=== PATIENT | male | born 1945 | race Caucasian/White ===

== ENCOUNTER 2017-07-29 05:44 | Emergency (ER) | payer MEDICARE ==
--- NOTE | 2017-07-29 08:20 | RAD ---
RIGHT FOOT 3 VIEWS: Date: 07/29/17 PROVIDED CLINICAL HISTORY: Foot pain status post fall. FINDINGS: There are obliquely oriented, mildly displaced fractures of the second and third metatarsals at the p roximal metatarsal shafts. Nondisplaced fracture involving the fourth metatarsal in the region of the proximal metatarsal shaft is also demonstrated. Alignment at the Lisfranc joint appears preserved. N o additional fracture is evident. Degenerative changes are seen at the first MTP joint. Vascular calc ifications are seen. Plantar calcaneal enthesophyte formation noted. IMPRESSION: Second through fourth metatarsal shaft fractures as above. POS: [facility]
== END 2017-07-29 07:48 | disposition home or self-care (01) ==
LOC: ERS 05:44
DX: S92.314A Nondisplaced fracture of first metatarsal bone, right foot, initial encounter for closed fracture (principal); S92.324A Nondisplaced fracture of second metatarsal bone, right foot, initial encounter for closed fracture; S92.344A Nondisplaced fracture of fourth metatarsal bone, right foot, initial encounter for closed fracture; S92.334A Nondisplaced fracture of third metatarsal bone, right foot, initial encounter for closed fracture; E11.22 Type 2 diabetes mellitus with diabetic chronic kidney disease; I12.0 Hypertensive chronic kidney disease with stage 5 chronic kidney disease or end stage renal disease; N18.6 End stage renal disease; Z79.899 Other long term (current) drug therapy; W19.XXXA Unspecified fall, initial encounter
CPT/HCPCS: 28470

== ENCOUNTER 2017-08-09 09:29 | Outpatient (CLI) | payer MEDICARE ==
--- NOTE | 2017-08-09 12:03 | HP ---
DATE OF SERVICE: 08/09/2017 HISTORY OF PRESENT ILLNESS: Mr. Rico Chandler is a very pleasant 72-year-old gentleman who pres ents to the Wound Center for evaluation of an ulceration of the left medial buttock. The patient sta zaina that the ulceration has been present for approximately 2 months. He states that 1 month ago; how ever, the ulceration became associated with discomfort and at this time, he was seen by Dr. Arora. The patient states that he was placed on a course of p.o. antibiotics by Dr. Arora. He states that in add ition, he was instructed to perform dressing changes of a steroid cream followed by a secondary dress ing twice a day. The patient was told that if the ulceration fails to heal, he should present to the Wound Center for further evaluation and treatment. PAST MEDICAL HISTORY: 1. Hypertension. 2. Diabetes mellitus. 3. Obstructive sleep apnea. 4. Charcot arthropathy of the left ankle. 5. End-stage renal disease. 6. Secondary hyperparathyroidism. 7. Chronic obstructive pulmonary disease. 8. Benign prostatic hypertrophy. 9. Diverticulosis. 10. Anemia of renal disease. 11. History of lower GI bleeding secondary to hemorrhoids. 12. History of subdural hematoma. 13. Peripheral vascular disease. PAST SURGICAL HISTORY: 1. Surgery for strabismus on the left eye. 2. Right eye surgery. 3. Tonsillectomy. 4. Hemodialysis access procedures. 5. 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 MEDICATIONS: The patient does not have a list of his medications with him today. ALLERGIES: LATEX. SOCIAL HISTORY: Negative for tobacco or EtOH use. FAMILY HISTORY: Significant for diabetes mellitus. The patient states that his mother was diagnosed with diabetes mellitus. Family history is negative for coronary artery disease. PHYSICAL EXAMINATION: VITAL SIGNS: Temperature 97.8, pulse 72, respirations 18 and blood pressure 133/61. Accu-Chek 114. GENERAL: A 72-year-old gentleman sitting on chair in examination room in no acute distress. HEENT: Normocephalic and atraumatic. NECK: No nuchal rigidity. CHEST: Clear to auscultation. CARDIAC: Regular rate and rhythm. ABDOMEN: Soft. EXTREMITIES: No clubbing, cyanosis or edema. NEUROLOGIC: Grossly nonfocal. BACK: A wound of the left medial buttock is present, which measures approximately 0.8 x 0.8 cm. Gra nulation tissue is present within the wound margins. Necrotic and nonviable tissue present within th e wound margins was debrided with an excisional full-thickness debridement with the use of a curette. Desiccated tissue at the periphery of the wound was excised with the use of scissors. No purulent drainage is associated with the wound. No erythema of the skin surrounding the wound is present. No maceration of the skin of the periwound is noted. ASSESSMENT AND PLAN: 1. Left medial buttock ulceration as described above. Dressing changes of Arglaes powder and border ed gauze will be initiated today. These dressing changes are to be performed on a daily basis after cleansing and irrigation with the assistance of Home Health. No antibiotics will be prescribed today based upon the appearance of the wound. I will see Mr. Chandler again in 1 week. 2. Hypertension. 3. Diabetes mellitus. The patient's Accu-Chek in clinic today is 114. The patient has been told th at for optimal wound healing, his blood glucoses should remain below 150. 4. Obstructive sleep apnea. 5. Charcot arthropathy of left ankle. 6. End-stage renal disease. 7. Secondary hyperparathyroidism. 8. Chronic obstructive pulmonary disease. 9. Benign prostatic hypertrophy. 10. Diverticulosis. 11. Anemia of renal disease. 12. History of lower gastrointestinal bleeding secondary to hemorrhoids. 13. History of subdural hematoma. 14. Peripheral vascular disease.
[2017-08-11] MEDS ORDERED: Sodium Chloride 0.9% 15 ML NEB ONE (12:29)
[2017-08-11] MEDS ORDERED: Lidocaine 2% Jelly 5 ML TUBE ONE (12:29)
== END 2017-08-09 09:30 | disposition home or self-care (01) ==
LOC: WCC 09:29
PROVIDERS: ATTEND Family Medicine
DX: E11.622 Type 2 diabetes mellitus with other skin ulcer (principal); L98.419 Non-pressure chronic ulcer of buttock with unspecified severity; I12.0 Hypertensive chronic kidney disease with stage 5 chronic kidney disease or end stage renal disease; E11.22 Type 2 diabetes mellitus with diabetic chronic kidney disease; N18.6 End stage renal disease; D63.1 Anemia in chronic kidney disease; N25.81 Secondary hyperparathyroidism of renal origin; J44.9 Chronic obstructive pulmonary disease, unspecified; N40.0 Benign prostatic hyperplasia without lower urinary tract symptoms; K57.90 Diverticulosis of intestine, part unspecified, without perforation or abscess without bleeding; M14.672 Charcot's joint, left ankle and foot; G47.33 Obstructive sleep apnea (adult) (pediatric); I73.9 Peripheral vascular disease, unspecified; Z87.19 Personal history of other diseases of the digestive system; Z86.79 Personal history of other diseases of the circulatory system
CPT/HCPCS: 11042; 97139; G0463; 99203

== ENCOUNTER 2017-08-16 10:13 | Outpatient (CLI) | payer MEDICARE ==
--- NOTE | 2017-08-16 11:00 | PRG ---
DATE OF SERVICE: 08/16/2017 HISTORY: Mr. Rico Chandler is a very pleasant 72-year-old gentleman who presents to the Wound Cent er for evaluation of an ulceration of the right medial buttock. The patient stated that the ulcerati on had been present for approximately 2 months when he initially presented to the Wound Center. He s tated that 1 month prior to being seen in the Wound Center, the ulceration became associated with dis comfort and at this time, he was seen by Dr. Arroa. The patient stated that he was placed on a course of p.o. antibiotics by Dr. Arora. He stated that in addition, he was instructed to perform dressing ch anges of a steroid cream followed by a secondary dressing twice a day. The patient was told that if the ulceration fail to heal, he should present to the Wound Center for further evaluation and treatme nt. After being seen in the Wound Center, the patient was placed on dressing changes of Arglaes powd er and bordered gauze on a daily basis after cleansing and irrigation with the assistance of [facility]. The patient has been receiving these dressing changes as prescribed. PHYSICAL EXAMINATION: VITAL SIGNS: Temperature 97.4, pulse 60, respirations 16, blood pressure 121/60. Accu-Chek 166. EXTREMITIES: A wound of the right medial buttock is present, which measures approximately 0.9 x 0.6 cm. The dimensions of the wound at the time of the patient's visit on 08/09/2017 were approximately 0.8 x 0.8 cm. Granulation tissue is present within the wound margins. Nonviable tissue present with in the wound margins was debrided with an excisional full-thickness debridement with the use of a cur ette. No purulent drainage is associated with the wound. No erythema of the skin surrounding the wo und is present. No maceration of the skin of the periwound is noted. ASSESSMENT AND PLAN: 1. Right medial buttock ulceration as described above. Dressing changes of Arglaes powder and borde red gauze will be continued on a daily basis after cleansing and irrigation with the assistance of [facility]. I will see Mr. Chandler again in two weeks. 2. Hypertension. 3. Diabetes mellitus. The patient's Accu-Chek in clinic today is 166. The patient has been reminde d that for optimal wound healing, his blood glucoses should remain below 150. 4. Obstructive sleep apnea. 5. Charcot's arthropathy of left ankle. 6. End-stage renal disease. 7. Secondary hyperparathyroidism. 8. Chronic obstructive pulmonary disease. 9. Benign prostatic hypertrophy. 10. Diverticulosis. 11. Anemia of renal disease. 12. History of lower gastrointestinal bleeding secondary to hemorrhoids. 13. History of subdural hematoma. 14. Peripheral vascular disease.
[2017-08-16] MEDS ORDERED: Sodium Chloride 0.9% 15 ML NEB ONE (17:55)
[2017-08-16] MEDS ORDERED: Lidocaine 2% Jelly 5 ML TUBE ONE (17:55)
== END 2017-08-16 10:14 | disposition home or self-care (01) ==
LOC: WCC 10:13
PROVIDERS: ATTEND Family Medicine
DX: E11.622 Type 2 diabetes mellitus with other skin ulcer (principal); L98.419 Non-pressure chronic ulcer of buttock with unspecified severity; E11.22 Type 2 diabetes mellitus with diabetic chronic kidney disease; I12.0 Hypertensive chronic kidney disease with stage 5 chronic kidney disease or end stage renal disease; N18.6 End stage renal disease; G47.33 Obstructive sleep apnea (adult) (pediatric); J44.9 Chronic obstructive pulmonary disease, unspecified; M14.672 Charcot's joint, left ankle and foot; N25.81 Secondary hyperparathyroidism of renal origin; N40.0 Benign prostatic hyperplasia without lower urinary tract symptoms; K57.90 Diverticulosis of intestine, part unspecified, without perforation or abscess without bleeding; D63.1 Anemia in chronic kidney disease; I73.9 Peripheral vascular disease, unspecified; Z87.19 Personal history of other diseases of the digestive system; Z86.69 Personal history of other diseases of the nervous system and sense organs
CPT/HCPCS: A4218

== ENCOUNTER 2017-08-30 10:01 | Outpatient (CLI) | payer MEDICARE ==
[~2017-08-30 10:01] MED LIST: Lidocaine 2% Jelly 5 ML TUBE ONE; Sodium Chloride 0.9% 15 ML NEB ONE
--- NOTE | 2017-08-30 12:16 | PRG ---
DATE OF SERVICE: 08/30/2017 HISTORY: Mr. Rico Chandler is a very pleasant 72-year-old gentleman, who presents to the [facility] for evaluation of an ulceration of the right medial buttock. The patient stated that the ul ceration had been present for approximately 2 months when he initially presented to the Wound Center. He stated that 1 month prior to being seen in the Wound Center, the ulceration became associated wi th discomfort and at this time he was seen by Dr. Arora. The patient stated that he was placed on a co urse of p.o. antibiotics by Dr. Arora. He stated that in addition, he was instructed to perform dressi ng changes of the steroid cream followed by a secondary dressing twice a day. The patient was told t hat if the ulceration failed to heal, he should present to the Wound Center for further evaluation an d treatment. After being seen in the Wound Center, the patient was placed on dressing changes of Arg laes powder and bordered gauze on a daily basis after cleansing and irrigation with the assistance of Home Health. The patient has been receiving these dressing changes as prescribed. PHYSICAL EXAMINATION: VITAL SIGNS: Temperature 97.5, pulse 73, respirations 19, blood pressure 142/65. Accu-Chek is 127. EXTREMITIES: A wound of the right medial buttock is present, which measures approximately 0.8 x 0.6 cm. The dimensions of the wound at the time of the patient's visit on 08/16/2017 were approximately 0.9 x 0.6 cm. Granulation tissue is present within the wound margins. Nonviable tissue present with in the wound margins was debrided with an excisional full-thickness debridement with the use of a cur ette. No purulent drainage is associated with the wound. No erythema of the skin surrounding the wo und is present. No maceration of the skin of the periwound is noted. ASSESSMENT AND PLAN: 1. Right medial buttock ulceration as described above. Dressing changes of Arglaes powder will be d iscontinued. Dressing changes of Medihoney gauze and Tegaderm foam will be initiated today. These d ressing changes are to be performed every other day after cleansing and irrigation with the assistanc e of Home Health. I will see Mr. Chandler again in two weeks. 2. Hypertension. 3. Diabetes mellitus. The patient's Accu-Chek in clinic today is 127. The patient has been reminde d that for optimal wound healing, his blood glucoses should remain below 150. 4. Obstructive sleep apnea. 5. Charcot's arthropathy of left ankle. 6. End-stage renal disease. 7. Secondary hyperparathyroidism. 8. Chronic obstructive pulmonary disease. 9. Benign prostatic hypertrophy. 10. Diverticulosis. 11. Anemia of renal disease. 12. History of lower gastrointestinal bleeding secondary to hemorrhoids. 13. History of subdural hematoma. 14. History of peripheral vascular disease.
== END 2017-08-30 10:02 | disposition home or self-care (01) ==
LOC: WCC 10:01
PROVIDERS: ATTEND Family Medicine
DX: E11.622 Type 2 diabetes mellitus with other skin ulcer (principal); L98.419 Non-pressure chronic ulcer of buttock with unspecified severity; E11.610 Type 2 diabetes mellitus with diabetic neuropathic arthropathy; I12.0 Hypertensive chronic kidney disease with stage 5 chronic kidney disease or end stage renal disease; E11.22 Type 2 diabetes mellitus with diabetic chronic kidney disease; N18.6 End stage renal disease; D63.1 Anemia in chronic kidney disease; N25.81 Secondary hyperparathyroidism of renal origin; G47.33 Obstructive sleep apnea (adult) (pediatric); J44.9 Chronic obstructive pulmonary disease, unspecified; N40.0 Benign prostatic hyperplasia without lower urinary tract symptoms; K57.90 Diverticulosis of intestine, part unspecified, without perforation or abscess without bleeding; Z86.79 Personal history of other diseases of the circulatory system; Z87.898 Personal history of other specified conditions; Z87.19 Personal history of other diseases of the digestive system
CPT/HCPCS: 11042; A4218

== ENCOUNTER 2017-09-13 09:53 | Outpatient (CLI) | payer MEDICARE ==
[2017-09-13] MEDS ORDERED: Lidocaine 2% Jelly 5 ML TUBE ONE (10:00)
[2017-09-13] MEDS ORDERED: Sodium Chloride 0.9% 15 ML NEB ONE (10:00)
--- NOTE | 2017-09-13 11:26 | PRG ---
DATE OF SERVICE: 09/13/2017 HISTORY: Mr. Rico Chandler is a very pleasant 72-year-old gentleman who presents to the Wound Center for evaluation of an ulceration of the right medial buttock. The patient previously stated t hat the ulceration had been present for approximately 2 months when he initially presented to the [facility]. He stated that 1 month prior to being seen in the Wound Center, the ulceration became ass ociated with discomfort and at this time he was seen by Dr. Arora. The patient stated that he was plac ed on a course of p.o. antibiotics by Dr. Arora. He stated that in addition, he was instructed to perf orm dressing changes of a steroid cream followed by secondary dressing twice a day. The patient was told that if the ulceration fail to heal, he should present to the Wound Center for further evaluatio n and treatment. After being seen in the Wound Center, the patient was placed on dressing changes of Arglaes powder and bordered gauze on a daily basis after cleansing and irrigation with the assistanc e of [facility]. The patient received these dressing changes as prescribed. At the time of the pat ient's last visit, dressing changes of Medihoney were initiated. The patient has been receiving thes e dressing changes every other day after cleansing and irrigation also as prescribed. PHYSICAL EXAMINATION: VITAL SIGNS: Temperature 97.5, pulse 63, respirations 18, blood pressure 154/69. Accu-Chek 154. EXTREMITIES: A wound of the right medial buttock is present which measures approximately 0.3 x 0.5 c m. The dimensions of the wound at the time of the patient's visit on 08/30/2017 were approximately 0 .8 x 0.6 cm. Granulation tissue is present within the wound margins. Nonviable tissue present withi n the wound margins was debrided with an excisional full-thickness debridement with the use of a cure tte and scissors. No purulent drainage is associated with the wound. No erythema of the skin surrou nding the wound is present. No maceration of the skin of the periwound is noted. ASSESSMENT AND PLAN: 1. Right medial buttock ulceration as described above. Dressing changes of Medihoney gauze and Opti foam will be continued every other day after cleansing and irrigation with the assistance of [facility]. I will see Mr. Chandler again in two weeks if ulceration is still present at this time. 2. Hypertension. 3. Diabetes mellitus. The patient's Accu-Chek in clinic today is 154. The patient has been reminde d that for optimal wound healing, his blood glucoses should remain below 150. 4. Obstructive sleep apnea. 5. Charcot's arthropathy of left ankle. 6. End-stage renal disease. 7. Secondary hyperparathyroidism. 8. Chronic obstructive pulmonary disease. 9. Benign prostatic hypertrophy. 10. Diverticulosis. 11. Anemia of renal disease. 12. History of lower gastrointestinal bleeding secondary to hemorrhoids. 13. History of subdural hematoma. 14. History of peripheral vascular disease.
== END 2017-09-13 09:54 | disposition home or self-care (01) ==
LOC: WCC 09:53
PROVIDERS: ATTEND Family Medicine
DX: L89.319 Pressure ulcer of right buttock, unspecified stage (principal); G47.33 Obstructive sleep apnea (adult) (pediatric); E11.610 Type 2 diabetes mellitus with diabetic neuropathic arthropathy; E11.22 Type 2 diabetes mellitus with diabetic chronic kidney disease; I12.0 Hypertensive chronic kidney disease with stage 5 chronic kidney disease or end stage renal disease; N18.6 End stage renal disease; D63.1 Anemia in chronic kidney disease; J44.9 Chronic obstructive pulmonary disease, unspecified; N40.0 Benign prostatic hyperplasia without lower urinary tract symptoms; K57.90 Diverticulosis of intestine, part unspecified, without perforation or abscess without bleeding; N25.81 Secondary hyperparathyroidism of renal origin; Z87.19 Personal history of other diseases of the digestive system; Z86.79 Personal history of other diseases of the circulatory system

== ENCOUNTER 2017-09-27 09:59 | Outpatient (CLI) | payer MEDICARE ==
--- NOTE | 2017-09-27 12:09 | PRG ---
DATE OF SERVICE: 09/27/2017 HISTORY: Mr. Rico Chandler is a very pleasant 72-year-old gentleman who presents to the Wound Center for evaluation of an ulceration of the right medial buttock. The patient previously stated t hat the ulceration had been present for approximately 2 months when he initially presented to the [facility]. The patient stated that one month prior to being seen in the Wound Center, the ulceration became associated with discomfort and at this time he was seen by Dr. Arora. The patient stated that he was placed on a course of p.o. antibiotics by Dr. Arora. He stated that in addition, he was instruc chastity to perform dressing changes of a steroid cream followed by a secondary dressing twice a day. The patient was told that if the ulceration failed to heal, he should present to the Wound Center for fu rther evaluation and treatment. After being seen in the Wound Center, the patient was placed on dres sing changes of Arglaes powder and bordered gauze on a daily basis after cleansing and irrigation wit h the assistance of Home Health. The patient received these dressing changes as prescribed. Subsequ ently, dressing changes of Medihoney were initiated. The patient has been receiving these dressing c hanges every other day after cleansing and irrigation also with the assistance of Home Health. PHYSICAL EXAMINATION: VITAL SIGNS: Temperature 97.5, pulse 59, respirations 18, blood pressure 141/66. Accu-Chek 166. EXTREMITIES: A wound of the right medial buttock is present which measures approximately 0.5 x 0.7 c m. Granulation tissue is present within the wound margins. Necrotic and nonviable tissue present wi thin the wound margins was debrided with an excisional full-thickness debridement with the use of a c urette and scissors. No purulent drainage is associated with the wound. No erythema of the skin ger rounding the wound is present. No maceration of the skin of the periwound is noted. ASSESSMENT AND PLAN: 1. Right medial buttock ulceration as described above. Dressing changes of Medihoney gauze and Opti foam will be continued every other day after cleansing and irrigation with the assistance of Home [facility] for 1 more week or until the ulceration has healed completely. The wound has almost completely h ealed and Mr. Chandler will be discharged from clinic today with followup on a p.r.n. basis. 2. Hypertension. 3. Diabetes mellitus. The patient's Accu-Chek in clinic today is 166. The patient has been reminde d that for optimal wound healing, his blood glucoses should remain below 150. 4. Obstructive sleep apnea. 5. Charcot's arthropathy of left ankle. 6. End-stage renal disease. 7. Secondary hyperparathyroidism. 8. Chronic obstructive pulmonary disease. 9. Benign prostatic hypertrophy. 10. Diverticulosis. 11. Anemia of renal disease. 12. History of lower gastrointestinal bleeding secondary to hemorrhoids. 13. History of subdural hematoma. 14. History of peripheral vascular disease.
== END 2017-09-27 10:00 | disposition home or self-care (01) ==
LOC: WCC 09:59
PROVIDERS: ATTEND Family Medicine
DX: L98.419 Non-pressure chronic ulcer of buttock with unspecified severity (principal); G47.33 Obstructive sleep apnea (adult) (pediatric); E11.22 Type 2 diabetes mellitus with diabetic chronic kidney disease; I12.0 Hypertensive chronic kidney disease with stage 5 chronic kidney disease or end stage renal disease; N18.6 End stage renal disease; D63.1 Anemia in chronic kidney disease; E11.610 Type 2 diabetes mellitus with diabetic neuropathic arthropathy; N25.81 Secondary hyperparathyroidism of renal origin; J44.9 Chronic obstructive pulmonary disease, unspecified; N40.0 Benign prostatic hyperplasia without lower urinary tract symptoms; K57.90 Diverticulosis of intestine, part unspecified, without perforation or abscess without bleeding; Z86.79 Personal history of other diseases of the circulatory system; Z87.19 Personal history of other diseases of the digestive system
CPT/HCPCS: 11042

== ENCOUNTER 2018-02-14 14:30 | Outpatient (CLI) | payer MEDICARE ==
--- NOTE | 2018-02-14 15:49 | PRG ---
DATE OF SERVICE: 02/14/2018 HISTORY: Mr. Rico Chandler is a very pleasant 72-year-old gentleman, who presents to the [facility] for evaluation of an ulceration of the right medial buttock. The patient was previously seen in the Wound Center for an ulceration of the right medial buttock on 09/27/2017. The patient states viola t after healing completely, the ulceration recurred. The patient states that he was recently seen by Dr. Arora and at this time referred to the Wound Center for further evaluation and treatment. The pat ient states that he spends long periods of time in a chair, particularly in dialysis. The patient st ates that he tries to offload the right buttock wound with the use of a cushion. The patient has no other complaints today. He denies any fever or chills. PHYSICAL EXAMINATION: VITAL SIGNS: Temperature 97.6, pulse 71, respirations 18, blood pressure 155/71. Accu-Chek 172. EXTREMITIES: A wound of the right medial buttock is present, which measures approximately 0.6 x 0.9 cm. Granulation tissue is present within the wound margins. Necrotic and nonviable tissue present w ithin the wound margins was debrided with an excisional full-thickness debridement with the use of a curette. No purulent drainage is associated with the wound. No erythema of the skin surrounding the wound is present. No maceration of the skin of the periwound is noted. ASSESSMENT AND PLAN: 1. Right medial buttock ulceration as described above. Dressing changes of Medihoney and Mepilex sondra rder are to be performed on a daily basis after cleansing and irrigation with the assistance of Home Health. I will see Mr. Chandler again in two weeks. 2. Hypertension. 3. Diabetes mellitus. The patient's Accu-Chek in clinic today is 172. The patient has been reminde d that for optimal wound healing, his blood glucoses should remain below 150. 4. Obstructive sleep apnea. 5. Charcot's arthropathy of left ankle. 6. End-stage renal disease. 7. Secondary hyperparathyroidism. 8. Chronic obstructive pulmonary disease. 9. Benign prostatic hypertrophy. 10. Diverticulosis. 11. Anemia of renal disease. 12. History of lower gastrointestinal bleeding secondary to hemorrhoids. 13. History of subdural hematoma. 14. History of peripheral vascular disease.
== END 2018-02-14 14:31 | disposition home or self-care (01) ==
LOC: WCC 14:30
PROVIDERS: ATTEND Family Medicine
DX: E11.622 Type 2 diabetes mellitus with other skin ulcer (principal); L98.499 Non-pressure chronic ulcer of skin of other sites with unspecified severity; I12.0 Hypertensive chronic kidney disease with stage 5 chronic kidney disease or end stage renal disease; N18.6 End stage renal disease; D63.1 Anemia in chronic kidney disease; J44.9 Chronic obstructive pulmonary disease, unspecified; M14.672 Charcot's joint, left ankle and foot; G47.33 Obstructive sleep apnea (adult) (pediatric); N40.0 Benign prostatic hyperplasia without lower urinary tract symptoms; N25.81 Secondary hyperparathyroidism of renal origin; Z87.19 Personal history of other diseases of the digestive system; Z86.79 Personal history of other diseases of the circulatory system
CPT/HCPCS: A4218

== ENCOUNTER 2018-02-28 14:26 | Outpatient (CLI) | payer MEDICARE ==
[2018-02-28] MEDS ORDERED: Sodium Chloride 0.9% 15 ML NEB ONE (15:00)
--- NOTE | 2018-02-28 17:28 | PRG ---
DATE OF SERVICE: 02/28/2018 HISTORY: Mr. Rico Chandler is a very pleasant 72-year-old gentleman who presents to the Wound Cent er for evaluation of an ulceration of the right medial buttock. The patient was previously seen in [facility] for an ulceration of the right medial buttock on 09/27/2017. The patient stated that after healing completely, the ulceration recurred. The patient stated that he was recently seen by Dr. Arora and at this time referred to the Wound Center for further evaluation and treatment. The veronica ent stated that he spends long periods of time in a chair, particularly in dialysis. The patient sta chastity that he tries to offload the right buttock wound with the use of cushion. Mr. Chadnler has no oth er complaints today. He denies any fever or chills. PHYSICAL EXAMINATION: VITAL SIGNS: Temperature 97.6, pulse 60, respirations 17, blood pressure 152/72. Accu-Chek 140. EXTREMITIES: The wound of the right medial buttock has healed completely. ASSESSMENT AND PLAN: 1. Right medial buttock ulceration. As stated above, the wound has healed completely. Mr. Chandler will be discharged from clinic today with followup on a p.r.n. basis. 2. Hypertension. 3. Diabetes mellitus. The patient's Accu-Chek in clinic today is 140. The patient has been reminde d that for optimal wound healing, his blood glucoses should remain below 150. 4. Obstructive sleep apnea. 5. Charcot's arthropathy of left ankle. 6. End-stage renal disease. 7. Secondary hyperparathyroidism. 8. Chronic obstructive pulmonary disease. 9. Benign prostatic hypertrophy. 10. Diverticulosis. 11. Anemia of renal disease. 12. History of lower gastrointestinal bleeding secondary to hemorrhoids. 13. History of subdural hematoma. 14. History of peripheral vascular disease.
== END 2018-02-28 14:27 | disposition home or self-care (01) ==
LOC: WCC 14:26
PROVIDERS: ATTEND Family Medicine
DX: E11.622 Type 2 diabetes mellitus with other skin ulcer (principal); L98.419 Non-pressure chronic ulcer of buttock with unspecified severity; I12.9 Hypertensive chronic kidney disease with stage 1 through stage 4 chronic kidney disease, or unspecified chronic kidney disease; E11.22 Type 2 diabetes mellitus with diabetic chronic kidney disease; N18.6 End stage renal disease; D63.1 Anemia in chronic kidney disease; J44.9 Chronic obstructive pulmonary disease, unspecified; G47.33 Obstructive sleep apnea (adult) (pediatric); N40.0 Benign prostatic hyperplasia without lower urinary tract symptoms; K57.30 Diverticulosis of large intestine without perforation or abscess without bleeding; N25.81 Secondary hyperparathyroidism of renal origin; E11.610 Type 2 diabetes mellitus with diabetic neuropathic arthropathy; Z86.79 Personal history of other diseases of the circulatory system; Z87.820 Personal history of traumatic brain injury; Z87.19 Personal history of other diseases of the digestive system
CPT/HCPCS: 97602; A4218

== ENCOUNTER 2019-03-31 13:31 | Inpatient (IN) | payer MEDICARE ==
[2019-03-31] MEDS ORDERED: Albuterol Sulfate 2.5 mg/3 ml Neb ONE (13:45)
[2019-03-31] MEDS ORDERED: Furosemide 40 MG/4 ML VIAL ONE (13:46)
[2019-03-31 13:55] LABS: Actual Bicarbonate (HCO3a) 22.4 mEq/L (22-28); Analyzer IN Cardio ER; CO2 Tension 55.4 mmHg (35.0-45.0); Calcium, Ionized 1.11 mmol/L (1.12-1.30); O2 Tension (PaO2) 64.3 mmHg (> 70.0); Potassium - ABG Lab 4.41 mmol/L (3.70-5.30)
--- NOTE | 2019-03-31 13:57 | RAD ---
RADIOGRAPH CHEST 1 VIEW: DATE: 03/31/2019 TIME: 1:47 PM HISTORY: 73-year-old male in respiratory distress. COMPARISON: 08/27/2015 FINDINGS: New finding of mild-moderate interstitial densities throughout the bilateral mid and left lower lung zone.. These are confluent into alveolar density at right lower lung zone. Previously demonstrated right-sided dialysis catheter is no longer present. Cardiac size at upper limits of normal or mildly enlarged. No pneumothorax. IMPRESSION: Evidence for pulmonary edema.
[2019-03-31 14:04] LABS: Puncture Site LRA; pH, Arterial 7.22 (7.35-7.45)
[2019-03-31 14:09] LABS: Hemoglobin 12.2 g/dL (14.0-18.0); Mean Corpuscular Hemoglobin 33.7 pg (27.0-31.0); Mean Platelet Volume 9.6 fL (7.4-10.4); Platelet Count 221 thou/uL (130-400); RBC Distribution Width 13.1 % (11.5-14.5); Red Blood Cell (RBC) Count 3.63 mill/uL (4.70-6.10); White Blood Cell (WBC) Count 12.7 thou/uL (4.8-10.8)
[2019-03-31] MEDS ORDERED: Rocuronium Bromide 10 MG/ML (10ML VIAL) ONE (14:09)
[2019-03-31] MEDS ORDERED: Ketamine 50 MG/ML (10ML VIAL) ONE (14:09)
[2019-03-31 14:25] LABS: ALT (SGPT) 39 U/L (8-55); AST (SGOT) 34 U/L (5-34); Albumin 4.1 g/dL (3.4-4.8); Alkaline Phosphatase 119 U/L (40-110); Anion Gap 23 mmol/L (10-20); BUN (Urea Nitrogen) 35 mg/dL (8.4-25.7); Bilirubin, Total 0.6 mg/dL (0.2-1.2); CK (CPK) 169 U/L (30-200); Calc. Creatinine Clearance 0 mL/min (70-130); Calcium 8.7 mg/dL (7.8-10.44); Carbon Dioxide 22 mmol/L (23-31); Chloride 100 mmol/L (98-107); Estimated GFR-MDRD 10; Globulin 3.4 g/dL (2.4-3.5); Glucose 381 mg/dL (83-110); Potassium 4.2 mmol/L (3.5-5.1); Protein, Total 7.5 g/dL (5.8-8.1); Sodium 141 mmol/L (136-145)
[2019-03-31] MEDS ORDERED: fentaNYL Citrate/PF 2,000 MCG in Sodium Chloride 0.9% 60 ML IV SCH ×2 (14:30→21:15)
[2019-03-31 14:42] LABS: Band 6 % (5-11); Eosinophils 1 % (0-10); Lymphocytes 15 % (21-51); MDiff Complete? YES; Macrocytosis SLIGHT = 6-15 cells (100X) (0-5/hpf); Monocytes 5 % (0-10); Neutrophil 45 % (42-75); Platelet Morphology Comment Appears Adequate; Polychromasia SLIGHT = 2-3 cells (100X) (0-2/hpf); Reactive Lymphocytes 28 % (0-10)
[2019-03-31 14:56] LABS: CKMB 3.4 ng/mL (0-6.6)
[2019-03-31] MEDS ORDERED: Sodium Bicarb 50 MEQ/50 ML Abboject 8.4% SYRINGE ONE (15:00)
[2019-03-31] MEDS ORDERED: Calcium Chloride 1 GM/10 ML Abboject SYRINGE ONE (15:00)
[2019-03-31] MEDS ORDERED: Dextrose 50% Abboject 50 ML SYRINGE ONE (15:00)
[2019-03-31 15:02] LABS: Actual Bicarbonate (HCO3a) 23.4 mEq/L (22-28); Analyzer IN Cardio ER; Base Excess (BEa) -0.9 mEq/L (-2.0 to +3.0); CO2 Tension 37.2 mmHg (35.0-45.0); Calcium, Ionized 1.07 mmol/L (1.12-1.30); Carboxyhemoglobin (COHb) 0.5 gm% (0.0-3.0); Hemoglobin (Hb) 11.9 g/dL (14.0-18.0); O2 Tension (PaO2) 79.7 mmHg (> 70.0); Potassium - ABG Lab 4.27 mmol/L (3.70-5.30); pH, Arterial 7.42 (7.35-7.45)
[2019-03-31 15:06] LABS: Puncture Site LRA
--- NOTE | 2019-03-31 15:30 | RAD ---
RADIOGRAPH CHEST 1 VIEW: DATE: 03/31/2019 TIME: 2:29 PM HISTORY: 73-year-old male status post intubation for respiratory distress COMPARISON: 03/31/2019 1:47 PM FINDINGS: New endotracheal tube with distal tip at mid thoracic trachea. New esophagogastric tube with distal p ortion in left upper quadrant. No interval change in diffuse bilateral interstitial densities, but the alveolar density at right lower lung zone has improved. Mild blunting of lateral costophrenic ang les bilaterally. No pneumothorax. No cardiomegaly. IMPRESSION: 1) status post intubation with endotracheal tube and esophagogastric tube. 2) noncardiogenic pulmonary interstitial edema. 3) small bilateral pleural effusions.
[2019-03-31 16:34] LABS: HBSAg Index 0.17 S/CO (0-0.99); Hep B Surf Ag Non-Reactive S/CO (NonReactive)
--- NOTE | 2019-03-31 18:16 | PDOC.HHP ---
Hospitalist HPI - History of Present Illness shortness of breath History of Present Illness: This is a 73 year old male with past medical history of ESRD, hyperlipidemia, hypertension who presented to ER with shortness of breath. History obtained from chart and nursing since patient was intubated upon examination. Patient had some shortness of breath that started last . It seemed to progressively get worst to the point where he couldn't breath and called EMS. They noted his oxygen saturation was in the 70's to 80's. The patient says he is compliant with his dialysis and received it yesterday. He received 2 duoneb, magnesium, epinephrine and solumedrol in the EMS. The patient was placed on BIPAP prior to arrival to the ER. The patient denies feeling any fevers, chills or chest pain prior to arrival. Vitals on arrival BP was noted to be 110 /69. ED Course: The patient was noted to be saturating 80% on BIPAP. Chest X ray showed pulmonary edema. EKG showed prolonged QT interval, mild ST elevation with subendocardial injury. Patient was given 80 mg IV lasix without urine output. ABG showed pH 7.22, PCO2 of 55. The patient was intubated. Bedside ECHO in the ER showed EF of approximately 30 to 40%, no Vazquez's sign evident. Troponin was 1.171. Cardiology was consulted in the ER. Nephrology was consulted in the ER and plan was to perform urgent dialysis tonight. Repeat ABG showed pH 7.4, CO2 37. When I saw him in the ER, the patient was awake and following commands with breathing tube, saturating 98%. The patient denies current pain, nausea, vomiting, diarrhea. Hospitalist ROS - Review of Systems ROS unobtainable: due to endotracheal tube Gastrointestinal: denies: diarrhea Hospitalist History - Past Medical History Cardiac: reports: HTN Pulmonary: reports: Other (VANITA) Renal/: reports: Chronic renal insuff, Benign prostatic enlarg. 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 Following commands, able to nod yes/no to ques Eye: PERRL, anicteric sclera ENT: normocephalic atraumatic, no oropharyngeal lesions Neck: supple, symmetric, no thyromegaly Heart: RRR, no murmur, no gallops, no rubs Respiratory: CTAB, no wheezes, no rales, no ronchi, normal percussion Gastrointestinal: soft, non-tender, non-distended, normal bowel sounds Extremities: no cyanosis, no clubbing, no edema Skin: normal turgor, no lesions, no rashes Neurological: cranial nerve grossly intact, normal sensation to touch, no focal deficits, no new deficit Neurological - other findings: squeezes fingers to commands Musculoskeletal: normal tone, normal strength, no muscle wasting Hospitalist Results - Labs Result Diagrams: 03/31/19 13:52 03/31/19 13:52 Lab results: WBC 12.7 thou/uL (4.8-10.8) H 03/31/19 13:52 Hgb 12.2 g/dL (14.0-18.0) L 03/31/19 13:52 Hct 37.1 % (42.0-52.0) L 03/31/19 13:52 MCV 102.0 fL (78.0-98.0) H 03/31/19 13:52 Plt Count 221 thou/uL (130-400) 03/31/19 13:52 Band Neuts % (Manual) 6 % (5-11) 03/31/19 13:52 ABG pH 7.42 (7.35-7.45) 03/31/19 14:38 ABG pCO2 37.2 mmHg (35.0-45.0) 03/31/19 14:38 ABG pO2 79.7 mmHg (> 70.0) H 03/31/19 14:38 Sodium 141 mmol/L (136-145) 03/31/19 13:52 Potassium 4.2 mmol/L (3.5-5.1) 03/31/19 13:52 Chloride 100 mmol/L (98-107) 03/31/19 13:52 Carbon Dioxide 22 mmol/L (23-31) L 03/31/19 13:52 BUN 35 mg/dL (8.4-25.7) H 03/31/19 13:52 Creatinine 5.79 mg/dL (0.7-1.3) H 03/31/19 13:52 Glucose 381 mg/dL (83-110) H 03/31/19 13:52 Calcium 8.7 mg/dL (7.8-10.44) 03/31/19 13:52 Total Bilirubin 0.6 mg/dL (0.2-1.2) 03/31/19 13:52 AST 34 U/L (5-34) 03/31/19 13:52 ALT 39 U/L (8-55) 03/31/19 13:52 Alkaline Phosphatase 119 U/L (40-110) H 03/31/19 13:52 Creatine Kinase 169 U/L (30-200) 03/31/19 13:52 CK-MB (CK-2) 3.4 ng/mL (0-6.6) 03/31/19 13:52 Troponin I 1.171 ng/mL (< 0.028) H* 03/31/19 13:52 B-Natriuretic Peptide 1634.6 pg/mL (0-100) H 03/31/19 13:52 Serum Total Protein 7.5 g/dL (5.8-8.1) 03/31/19 13:52 Albumin 4.1 g/dL (3.4-4.8) 03/31/19 13:52 - EKG Interpretation EKG: Mild ST elevation versus J point elevation in anterior leads. ECHO bedside: reportedly 30-40% Chest X ray: pulmonary edema Hospitalist H&P A/P - Plan Plan: This is a 73 year old male with history of ESRD who presented with shortness of breath who is s/p intubation for flash pulmonary edema, admitted to CCU Acute hypoxic respiratory failure secondary to pulmonary edema - unclear as to cause of flash pulmonary edema. Troponins elevated, will continue to trend. Appreciate cardiology consult. Will order ECHO - patient did not have elevated BP on arrival and did not miss dialysis - nephrology consulted, will perform dialysis tonight - continue with current vent settings. Attempt extubation after dialysis potentially, will defer to Dr. iFnk. Currently on fentanyl drip - will start antibiotics empirically with IV ceftriaxone, switch to po if extubated Urine retention BPH - watt catheter attempted to be placed ,but unable to per nursing staff - urology consult - continue flomax ESRD - nephro consulted for dialysis Hyperlipidemia - hold statin for now since intubated Hypertension - hold nifedipine and losartan for now since intubated, resume if extubated - hydralazine prn for SBP > 180 Type II diabetes - insulin sliding scale, glargine 10 units daily - fingersticks q6h Code status: full code
[2019-03-31] MEDS ORDERED: hydrALAZINE 20 MG/ML VIAL SLOW IVP PRN (18:29)
[2019-03-31] MEDS ORDERED: predniSONE 20 MG TAB PO SCH (18:30)
[2019-03-31] MEDS ORDERED: Heparin 10,000 UNITS/ 10 ML VIAL SLOW IVP SCH (18:30)
[2019-03-31] MEDS ORDERED: Dextrose 50% Abboject 50 ML SYRINGE SLOW IVP PRN (18:30)
[2019-03-31] MEDS ORDERED: Dextrose 5% in Water 1,000 ML IV PRN (18:30)
[2019-03-31] MEDS ORDERED: cefTRIAXone\\ROCEPHIN 1 GM in Sodium Chloride 0.9% 100 ML IVPB SCH (18:30)
[2019-03-31] MEDS ORDERED: cefTRIAXone Sodium 1,000 MG in Syringe 0 ML IVPB SCH (18:30)
[2019-03-31] MEDS ORDERED: HumaLOG 300 UNITS/3 ML VIAL SC PRN (18:30)
[2019-03-31] MEDS ORDERED: SYSTANE 3.5 GM TUBE EA EYE PRN (18:31)
[2019-03-31] MEDS ORDERED: Insulin Glargine 10 UNITS in Pre-Filled Syringe SC SCH (18:45)
[2019-03-31 18:54] LABS: Hemoglobin 12.4 g/dL (14.0-18.0); Platelet Count 198 thou/uL (130-400)
--- NOTE | 2019-03-31 18:58 | CON ---
DATE OF CONSULTATION: 03/31/2019 SERVICE: Pulmonary Medicine. REASON FOR CONSULTATION: ICU patient. HISTORY OF PRESENT ILLNESS: The patient is a 73-year-old white male with end- stage renal disease, who presented to the hospital with abrupt onset of increasing shortness of breath. He presented to the Emergency Department. Originally, he was on BiPAP with 70% FiO2. He seems to be decompensated, so he is electively intubated. He was downstairs and emergent dialysis has been initiated. He was tucked into the ICU. Prior to this event, there was no reports of fevers, chills, cough, sputum production, nausea, vomiting, or fevers. In the ICU, his oxygen requirements have abruptly improved. He was having frothy pink pulmonary edema originally, but this has subsequently cleared. His blood pressures were low originally, but they firmed up very nicely. I cannot get any additional elements of the history from the patient, he is currently intubated and sedated. PAST MEDICAL HISTORY: 1. Type 2 diabetes mellitus. 2. Hypertension. 3. Dyslipidemia. 4. Obstructive sleep apnea. 5. End-stage renal disease. 6. Hyperparathyroidism, secondary. 7. COPD. 8. BPH. 9. Diverticulosis. 10. Anemia of chronic kidney disease. 11. History of lower GI bleed secondary to hemorrhoids. 12. History of subdural hematoma. 13. Peripheral vascular disease. PAST SURGICAL HISTORY: 1. Left eye surgery for strabismus. 2. Right eye surgery. 3. Tonsillectomy. 4. Hemodialysis. 5. Amputation of three toes on the left foot. ALLERGIES: LATEX. MEDICATIONS: List of his inpatient medications was reviewed. Multiple updates were made. SOCIAL HISTORY: Negative for alcohol, tobacco, or illicit drug use. ASSESSMENT: Noncontributory. REVIEW OF SYSTEMS: This cannot be obtained as the patient is currently intubated and sedated. PHYSICAL EXAMINATION: VITAL SIGNS: Afebrile. Pulse 62, blood pressure 136/77, respirations 22, and saturation 96%, currently on 31% FiO2 and PEEP of 5. GENERAL: The patient is awake and alert, in no apparent distress. LUNGS: Good air entry. Crackles are present. There is a prolonged expiratory phase, but no wheezing. HEART: Normal rate. Regular. ABDOMEN: Soft, nontender, and nondistended. Bowel sounds are positive. MUSCULOSKELETAL: No cyanosis or clubbing. There is no pitting in the bilateral lower extremities. NEUROLOGIC: Grossly nonfocal. LABORATORY DATA: WBC 12.7, hemoglobin 12.2, and platelets 221,000. Lymphocytes are 15%. A pH of 7.42, pCO2 of 37, and pO2 of 80, this is while on FiO2 of 40%. Creatinine 5.79, BUN 35. Anion gap is 23. Bicarb 22. Troponin 1.171. BNP 1600, and historic high. Liver function studies are otherwise unremarkable. IMAGING: Chest x-ray demonstrates pulmonary edema scattered throughout bilateral lung frances. Status post intubation, there is significant clearing of that process. The endotracheal tube is 4 cm above the level of robyn. There is an enteric catheter coursing well below the level of the diaphragm and out of the field of view. Cephalization is noted. ASSESSMENT: 1. Acute hypoxic respiratory failure. 2. End-stage renal disease. 3. Non-ST elevation myocardial infarction. 4. Chronic obstructive pulmonary disease with acute exacerbation, likely secondary to volume overload. DISCUSSION AND PLAN: I will give the patient some steroids, nebulized medications, and antibiotics. We will continue to diurese him through time. He is currently on hemodialysis and tolerating this just fine. Cardiology consultation has been placed. Pulmonary/Critical Care will continue to follow along in this location. After hemodialysis, we will put him on a spontaneous breathing trial. If he meets criteria for at least 30 minutes, extubation will be considered. Otherwise, we will try again tomorrow morning. Critical care time: 30 minutes. Job ID: [id number] [facility]
[2019-03-31 19:08] LABS: CKMB 75.2 ng/mL (0-6.6)
[2019-03-31] MEDS ORDERED: Azithromycin 500 MG in Sodium Chloride 0.9% 250 ML 250 ML IVPB SCH (20:00)
[2019-03-31] MEDS ORDERED: Communication Order-Pharmacy FS SCH (20:15)
[2019-03-31] MEDS: Rosuvastatin 10 MG TAB PO SCH (20:18)
[2019-03-31] MEDS: Amoxicillin/Potassium Clav 875 MG TAB PO SCH (20:18)
[2019-03-31] MEDS: Heparin 25,000 units/D5W 500 ML IVPB SCH (20:27)
--- NOTE | 2019-03-31 20:43 | PDOC.EVN ---
Event Note - Event Note Event Note: Troponin elevated at four. Spoke with Dr. Valencia, plan for cath in morning, start heparin drip
--- NOTE | 2019-03-31 21:06 | CON ---
DATE OF CONSULTATION: 03/31/2019 REASON FOR CONSULTATION: Non-STEMI. HISTORY OF PRESENT ILLNESS: Mr. Chandler is a pleasant 73-year-old white gentleman who comes to the hospital for shortness of breath. He has end-stage renal disease and has not missed any single dialysis. He last had dialysis yesterday, he has on Monday, , Monday. He presented to the ER today as he had worsening shortness of breath. His oxygen saturation on EMS arrival was about 70s. He was brought in on BiPAP and eventually had to be intubated to protect his airway. He is undergoing emergent dialysis at the time of my evaluation, but he is intubated, wide awake, no sedation, following commands. He was admitted and worked up. Workup included troponin which was elevated initially at 1.7 and now it is as high as 4.4 with a CK-MB of 75, BNP of 1634, so Cardiology is being consulted for further evaluation and care. On my evaluation, Mr. Chandler is able to nod yes and no. He denies any chest pain, tightness, or pressure. PAST MEDICAL HISTORY: 1. Hypertension. 2. Sleep apnea. 3. End-stage renal disease, on hemodialysis. 4. BPH. 5. Type 2 diabetes. 6. Secondary hyperparathyroidism. 7. Diverticulosis. PAST SURGICAL HISTORY: 1. Left eye strabismus surgery. 2. Tonsillectomy. 3. Right eye surgery. 4. Three toes amputated in the left foot. FAMILY HISTORY: Noncontributory. SOCIAL HISTORY: No alcohol, tobacco, or drugs. REVIEW OF SYSTEMS: Unobtainable as the patient is intubated. OUTPATIENT MEDICATIONS: Include; 1. Hydralazine 50 mg 3 times a day. 2. Tamsulosin. 3. Crestor. 4. Nifedipine 30 mg a day. 5. Losartan 25 mg at bedtime. 6. Insulin 75/25. 7. Calcitriol. 8. Symbicort. 9. Augmentin. 10. Tylenol 3. 11. PhosLo. These are all unconfirmed. ALLERGIES: LATEX GIVES HIVES. PHYSICAL EXAMINATION: VITAL SIGNS: Temperature 97.6, pulse 87, respiratory rate 11, saturating 100% on 40% FiO2, blood pressure 126/69. GENERAL: Awake and alert, intubated. HEENT: Normocephalic, atraumatic. NECK: Supple. LUNGS: Reduced breath sounds and crackles. CARDIOVASCULAR: S1 and S2. No S3 or S4. No murmurs. ABDOMEN: Soft. Positive bowel sounds. EXTREMITIES: No edema. SKIN: Warm and dry. LABORATORY DATA: Reviewed. CBC with a white count of 12, hemoglobin of 12, hematocrit of 37, platelet count of 221. ABG was reviewed. Chemistries were reviewed, unremarkable except for a BUN and creatinine that are high with GFR of 10, glucose was 381, alkaline phosphatase was 119, CK-MB was normal at 3.4 up to 75 and troponin was 1.1 up to 4.4. BNP of 1634. Hep B surface antigen was nonreactive. ASSESSMENT: 1. Gmn-LN-anoqzyinu myocardial infarction. 2. Vxdib-xh-aaucoey diastolic versus systolic heart failure. 3. End-stage renal disease, on hemodialysis. 4. Volume overload. PLAN: 1. Certainly this could have been a cardiac event that tipped him over, and made him go into heart failure. We will plan on doing a heart catheterization tomorrow morning. We spoke about the risks and benefits of procedure and he agrees to proceed. He nodded "no" when I asked him if he had any questions. will sign consent. 2. Further recommendations per results of coronary angiogram in the morning. We will ask that he remain intubated until the procedure is done. Job ID: [id number]
[2019-04-01 03:14] LABS: Hemoglobin 11.8 g/dL (14.0-18.0); Mean Corpuscular HGB CONC 33.7 g/dL (32.0-36.0); Platelet Count 150 thou/uL (130-400); RBC Distribution Width 13.2 % (11.5-14.5); Red Blood Cell (RBC) Count 3.46 mill/uL (4.70-6.10)
[2019-04-01 03:45] LABS: Anion Gap 23 mmol/L (10-20); BUN (Urea Nitrogen) 30 mg/dL (8.4-25.7); Calc. Creatinine Clearance 15 mL/min (70-130); Calcium 8.7 mg/dL (7.8-10.44); Carbon Dioxide 25 mmol/L (23-31); Chloride 97 mmol/L (98-107); Estimated GFR-MDRD 12; Glucose 375 mg/dL (83-110); Sodium 140 mmol/L (136-145)
[2019-04-01 03:55] LABS: PTT Greater than 250.0 SEC (22.9-36.1)
[2019-04-01 07:43] LABS: PTT 133.8 SEC (22.9-36.1)
[2019-04-01] MEDS ORDERED: Lidocaine Viscous Sol 2% 15 ml UD Cup SSP SCH (07:45)
--- NOTE | 2019-04-01 07:57 | RAD ---
Portable frontal chest radiograph: 04/01/2019 COMPARISON: 03/31/2019 HISTORY: CCU patient, respiratory distress, intubated FINDINGS: Stable endotracheal tube and nasogastric tube. No pneumothorax. Stable pulmonary vascular c ongestion with increased linear interstitial density in the perihilar regions and both lung bases. Stable mild bibasilar airspace disease and small bilateral pleural effusions. IMPRESSION: Stable appearance of the chest.
[2019-04-01] MEDS: Aspirin 81 mg Enteric Coated Tablet PO SCH (08:52)
[2019-04-01] MEDS: Amoxicillin/Potassium Clav 875 MG TAB PO SCH (08:52)
[2019-04-01] MEDS: predniSONE 20 MG TAB PO SCH (08:53)
[2019-04-01] MEDS ORDERED: Insulin Glargine 20 UNITS in Pre-Filled Syringe SC SCH ×2 (09:00→12:45)
[2019-04-01] MEDS ORDERED: FLU VACC TS2019-20(65YR UP)/PF 180 MCG/0.5 ML SYRINGE IM ONE (09:00)
[2019-04-01] MEDS ORDERED: Vancomycin 1.5 GRAM/300 ML BAG 1.5 GM in Premix Bag 1 BAG IVPB SCH (10:30)
--- NOTE | 2019-04-01 10:32 | CON ---
DATE OF CONSULTATION: 04/01/2019 REASON FOR CONSULT: Difficult Robbins catheter placement, volume overload, history of end-stage renal disease. HISTORY OF PRESENT ILLNESS: Mr. Chandler is a 73-year-old male previously followed by Dr. Nava, he previously underwent gross hematuria workup by Dr. Nava with local cystoscopy, cytology negative. He was found to have meatal stenosis with glandular hypospadias which was dilated concomitantly. No evidence of obstruction from prostate nor urethral stricture was noted from Dr. Nava's review of records. He is on dialysis with AV fistula TTS, initial visit with me in March 2017 did demonstrate meatal stenosis. I was able to dilate his hypospadias, meatal stenosis which calibrated to about 12-Sammarinese, dilated to Eliz sounds and subsequently passed a 14-Sammarinese catheter without significant issues. He has had no significant postvoid residual. Digital rectal exam demonstrated no gross nodularity. He is currently admitted due to volume overload, currently intubated. Despite dialysis, he went into respiratory distress and he is currently intubated. The nurses on the floor attempted to scan his bladder was 140 mL in the bladder, however, unable to pass the catheter; therefore, urologic consultation was obtained. PAST MEDICAL HISTORY: Diabetes, hypercholesteremia, diverticulitis, Charcot foot, hearing loss, hypertension, asthma, bronchitis, skin cancer, left foot ulcer, sleep apnea, ESRD, subdural hematoma, history of gross hematuria workup negative by Dr. Nava with no significant BPH component, end-stage renal disease. PAST SURGICAL HISTORY: Hemorrhoidectomy, laser surgery of the eye, toe surgery , eye surgery, right arm fistula, toe amputation in July 2015, cystoscopy by Dr. Nava, meatal hypospadias dilated over filiform, no evidence of prostatic obstruction, bladder negative. In office, I did perform a meatal calibration, 12-Sammarinese dilated to 28-Sammarinese catheter was placed with ease. FAMILY HISTORY: Positive for breast cancer, hypertension, CAD. SOCIAL HISTORY: Nonsmoker. Retired, . Denies illicit drug use. ALLERGIES: ALLERGIC TO LATEX. PHYSICAL EXAMINATION: VITAL SIGNS: Stable, 98, 97, 118/76, 86. GENERAL: The patient is intubated. HEART: Regular rate. LUNGS: Clear. ABDOMEN: Soft. : Again demonstrates hypospadias of the glans, meatus stenosis. I did dilate his meatus at the bedside demonstrating meatal stenosis. This was calibrated to 12-Sammarinese with Eliz sounds, subsequently dilated to 28-Sammarinese with ease. A 16-Sammarinese Robbins catheter was able to be placed without significant issues to the level of the bladder with clear urine output. This was adequately secured. EXTREMITIES: No cyanosis, clubbing, or edema. LABORATORY DATA: Pertinent white count 9, hemoglobin 11, platelet 150. Creatinine 4.6. IMPRESSION AND PLAN: Mr. Chandler is a 73-year-old male with history of hypospadias, meatal stenosis, history of gross hematuria workup negative by Dr. Nava. He is currently admitted for fluid overload, PVR 140 which is not of significant clinical significance. I did dilate his meatus at bedside. 16F non latex Robbins catheter passed with ease with no significant postvoid residual. May continue for now for strict I's and O's, when he is medically stable we will discontinue Robbins. Job ID: [id number] [facility]
[2019-04-01] MEDS ORDERED: Iopamidol 370 76% 100 ML VIAL ONE (11:22)
[2019-04-01] MEDS ORDERED: Famotidine/PF 20 mg/2ml Vial SLOW IVP ONE (11:45)
[2019-04-01] MEDS ORDERED: Dextrose 50% Abboject 50 ML SYRINGE SLOW IVP PRN (12:34)
[2019-04-01] MEDS ORDERED: Dextrose 5% in Water 1,000 ML IV PRN (12:34)
--- NOTE | 2019-04-01 12:38 | CON ---
DATE OF CONSULTATION: HISTORY OF PRESENT ILLNESS: Mr. Chandler is a 73-year-old white male with ESRD and admitted for congestive heart failure. He was noted to be in volume overload and was subsequently intubated. He underwent emergent hemodialysis. In addition, he was noted to have an elevated cardiac enzymes. The CHF most likely related to ischemic congestive heart failure. He is a well dialyzed patient. He did report for his regular dialysis the day before admission. This morning, no acute complaints. He still intubated. REVIEW OF SYSTEMS: Not obtainable since the patient is intubated. Based on the history, he did have shortness of breath, but denies any overt chest pain. No syncopal episode. No diarrhea. No constipation. No fever or chills. MEDICATIONS: The patient is currently on: 1. Augmentin 875 mg q.12. 2. Aspirin 81 mg tablet once a day. 3. Heparin drip. 4. DuoNeb q.6. 5. Rosuvastatin 10 mg at bedtime. 6. Prednisone 40 mg q.a.m. PAST MEDICAL HISTORY: 1. ESRD currently on maintenance hemodialysis Monday, , and Monday. 2. Diabetic nephropathy, type 2 diabetes mellitus. 3. Peripheral vascular disease. 4. Hypertension. 5. Hyperlipidemia. 6. BPH. 7. COPD. 8. Diabetic retinopathy. 9. History of colonic polyps. 10. Charcot foot, left ankle. PAST SURGICAL HISTORY: Status post upper and lower GI endoscopy, status post tonsillectomy, status post hemorrhoidectomy, status post cuffed hemodialysis catheter placement, and status post AV fistula placement. 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 He is , one child. Sedentary lifestyle. No history of smoking. No alcohol. Education, associate's degree. Status post blood transfusion. No IV drug abuse. ALLERGIES: NONE. TRAUMA: None. IMMUNIZATIONS: Up-to-date. HOSPITALIZATIONS: Please see past medical history. FAMILY HISTORY: No family history of ESRD. PHYSICAL EXAMINATION: VITAL SIGNS: Blood pressure is noted at 128/73, heart rate 78, and O2 saturation 100%. GENERAL: The patient is awake, can follow commands, intubated on ventilator support. SKIN: Adequate turgor. HEENT: Pinkish conjunctivae. Anicteric sclerae. NECK: No neck mass. No carotid bruits. No JVD. CHEST: No deformities. LUNGS: Decreased breath sounds. Bibasilar crackles. HEART: Normal sinus rhythm. No murmur. No gallops. No rubs. ABDOMEN: Globular, soft, and nontender. No masses. EXTREMITIES: No edema. No deformities. LABORATORY DATA: Laboratories of April 01, 2019; white count 9, hemoglobin 11.8. Sodium 140, potassium 5, chloride 97, carbon dioxide 25, BUN 30, creatinine 4.66, glucose 375, calcium 8.7. On March 31, 2019, troponin I is 23.773. Chest x-ray of April 01, 2019 of the patient shows CHF. ASSESSMENT AND PLAN: 1. End-stage renal disease - stable. The patient underwent emergent hemodialysis due to congestive heart failure in volume overload. About 2 to 3 L of fluid was removed during that time. We will continue his current regular Monday, , and Monday hemodialysis. 2. Congestive heart failure secondary to ischemic congestive heart failure. The patient developed a non-ST elevated myocardial infarction. Cardiology is following. 3. Elevated troponin I - for cardiac catheterization today. Cardiology is following. 4. Overall agree with current management. There is no indication for any emergent hemodialysis this morning. Job ID: [id number]
[2019-04-01] MEDS ORDERED: Lidocaine 1% (PF) 30 ML VIAL ONE (13:00)
[2019-04-01] MEDS ORDERED: Heparin (Artline) 1,000 ML ONE (13:00)
[2019-04-01] MEDS: HumaLOG 300 UNITS/3 ML VIAL SC PRN ×3 (13:09→22:16)
[2019-04-01] MEDS ORDERED: Midazolam HCl 2 mg/2 ml Vial ONE (13:32)
--- NOTE | 2019-04-01 15:22 | PRG ---
DATE OF SERVICE: 04/01/2019 SERVICE: Pulmonary Service. INTERVAL HISTORY: The patient is doing fine from a respiratory standpoint. He is doing well on mechanical ventilation. That being said, he is going down for cardiac catheterization today, and I have been asked to leave him on the ventilator for the time being. Otherwise, there has been no change to his condition. He denies having any shortness of breath or chest discomfort at this point. He is on a little bit of sedation, but he is awake and cooperative. OBJECTIVE: VITAL SIGNS: Afebrile, pulse 79, blood pressure 113/64, respirations 21, and saturation 100% on 27% FiO2 and PEEP of 5. GENERAL: The patient is awake and alert, in no apparent distress. LUNGS: Very good air entry. There is no prolonged expiratory phase or wheezing present. HEART: Normal rate, regular. ABDOMEN: Soft, nontender, and nondistended. Bowel sounds are positive. MUSCULOSKELETAL: No cyanosis or clubbing. There is no pitting in the bilateral lower extremities. NEUROLOGIC: Grossly nonfocal. LABORATORY DATA: WBC 9.0, hemoglobin 11.8, and platelets 150,000. PTT 133. PH 7.42, pCO2 of 37, and pO2 of 80. Creatinine 4.66 and downtrending. Basic metabolic profile is otherwise unremarkable. Troponin has gone up to 23.7. TSH 2.7. Gram-positive cocci are growing in 1/2 blood cultures. IMAGING STUDIES: Chest x-ray demonstrates interval improvement in the pulmonary vascular congestion, and edema. ASSESSMENT: 1. Acute hypoxic respiratory failure. 2. Hbu-MO-reotigyva myocardial infarction. 3. End-stage renal disease. 4. Chronic obstructive pulmonary disease exacerbation secondary to some volume overload. DISCUSSION AND PLAN: The patient is doing really quite well from a respiratory standpoint this morning. That being said, we are going to leave him on mechanical ventilator until after his cardiac catheterization. After this can be performed, we will put him on a spontaneous breathing trial. If he meets criteria, extubation could be considered as early as this afternoon. Critical Care will continue to follow so long as the patient remains inhouse. CRITICAL CARE TIME: 30 minutes. Job ID: [id number]
[2019-04-01] MEDS: Rosuvastatin 10 MG TAB PO SCH (21:20)
--- NOTE | 2019-04-01 22:08 | PDOC.HOSPP ---
- Subjective Encounter Date: 04/01/19 Encounter Time: 15:00 Subjective: The patient is intubated and sedated. Difficult to arouse today upon sternal rub. He had cardiac cath today which showed 3 vessel CAD - Objective Vital Signs & Weight: Vital Signs (12 hours) Temp Pulse Resp BP Pulse Ox 04/01/19 20:00 99 04/01/19 19:54 99.2 F 04/01/19 19:38 10 L 04/01/19 18:55 95 20 100 04/01/19 18:00 9 L 04/01/19 16:00 99.3 F 9 L 04/01/19 14:54 79 113/64 04/01/19 13:00 98.9 F 77 111/64 04/01/19 12:00 10 L 04/01/19 11:09 79 122/67 Weight Admit Weight 167 lb 15.876 oz Weight 158 lb 8.198 oz Most Recent Monitor Data Heart Rate from ECG 83 NIBP 100/63 NIBP BP-Mean 75 Respiration from ECG 0 SpO2 100 I&O: 03/31/19 04/01/19 04/02/19 06:59 06:59 06:59 Intake Total 273 687.9 Output Total 0 42 Balance 273 645.9 Result Diagrams: 04/01/19 03:01 04/01/19 03:01 Additional Labs: Accuchecks 04/01/19 04/01/19 04/01/19 17:52 10:55 05:58 POC Glucose 224 H 313 H 354 H Hospitalist ROS - Medication Medications: Active Medications Generic Name Dose Route Start Last Admin Trade Name Víctor PRN Reason Stop Dose Admin Albuterol/Ipratropium 3 ml 03/31/19 19:00 04/01/19 18:55 Duoneb NEB 3 ml [id number] AFTAB Administration Aspirin 81 mg 04/01/19 09:00 04/01/19 08:52 Ecotrin PO 81 mg DAILY AFTAB Administration Heparin Sodium (Porcine) 0 units 03/31/19 18:30 03/31/19 20:27 Heparin 1,000 Units/Ml (10 Ml) SLOW IVP 4,000 unit ASDIR AFTAB Administration Protocol Heparin Sodium/Dextrose 500 mls @ 0 mls/hr 03/31/19 18:30 03/31/19 20:27 Heparin 25,000 Units/D5w 500 Ml IVPB 500 mls INF AFTAB Administration Protocol Per Protocol Fentanyl Citrate 2,000 mcg/ 100 mls @ 3.81 mls/hr 03/31/19 21:15 04/01/19 08: 51 Sodium Chloride IV 04/30/19 21:15 100 mls INF AFTAB Administration Protocol 1 MCG/KG/HR Insulin Human Lispro 0 units 04/01/19 12:34 04/01/19 18:11 Humalog SC 3 unit .MILD SLIDING SCALE PRN Administration Mild Correctional Scale Prednisone 40 mg 04/01/19 08:00 04/01/19 08:53 Prednisone PO 40 mg QAM-WM AFTAB Administration Rosuvastatin Calcium 10 mg 03/31/19 21:00 04/01/19 21:20 Crestor PO 10 mg HS AFTAB Administration Sodium Chloride 10 ml 04/01/19 21:00 04/01/19 21:20 Flush - Normal Saline IVF 10 ml Q12HR AFTAB Administration - Exam General - other findings: Intubated and sedated Eye: PERRL ENT: normocephalic atraumatic, no oropharyngeal lesions Neck: supple, symmetric, no JVD Heart: RRR, no murmur, no gallops, no rubs Respiratory: CTAB, no wheezes, no rales, no ronchi Gastrointestinal: soft, non-tender, non-distended, normal bowel sounds Extremities: no cyanosis, no clubbing, no edema Skin: normal turgor, no lesions, no rashes Neurological: cranial nerve grossly intact, normal sensation to touch, no weakness, no focal deficits Musculoskeletal: normal tone, normal strength, no muscle wasting Psychiatric: normal affect, normal behavior, A&O x 3, oriented to person, oriented to place, oriented to time Hosp A/P - Plan Chest X ray: mild bibasilar airspace disease and small bilateral pleural effusions THis is a 73 year old male who presented with flash pulmonary edema, requiring intubation. S/p cardiac cath which showed severe 3 vessel CAD Acute hypoxic respiratory failure secondary to NSTEMI with 3 vessel CAD Acute systolic heart failure secondary to NSTEMI - currently still intubated. Cardiac cath showed 80-90% stenosis LAD, 99% stenosis circumflex and 70% stenosis RCA. ECHO shows EF 20-25% - cardiothoracic surgery consulted for CABG - continue heparin drip - repeat chest Xray showing only small bilateral pleural effusions. S/p vancomycin in ER, currently on augmentin day 2 will continue - also on prednisone for 5 days per pulmonary ESRD - nephro on board, got dialyzed yesterday Urine retention BPH - watt catheter unable to be placed due to meatal abnormality. Urology consulted and watt was placed Hyperlipidemia - hold statin for now since intubated Hypertension - hold nifedipine and losartan for now since intubated, resume if extubated - hydralazine prn for SBP > 180 Type II diabetes - insulin sliding scale, glargine 10 units daily increased to 20 for tomorrow. Fingersticks in 300's - fingersticks q6h Code status: full code DVT prophylaxis: heparin drip
[2019-04-02 05:01] LABS: Anion Gap 24 mmol/L (10-20); BUN (Urea Nitrogen) 59 mg/dL (8.4-25.7); Calc. Creatinine Clearance 10 mL/min (70-130); Calcium 8.7 mg/dL (7.8-10.44); Carbon Dioxide 22 mmol/L (23-31); Chloride 98 mmol/L (98-107); Estimated GFR-MDRD 8; Glucose 196 mg/dL (83-110); Potassium 5.1 mmol/L (3.5-5.1); Sodium 139 mmol/L (136-145)
[2019-04-02 05:07] LABS: Hemoglobin 10.9 g/dL (14.0-18.0); Mean Corpuscular HGB CONC 33.1 g/dL (32.0-36.0); Mean Corpuscular Volume 99.7 fL (78.0-98.0); Mean Platelet Volume 9.8 fL (7.4-10.4); Platelet Count 148 thou/uL (130-400); RBC Distribution Width 13.5 % (11.5-14.5); White Blood Cell (WBC) Count 13.7 thou/uL (4.8-10.8)
--- NOTE | 2019-04-02 08:31 | PRG ---
DATE OF SERVICE: 04/02/2019 SUBJECTIVE: The patient intubated. OBJECTIVE: VITAL SIGNS: Stable. minimal Urine output, concentrated yellow, 42 over 24 hours. ABDOMEN: Soft, nontender, nondistended. LABORATORY DATA: White count 13, hemoglobin 12, platelet 148. Creatinine 6.8. PTT is 133. Recent echocardiogram with EF of 20% to 25%. IMPRESSION AND PLAN: 1. Mr. Chandler is a 73-year-old male admitted for respiratory failure, fluid overload. 2. History of end-stage renal disease. 3. anuric end-stage renal failure, on hemodialysis. 4. History of hypospadias with meatal stenosis. His meatus was dilated and catheter was placed yesterday without difficulty. As he has no significant urine output, will discontinue Robbins catheter. Continue present management. Job ID: [id number] MTDD
[2019-04-02] MEDS: Insulin Glargine 20 UNITS in Pre-Filled Syringe SC SCH (08:55)
[2019-04-02] MEDS: Famotidine/PF 20 mg/2ml Vial SLOW IVP SCH (08:57)
[2019-04-02] MEDS: predniSONE 20 MG TAB PO SCH (08:58)
[2019-04-02] MEDS: Amoxicillin/Potassium Clav 500 MG TAB PO SCH ×2 (08:58→13:05)
[2019-04-02] MEDS: Aspirin 81 mg Enteric Coated Tablet PO SCH (08:58)
--- NOTE | 2019-04-02 09:25 | PRG ---
DATE OF SERVICE: 04/02/2019 SERVICE: Renal Medicine. SUBJECTIVE: Mr. Chandler is a 73-year-old white male, who was admitted for congestive heart failure. He was noted to have developed an ST elevated MA. He underwent a cardiac cath, which showed three-vessel disease. Cardiothoracic Surgery has been consulted. This morning, he still remains intubated. He is currently undergoing hemodialysis. We are maxing out fluid removal in anticipation of his extubation. OBJECTIVE: VITAL SIGNS: Blood pressure is 120/71, heart rate 96, respiratory rate 27, pulse ox 96%. GENERAL: Awake, alert, intubated on ventilator support. SKIN: Adequate turgor. HEENT: He has a slightly pale conjunctivae. Anicteric sclerae. NECK: No neck mass. No carotid bruits. No JVD. CHEST: No deformities. LUNGS: Decreased breath sounds. HEART: Normal sinus rhythm. No murmur. No gallops. No rubs. ABDOMEN: Globular, soft, nontender. No masses. EXTREMITIES: No edema. No deformities. MEDICATIONS: Medications of April 02, 2019, was reviewed. LABORATORY DATA: Laboratories of April 02, 2019; white count 13.7, hemoglobin 10. Sodium 139, potassium 5.1, chloride 98, carbon dioxide 22, BUN 59, creatinine 6.83, glucose 196, calcium 8.7. ASSESSMENT AND PLAN: 1. End-stage renal disease, stable. We will continue current hemodialysis regimen of Monday, , Monday, maxing out fluid removal in anticipation of his extubation. 2. Congestive heart failure/ischemic in etiology-status post cardiac cath with three-vessel coronary artery disease. For a planned CABG with this patient. 3. Borderline anemia. Start Epogen 7500 units subcu every week. 4. Agree with current management. Continue supportive care. Job ID: [id number]
[2019-04-02] MEDS: EPOETIN ALFA-EPBX (ESRD) 4,000 UNIT/ML VIAL SC SCH (11:19)
--- NOTE | 2019-04-02 12:28 | CON ---
DATE OF CONSULTATION: 04/01/2019 REQUESTING PHYSICIAN: Dr. Valencia. OTHER CONSULTING PHYSICIANS: Dr. Fink, Dr. Bobby, and Dr. Chilel. CHIEF COMPLAINT: Shortness of breath. HISTORY OF PRESENT ILLNESS: The patient is a 73-year-old man, who is currently intubated for respiratory failure. Although he is awake and follows simple commands and appears to be lucid, the bulk of the history is taken from the chart. The patient is a diabetic dialysis patient who regularly dialyzes on a Monday, , Monday schedule and is compliant with his dialysis schedule. He started having shortness of breath about 3 days prior to presentation that got progressively worse. On Monday, the , it got bad enough that EMS was summoned and upon their arrival, his room air O2 saturations were in the 70s and 80s. Supplemental oxygen was administered and when he was in the emergency room, he was in significant respiratory distress requiring intubation. His chest x-ray was consistent with severe pulmonary edema. His initial troponin was 1.171 and his BNP was 1634.6, but his followup troponin about 4-1/2 hours later was 4.427 with a CK-MB of 75.2. His troponin about 3 hours after that had risen to 23.773. No further troponins were checked. He underwent cardiac catheterization and echocardiography. His echocardiogram suggested an LVEF of around 20% to 25% with a sclerotic aortic valve that opened well and only mild mitral regurgitation. Cardiac catheterization which was done after emergent dialysis showed severe three-vessel coronary disease with severely decreased LV function and LVEDP of 25. He has remained on the ventilator, but hemodynamically stable. PAST MEDICAL HISTORY: In addition to diabetes and end-stage renal disease is significant for hypertension and hyperlipidemia. 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 He has obstructive sleep apnea and history of subdural hematoma. HOME MEDICATIONS: 1. Humalog 75/25 30 to 35 units subcu b.i.d. 2. Symbicort q.12 hours p.r.n. 3. PhosLo 1334 mg t.i.d. with meals. 4. Hydralazine 50 mg at bedtime. 5. Procardia XL 30 mg a day. 6. Losartan 25 mg at bedtime. 7. Crestor 10 mg at bedtime. 8. Flomax 1 at bedtime. 9. Rocaltrol 0.25 mcg a day. 10. Oxiconazole cream topically b.i.d. 11. Augmentin. 12. P.r.n. Tylenol No. 3. ALLERGIES: LATEX THAT CAUSES HIVES. SOCIAL HISTORY: He does not smoke. FAMILY HISTORY: Not obtainable. REVIEW OF SYSTEMS: Not obtainable. PHYSICAL EXAMINATION: GENERAL: He is alert and cooperative. He is intubated. VITAL SIGNS: His heart rate is a sinus rhythm in the 80s. Blood pressure 115/64. He has 100% O2 saturation. T-max has been 99.3. HEENT: He has no xanthelasma. NECK: No JVD. No carotid bruits. RESPIRATORY: He has coarse breath sounds. His endotracheal tube is free of any froth. HEART: He has a regular rate and rhythm without any obvious murmurs or gallops. ABDOMEN: Soft and nontender. EXTREMITIES: He has a good thrill in what appears to represent a right upper arm brachiocephalic AV fistula. He has bounding femoral and posterior tibial pulses bilaterally. He has an easily palpable left dorsalis pedis pulse. His right dorsalis pedis pulse is palpable, though not quite as strong. He appears to have good quality saphenous vein. He has no obvious clubbing, cyanosis, or edema in his lower extremities. He is able to move all extremities to command. LABORATORY DATA: His white count was 12.7, hemoglobin 12.2, hematocrit 37.1, platelets 221,000. His initial chemistries were sodium 141, potassium 4.2, chloride 100, CO2 of 22, glucose 381, BUN 35, creatinine 5.79, calcium 8.7, protein 7.5, albumin 4.1, bilirubin 0.6, alkaline phosphatase 119, AST 34, ALT 19. His troponins were 1.171, 4.427 paired with a CK-MB of 75.2 and 23.773. His BNP was 1634.6. His blood sugars have mostly been running in the 200 to 375 range. His TSH 2.7567. His initial blood gas in the emergency room was a pH of 7.22, pCO2 of 55, PO2 of 64, and a base excess of -6 on CPAP. After intubation, tidal volume of 500 mL, rate of 16, 40% oxygen, PEEP of 5, pressure support of 10. His blood gases 7.42, pCO2 of 37, PO2 of 80, base excess is -0.9. His initial chest x-ray showed florid pulmonary edema with borderline cardiomegaly. He had somewhat improved diaphragmatic excursion after intubation. There was blunting of the costophrenic angles, more pronounced on the right than on the left. The most recent chest x-ray I found in our system prior to this was June 2015. At around that time, he had a carotid ultrasound with normal velocities and ratios and minimal plaque primarily with the worst of it being in the left common carotid. His cardiac catheterization shows severe 3-vessel coronary artery disease. In the right dominant system, he has diffuse irregularity in his right coronary system with about a 70% lesion of the distal right coronary and mild stenosis near the crux and both his posterior descending and posterior lateral branches are small. His left main has no hemodynamically significant disease in it, but in the very proximal LAD, he has about 95% lesion and in the very proximal circumflex is a complex 90% or 95% lesion. There are two tiny OMs prior to bifurcation with both branches compromised, one with about 70% or 80% lesion, the other with about a 60% or 70%. There is significant lesion in the mid LAD beyond two very small diagonals. The LAD wraps around to the apex, but for its entire length appears to be a small vessel on the order of 1 to 1.5 mm. LVEF by my estimation is in the 15% to 20% range, although Dr. Valencia called it 35%. LVEDP was measured at 25. LV pressure was 113/11 and aortic pressure on pullback was 114/55 with a mean of 79. IMPRESSION AND RECOMMENDATIONS: Currently, the patient borders on being a prohibitively high risk. He certainly has quite alarming coronary anatomy. The size and quality of the vessels are such that they are probably bypassable, but are still probably going to be poor quality targets. My bigger concern is his current failure and low EF. Distally on the inferior wall, there is an area of akinesis and anteroapical segment appears severely hypokinetic and much of the dye appears to swirl more than jet. He will almost surely improve as he is unloaded. He may require dialysis several days in a row. He may even benefit from a balloon pump placement. Job ID: [id number]
--- NOTE | 2019-04-02 12:31 | RAD ---
EXAM: CHEST ONE VIEW HISTORY: Pulmonary edema COMPARISON: 04/01/2019 FINDINGS: Endotracheal tube and nasogastric tube remain in place and unchanged in position. The cardiac silhoue tte is magnified by projection. There has been mild improvement in perihilar interstitial densities. There is minimal patchy density again seen in the right infrahilar region. No new area of consolidation is present. There is question of a tiny right pleural effusion. No other interval change. IMPRESSION: 1. Improvement in perihilar interstitial densities, but there is minimal persistent patchy density at the right lung base which may be related to focal area of pneumonitis or atelectasis. Continued follow-up is recommended. 2. Endotracheal tube and nasogastric tube are stable in position.
--- NOTE | 2019-04-02 15:42 | PDOC.HOSPP ---
- Subjective Encounter Date: 04/02/19 Encounter Time: 14:00 Subjective: The patient is s/p extubation. He feels much better in terms of breathing then before he came to the hospital. He states that he never missed a dialysis session, however has history of VANITA and wasn't using his CPAP and thinks that may have caused his pulmonary edema. He denies chest pain currently. He does have a cough from being intubated. - Objective Vital Signs & Weight: Vital Signs (12 hours) Temp Pulse Resp BP Pulse Ox 04/02/19 13:41 95 04/02/19 13:18 80 113/63 04/02/19 12:00 97.9 F 18 04/02/19 10:30 85 110/65 04/02/19 10:00 18 04/02/19 08:00 99 F 10 L 100 04/02/19 07:29 96 117/71 04/02/19 06:00 11 L 04/02/19 04:00 98.9 F 10 L Weight Admit Weight 167 lb 15.876 oz Weight 166 lb 0.129 oz Most Recent Monitor Data Heart Rate from ECG 105 NIBP 107/64 NIBP BP-Mean 78 Respiration from ECG 32 SpO2 97 I&O: 04/01/19 04/02/19 04/03/19 06:59 06:59 06:59 Intake Total 273 923.9 100 Output Total 0 42 75 Balance 273 881.9 25 Result Diagrams: 04/02/19 04:39 04/02/19 04:39 Additional Labs: Accuchecks 04/02/19 04/01/19 04/01/19 09:58 22:15 17:52 POC Glucose 130 H 202 H 224 H Hospitalist ROS - Review of Systems Constitutional: denies: fever, chills Respiratory: reports: cough, shortness of breath - Medication Medications: Active Medications Generic Name Dose Route Start Last Admin Trade Name Freq PRN Reason Stop Dose Admin Albuterol/Ipratropium 3 ml 03/31/19 19:00 04/02/19 13:17 Duoneb NEB 3 ml [id number] AFTAB Administration Amoxicillin/Clavulanate Potassium 500 mg 04/02/19 09:00 04/02/19 08:58 Augmentin PO 04/05/19 10:00 500 mg DAILY AFTAB Administration Amoxicillin/Clavulanate Potassium 500 mg 04/02/19 14:00 04/02/19 13:05 Augmentin PO 500 mg TuThSa@1400 AFTAB Administration Aspirin 81 mg 04/01/19 09:00 04/02/19 08:58 Ecotrin PO 81 mg DAILY AFTAB Administration Epoetin Nadeem-epbx 7,500 unit 04/02/19 09:15 04/02/19 11:19 Retacrit SC 7,500 unit Q7D AFTAB Administration Famotidine 20 mg 04/02/19 09:00 04/02/19 08:57 Pepcid SLOW IVP 20 mg DAILY AFTAB Administration Heparin Sodium (Porcine) 0 units 03/31/19 18:30 03/31/19 20:27 Heparin 1,000 Units/Ml (10 Ml) SLOW IVP 4,000 unit ASDIR AFTAB Administration Protocol Heparin Sodium/Dextrose 500 mls @ 0 mls/hr 03/31/19 18:30 03/31/19 20:27 Heparin 25,000 Units/D5w 500 Ml IVPB 500 mls INF AFTAB Administration Protocol Per Protocol Fentanyl Citrate 2,000 mcg/ 100 mls @ 3.81 mls/hr 03/31/19 21:15 04/01/19 08: 51 Sodium Chloride IV 04/30/19 21:15 100 mls INF FATAB Administration Protocol 1 MCG/KG/HR Insulin Glargine 20 units/ 0.2 mls @ 0 mls/hr 04/02/19 09:00 04/02/19 08:55 Miscellaneous Medication SC 0.2 mls QAM AFTAB Administration Insulin Human Lispro 0 units 04/01/19 12:34 04/01/19 22:16 Humalog SC 3 unit .MILD SLIDING SCALE PRN Administration Mild Correctional Scale Prednisone 40 mg 04/01/19 08:00 04/02/19 08:58 Prednisone PO 40 mg QAM-WM AFTAB Administration Rosuvastatin Calcium 10 mg 03/31/19 21:00 04/01/19 21:20 Crestor PO 10 mg HS AFTAB Administration Sodium Chloride 10 ml 04/01/19 21:00 04/02/19 14:39 Flush - Normal Saline IVF Not Given Q12HR AFTAB Sodium Chloride 10 ml 04/01/19 18:57 04/02/19 08:57 Flush - Normal Saline IVF 10 ml PRN PRN Administration Saline Flush - Exam General Appearance: NAD, awake alert Eye: PERRL, anicteric sclera ENT: normocephalic atraumatic, no oropharyngeal lesions Neck: supple, symmetric, no JVD, no thyromegaly Heart: RRR, no murmur, no gallops, no rubs Respiratory: CTAB, no wheezes, no rales, no tachypnea Gastrointestinal: soft, non-tender, non-distended, normal bowel sounds Extremities: no cyanosis, no clubbing, no edema Skin: normal turgor, no lesions, no rashes Neurological: cranial nerve grossly intact, normal sensation to touch, no focal deficits, no new deficit Musculoskeletal: normal tone, normal strength, no muscle wasting Psychiatric: normal affect, normal behavior Hosp A/P - Plan Chest X ray: mild bibasilar airspace disease and small bilateral pleural effusions Chest Xray 04/02: patchy density at the right lung base - possible pneumonitis or atelectasis THis is a 73 year old male who presented with flash pulmonary edema, requiring intubation. S/p cardiac cath which showed severe 3 vessel CAD Acute hypoxic respiratory failure secondary to NSTEMI with 3 vessel CAD Acute systolic heart failure secondary to NSTEMI - currently still intubated. Cardiac cath showed 80-90% stenosis LAD, 99% stenosis circumflex and 70% stenosis RCA. ECHO shows EF 20-25% - cardiothoracic surgery consulted for CABG, currently stating he is high risk and may need dialysis for several days. Possible consideration of balloon pump - continue heparin drip - chest Xray today showing persistent RL base density. Continue augmentin day 3 , prednisone for 5 days ESRD - nephro on board, got dialyzed yesterday Urine retention BPH - watt catheter removed today Hyperlipidemia - resume statin Hypertension - BP soft, hold nifedipine and losartan for now Type II diabetes - insulin sliding scale, glargine 20 units qam, fingerstick 130 this morning, will monitor Code status: full code DVT prophylaxis: heparin drip
[2019-04-02] MEDS: HumaLOG 300 UNITS/3 ML VIAL SC PRN (16:19)
[2019-04-02 18:50] LABS: Hemoglobin 12.3 g/dL (14.0-18.0); Platelet Count 135 thou/uL (130-400)
--- NOTE | 2019-04-02 20:05 | PDOC.CPN ---
- Subjective Date: 04/02/19 Time: 20:03 Interval history: He was extubated earlier today. No chest pian. Breathing improving. Had 2.4 L of fluid taken out from HD today. - Review of Systems General: denies: fever/chills, weight/appetite/sleep changes, night sweats, fatigue Respiratory: denies: cough, congestion, shortness of breath, exercise intolerance Cardiovascular: denies: chest pain, palpitation, edema, paroxysmal nocturnal dyspnea, orthopnea Gastrointestinal: denies: nausea, vomiting, diarrhea, constipation, abd pain, GI bleeding Musculoskeletal: denies: pain, tenderness, stiffness, swelling, arthritis/ arthralgias Neurological: denies: numbness, syncope, seizure, weakness - Objective Allergies/Adverse Reactions: Allergies Allergy/AdvReac Type Severity Reaction Status Date / Time latex Allergy Hives Verified 03/31/19 22:06 Visit Medications: Current Medications Albuterol/Ipratropium (Duoneb) 3 ml NEB [id number] [facility] Last Admin: 04/02/19 19:07 Dose: 3 ml Amoxicillin/Clavulanate Potassium (Augmentin) 500 mg PO DAILY [facility] Stop: 04/05/19 10:00 Last Admin: 04/02/19 08:58 Dose: 500 mg Amoxicillin/Clavulanate Potassium (Augmentin) 500 mg PO TuThSa@1400 [facility] Last Admin: 04/02/19 13:05 Dose: 500 mg Aspirin (Ecotrin) 81 mg PO DAILY [facility] Last Admin: 04/02/19 08:58 Dose: 81 mg Dextrose/Water (Dextrose 50%) 25 gm SLOW IVP PRN PRN PRN Reason: Hypoglycemia Epoetin Nadeem-epbx (Retacrit) 7,500 unit SC Q7D [facility] Last Admin: 04/02/19 11:19 Dose: 7,500 unit Famotidine (Pepcid) 20 mg SLOW IVP DAILY [facility] Last Admin: 04/02/19 08:57 Dose: 20 mg Glucagon (Glucagon) 1 mg IM PRN PRN PRN Reason: Hypoglycemia Heparin Sodium (Porcine) (Heparin 1,000 Units/Ml (10 Ml)) 0 units SLOW IVP ASDIR [facility]; Protocol Last Admin: 03/31/19 20:27 Dose: 4,000 unit Hydralazine HCl (Apresoline) 10 mg SLOW IVP Q4H PRN PRN Reason: Persistent BP Elevations Heparin Sodium/Dextrose (Heparin 25,000 Units/D5w 500 Ml) 500 mls @ 0 mls/hr IVPB INF [facility]; Protocol Last Admin: 03/31/19 20:27 Dose: 500 mls Dextrose/Water (D5w) 1,000 mls @ 0 mls/hr IV .Q0M PRN PRN Reason: Hypoglycemia Insulin Glargine 20 units/ (Miscellaneous Medication) 0.2 mls @ 0 mls/hr SC QAM [facility] Last Admin: 04/02/19 08:55 Dose: 0.2 mls Insulin Human Lispro (Humalog) 0 units SC .MILD SLIDING SCALE PRN PRN Reason: Mild Correctional Scale Last Admin: 04/02/19 16:19 Dose: 2 unit Mineral Oil/White Petrolatum (Systane Nighttime Eye Ointment) 0 gm EA EYE PRN PRN PRN Reason: Dry Eyes Prednisone (Prednisone) 40 mg PO QAM-[facility] Last Admin: 04/02/19 08:58 Dose: 40 mg Rosuvastatin Calcium (Crestor) 10 mg PO HS [facility] Last Admin: 04/01/19 21:20 Dose: 10 mg Sodium Chloride (Flush - Normal Saline) 10 ml IVF Q12HR [facility] Last Admin: 04/02/19 14:39 Dose: Not Given Sodium Chloride (Flush - Normal Saline) 10 ml IVF PRN PRN PRN Reason: Saline Flush Last Admin: 04/02/19 08:57 Dose: 10 ml Vital Signs & Weight: Vital Signs Temp Pulse Resp BP Pulse Ox 04/02/19 19:07 104 H 20 95 04/02/19 16:00 98.6 F 99 04/02/19 13:41 95 04/02/19 13:18 80 113/63 04/02/19 12:00 97.9 F 18 04/02/19 10:30 85 110/65 04/02/19 10:00 18 Admit Weight 167 lb 15.876 oz Weight 166 lb 0.129 oz - Physical Exam General: alert & oriented x3 HEENT: mucus membranes moist Neck: supple neck Cardiac: regular rate and rhythm Lungs: normal breath sounds Neuro: grossly intact Abdomen: active bowel sounds Extremities: no edema Skin: clear Musculoskeletal: no pain - Labs Result Diagrams: 04/02/19 18:44 04/02/19 04:39 Troponin/CKMB CK-MB (CK-2) 75.2 ng/mL (0-6.6) H* 03/31/19 18:07 Troponin I 23.773 ng/mL (< 0.028) H* 03/31/19 20:57 - Telemetry Sinus rhythms and dysrhythmias: sinus rhythm - Assessment/Plan Assessment/Plan: 1. NSTEMI 2. ESRD on HD 3. Acute on chronic systolic heart failure 4. Multivessel CAD 5. Ischemic CM PLAN: - Continue ASA/Statin. - Continue Heparin gtt. - CABG once more stable.
[2019-04-02] MEDS: Atorvastatin Calcium 40 MG TAB PO SCH (22:01)
[2019-04-02] MEDS: Rosuvastatin 10 MG TAB PO SCH (22:01)
[2019-04-03 06:28] LABS: Hemoglobin 10.9 g/dL (14.0-18.0); Mean Corpuscular HGB CONC 32.8 g/dL (32.0-36.0); Mean Corpuscular Hemoglobin 32.9 pg (27.0-31.0); Platelet Count 142 thou/uL (130-400); RBC Distribution Width 13.3 % (11.5-14.5); Red Blood Cell (RBC) Count 3.32 mill/uL (4.70-6.10); White Blood Cell (WBC) Count 8.9 thou/uL (4.8-10.8)
[2019-04-03 06:49] LABS: Anion Gap 20 mmol/L (10-20); BUN (Urea Nitrogen) 53 mg/dL (8.4-25.7); Calc. Creatinine Clearance 11 mL/min (70-130); Calcium 8.6 mg/dL (7.8-10.44); Carbon Dioxide 25 mmol/L (23-31); Chloride 98 mmol/L (98-107); Estimated GFR-MDRD 9; Glucose 145 mg/dL (83-110); Potassium 4.6 mmol/L (3.5-5.1); Sodium 138 mmol/L (136-145)
--- NOTE | 2019-04-03 08:56 | PRG ---
DATE OF SERVICE: 04/03/2019 SUBJECTIVE: The patient is alert. OBJECTIVE: VITAL SIGNS: Stable. ABDOMEN: Soft. No rigidity. No rebound. : As previous, coronal hypospadias, status post meatal dilatation. Meatal caliber is about 14 to 16-Serbian. No blood at the meatus site. LABORATORY DATA: White count 8, hemoglobin 10, platelet 142, and creatinine 0.8. Chart reviewed, recent echocardiogram demonstrates severely depressed EF of 20% to 25%. IMPRESSION AND PLAN: 1. Mr. Chandler is a 73-year-old male admitted for respiratory failure, fluid overload. 2. End-stage renal disease. 3. Gcj-RF-hamjaeblo myocardial infarction. 4. Severe congestive heart failure. 5. Anuric, end-stage renal failure, on hemodialysis. 6. History of hypospadias with meatal stenosis. I did dilate his meatus yesterday as there was concern regarding PVR, no significant PVR noted; pt anuric His catheter removed . will sign off, he has an elective followup with me in the next few months. Call if any questions or concerns. Pt being optimize for possible bypass Job ID: [id number] [facility]
[2019-04-03] MEDS: Amoxicillin/Potassium Clav 500 MG TAB PO SCH (09:06)
[2019-04-03] MEDS: Aspirin 81 mg Enteric Coated Tablet PO SCH (09:06)
[2019-04-03] MEDS: Famotidine/PF 20 mg/2ml Vial SLOW IVP SCH (09:06)
[2019-04-03] MEDS: predniSONE 20 MG TAB PO SCH (09:06)
[2019-04-03] MEDS: Insulin Glargine 20 UNITS in Pre-Filled Syringe SC SCH (09:06)
--- NOTE | 2019-04-03 09:26 | PRG ---
DATE OF SERVICE: 04/02/2019 SERVICE: Pulmonary Medicine. INTERVAL HISTORY: The patient is doing quite well from respiratory standpoint. He did well with cardiac catheterization yesterday. That being said, he did not get out until pretty late. As such, he was left on the mechanical ventilator for an additional day. Currently, he is breathing comfortably. There were no events overnight. PHYSICAL EXAMINATION: VITAL SIGNS: Afebrile, pulse 95, blood pressure 105/70, respirations 16, and saturation 100% on 21% FiO2 and PEEP of 5. GENERAL: The patient is awake and alert, in no apparent distress. LUNGS: Decent air entry. There is no prolonged expiratory phase. Dependent crackles are noted. No rhonchi. HEART: Normal rate. Regular. ABDOMEN: Soft, nontender, and nondistended. Bowel sounds are positive. MUSCULOSKELETAL: No cyanosis or clubbing. No pitting in the bilateral lower extremities. NEUROLOGIC: Grossly nonfocal. LABORATORY DATA: Hemoglobin 12.3 and platelets 135,000. Creatinine 6.83 and BUN 59. Basic metabolic profile is otherwise unremarkable. Blood cultures are negative. One blood culture is growing alpha hemolytic Streptococcus. IMAGIN. Echocardiogram demonstrates 20% to 25% ejection fraction and 2/3 diastolic dysfunction. Elevated right ventricular systolic pressures are noted. 2. Chest x-ray demonstrates perihilar densities have improved. Right lung base has a focal area of atelectasis or pneumonitis. ASSESSMENT: 1. Acute hypoxic respiratory failure, resolving. 2. Non-ST elevation myocardial infarction. 3. End-stage renal disease. 4. Chronic obstructive pulmonary disease with acute exacerbation secondary to volume overload. 5. Acute on chronic systolic and diastolic heart failure. DISCUSSION AND PLAN: The patient is doing okay on mechanical ventilator. At the end of his spontaneous breathing trial, if he meets criteria, extubation will be considered. Pulmonary/Critical Care will continue to follow along while the patient remains inhouse. Critical care time: 30 minutes. Job ID: [id number] MTDD
--- NOTE | 2019-04-03 09:27 | PRG ---
DATE OF SERVICE: 04/03/2019 SUBJECTIVE: Mr. Chandler is a 73-year-old white male, who was admitted for congestive heart failure, status post MS and history of ESRD. He is undergoing maintenance hemodialysis. He underwent dialysis yesterday without any problem. He underwent also cardiac cath with findings of 3-vessel disease. Cardiothoracic surgery is currently evaluating the patient for a planned CABG. This morning, he is noted to be extubated and feeling better. Shortness of breath is improved. OBJECTIVE: VITAL SIGNS: Blood pressure 105/70, heart rate 91, respiratory rate 10, and pulse oximetry 99%. GENERAL: The patient is awake, alert, supine, comfortable, not in distress. SKIN: Adequate turgor. HEENT: Pinkish conjunctivae. Anicteric sclerae. NECK: No neck mass. No carotid bruits. No JVD. CHEST: No deformities. LUNGS: Clear breath sounds. HEART: Normal sinus rhythm. No murmurs, gallops, or rubs. ABDOMEN: Globular, soft, nontender. No masses. EXTREMITIES: No edema. MEDICATIONS: Of April 03, 2019, reviewed. LABORATORY DATA: Of April 03, 2019; white count 8.9, hemoglobin 10.9, sodium 138, potassium 4.6, chloride 98, carbon dioxide 25, BUN 53, creatinine 5.99, glucose 145, and calcium 8.6. ASSESSMENT AND PLAN: 1. End stage renal disease, stable. Continue current Monday, , and Monday hemodialysis. Attempting to max out fluid removal as tolerated by the patient. There is no indication for any acute dialytic intervention today. 2. Anemia. We have started him on his maintenance Epogen. Continue supportive care. P.r.n. blood transfusion. 3. Status post myocardial infarction - status post cardiac cath with findings of 3-vessel disease. Plan is for the patient to undergo coronary artery bypass graft. Cardiothoracic surgery is following. 4. Congestive heart failure secondary to cardiac ischemia, much improved. He is now extubated. Maxing out fluid removal. 5. Agree with current management. Job ID: [id number]
--- NOTE | 2019-04-03 12:48 | PRG ---
DATE OF SERVICE: 04/03/2019 SERVICE: Pulmonary Medicine. INTERVAL HISTORY: The patient is doing great from respiratory standpoint. He denies having any chest discomfort, nausea, or vomiting. He has not been out of bed yet. He has not been allowed to eat any food because whenever he drinks some water, he coughs and sputters to the point where he is clearly having some degree of penetration and/or aspiration. Speech Pathology consultation is currently pending. PHYSICAL EXAMINATION: VITAL SIGNS: Afebrile, pulse 94, blood pressure 108/66, respirations 18, and saturation 100% on 2 L nasal cannula. GENERAL: The patient is awake and alert, in no apparent distress. LUNGS: Decent air entry. Rhonchi and crackles are both present. There is a slightly prolonged expiratory phase, but I do not appreciate any wheezing. HEART: Normal rate, regular. ABDOMEN: Soft, nontender, nondistended. Bowel sounds are positive. MUSCULOSKELETAL: No cyanosis or clubbing. No pitting in the bilateral lower extremities. NEUROLOGIC: Grossly nonfocal. LABORATORY DATA: WBC 8.9, hemoglobin 10.9, and platelets 142,000. Creatinine 0.599. Basic metabolic profile is otherwise unremarkable. Blood cultures x3 are negative. Strep is in 1 out of 4 blood cultures. ASSESSMENT: 1. Acute hypoxic respiratory failure, resolving. 2. Mjq-BZ-kzdmrugbj myocardial infarction. 3. End-stage renal disease. 4. Chronic obstructive pulmonary disease with acute exacerbation secondary to volume issues. 5. Acute on chronic systolic and diastolic heart failure. DISCUSSION AND PLAN: We will continue to diurese the patient down to euvolemia. Pulmonary/Critical Care will continue to follow along while the patient remains in the ICU. From my perspective, he is likely stable for transition to the floor. We will need to focus on mobilization efforts throughout the day. If I am not mistaken, he may be considered for revascularization procedure as early as Monday. Job ID: [id number]
--- NOTE | 2019-04-03 15:21 | PDOC.HOSPP ---
- Subjective Encounter Date: 04/03/19 Encounter Time: 15:20 Subjective: The patient feels better - Objective Vital Signs & Weight: Vital Signs (12 hours) Temp Pulse Pulse Pulse Resp BP BP 04/03/19 13:10 97 22 H 04/03/19 12:00 98.4 F 98 99 120/61 107/78 04/03/19 08:00 04/03/19 07:08 95 16 04/03/19 07:00 98.2 F 04/03/19 04:00 98.8 F Pulse Ox Pulse Ox Pulse Ox 04/03/19 13:10 96 04/03/19 12:00 100 99 04/03/19 08:00 100 04/03/19 07:08 100 04/03/19 07:00 04/03/19 04:00 Weight Admit Weight 167 lb 15.876 oz Weight 157 lb 6.561 oz Most Recent Monitor Data Heart Rate from ECG 99 NIBP 115/72 NIBP BP-Mean 86 Respiration from ECG 23 SpO2 100 I&O: 04/02/19 04/03/19 04/04/19 06:59 06:59 06:59 Intake Total 923.9 655 264 Output Total 42 75 0 Balance 881.9 580 264 Result Diagrams: 04/03/19 06:18 04/03/19 06:18 Additional Labs: Accuchecks 04/03/19 04/03/19 04/02/19 10:51 04:36 21:56 POC Glucose 149 H 150 H 123 H 04/02/19 16:15 POC Glucose 186 H Hospitalist ROS - Review of Systems Constitutional: denies: fever, chills - Medication Medications: Active Medications Generic Name Dose Route Start Last Admin Trade Name Freq PRN Reason Stop Dose Admin Albuterol/Ipratropium 3 ml 03/31/19 19:00 04/03/19 13:10 Duoneb NEB 3 ml [id number] AFTAB Administration Amoxicillin/Clavulanate Potassium 500 mg 04/02/19 09:00 04/03/19 09:06 Augmentin PO 04/05/19 10:00 Not Given DAILY AFTAB Amoxicillin/Clavulanate Potassium 500 mg 04/02/19 14:00 04/02/19 13:05 Augmentin PO 500 mg TuThSa@1400 AFTAB Administration Aspirin 81 mg 04/01/19 09:00 04/03/19 09:06 Ecotrin PO Not Given DAILY AFATB Atorvastatin Calcium 40 mg 04/02/19 21:00 04/02/19 22:01 Lipitor PO Not Given HS AFTAB Epoetin Nadeem-epbx 7,500 unit 04/02/19 09:15 04/02/19 11:19 Retacrit SC 7,500 unit Q7D AFTAB Administration Famotidine 20 mg 04/02/19 09:00 04/03/19 09:06 Pepcid SLOW IVP 20 mg DAILY AFTAB Administration Heparin Sodium (Porcine) 0 units 03/31/19 18:30 03/31/19 20:27 Heparin 1,000 Units/Ml (10 Ml) SLOW IVP 4,000 unit ASDIR AFTAB Administration Protocol Heparin Sodium/Dextrose 500 mls @ 0 mls/hr 03/31/19 18:30 03/31/19 20:27 Heparin 25,000 Units/D5w 500 Ml IVPB 500 mls INF AFTAB Administration Protocol Per Protocol Insulin Glargine 20 units/ 0.2 mls @ 0 mls/hr 04/02/19 09:00 04/03/19 09:06 Miscellaneous Medication SC 0.2 mls QAM AFTAB Administration Insulin Human Lispro 0 units 04/01/19 12:34 04/02/19 16:19 Humalog SC 2 unit .MILD SLIDING SCALE PRN Administration Mild Correctional Scale Prednisone 40 mg 04/01/19 08:00 04/03/19 09:06 Prednisone PO 04/05/19 08:01 Not Given QAM-WM AFTAB Rosuvastatin Calcium 10 mg 03/31/19 21:00 04/02/19 22:01 Crestor PO Not Given HS AFTAB Sodium Chloride 10 ml 04/01/19 21:00 04/03/19 13:21 Flush - Normal Saline IVF 10 ml Q12HR AFTAB Administration Sodium Chloride 10 ml 04/01/19 18:57 04/02/19 08:57 Flush - Normal Saline IVF 10 ml PRN PRN Administration Saline Flush - Exam General Appearance: NAD, awake alert General - other findings: on nasal cannula Eye: PERRL, anicteric sclera ENT: normocephalic atraumatic, no oropharyngeal lesions Neck: supple, symmetric, no JVD, no thyromegaly Heart: RRR, no murmur, no gallops, no rubs Respiratory: CTAB, no wheezes, no rales, no ronchi Gastrointestinal: soft, non-tender, non-distended, normal bowel sounds Extremities: no cyanosis, no edema Skin: normal turgor, no lesions, no rashes Neurological: cranial nerve grossly intact, normal sensation to touch, no focal deficits, no new deficit Musculoskeletal: normal tone, normal strength, no muscle wasting Hosp A/P - Plan Chest X ray: mild bibasilar airspace disease and small bilateral pleural effusions Chest Xray 04/02: patchy density at the right lung base - possible pneumonitis or atelectasis THis is a 73 year old male who presented with flash pulmonary edema, requiring intubation. S/p cardiac cath which showed severe 3 vessel CAD Acute hypoxic respiratory failure secondary to NSTEMI with 3 vessel CAD Acute systolic heart failure secondary to NSTEMI - extubated currently. Cardiac cath showed 80-90% stenosis LAD, 99% stenosis circumflex and 70% stenosis RCA. ECHO shows EF 20-25% - cardiothoracic surgery consulted for CABG, currently stating he is high risk and may need dialysis for several days. They may not do this next week - continue heparin drip - chest Xray today showing persistent RL base density. Continue augmentin day 4 , prednisone for 5 days ESRD - nephro on board, needs dialysis Monday, and Monday Urine retention BPH - watt catheter removed -urology signed off Hyperlipidemia - continue statin Hypertension - BP soft, hold nifedipine and losartan for now Type II diabetes - insulin sliding scale, glargine 20 units qam, fingerstick 130 this morning, will monitor Code status: full code DVT prophylaxis: heparin drip
[2019-04-03] MEDS: Amiodarone 450 MG, Admixture Fee 1 EACH in Dextrose 5% in Water 250 ML IVPB SCH ×2 (17:17→23:46)
--- NOTE | 2019-04-03 18:36 | PDOC.CPN ---
- Subjective Date: 04/03/19 Time: 18:33 Interval history: He developed afib earlier this afternoon. HR's in the 120's to 150's. No chest pain, he does not feel his afib. - Review of Systems General: denies: fever/chills, weight/appetite/sleep changes, night sweats, fatigue Respiratory: denies: cough, congestion, shortness of breath, exercise intolerance Cardiovascular: denies: chest pain, palpitation, edema, paroxysmal nocturnal dyspnea, orthopnea Gastrointestinal: denies: nausea, vomiting, diarrhea, constipation, abd pain, GI bleeding Musculoskeletal: denies: pain, tenderness, stiffness, swelling, arthritis/ arthralgias Neurological: denies: numbness, syncope, seizure, weakness - Objective Allergies/Adverse Reactions: Allergies Allergy/AdvReac Type Severity Reaction Status Date / Time latex Allergy Hives Verified 03/31/19 22:06 Visit Medications: Current Medications Albuterol/Ipratropium (Duoneb) 3 ml NEB [id number] [facility] Last Admin: 04/03/19 13:10 Dose: 3 ml Amoxicillin/Clavulanate Potassium (Augmentin) 500 mg PO DAILY [facility] Stop: 04/05/19 10:00 Last Admin: 04/03/19 09:06 Dose: Not Given Amoxicillin/Clavulanate Potassium (Augmentin) 500 mg PO TuThSa@1400 [facility] Last Admin: 04/02/19 13:05 Dose: 500 mg Aspirin (Ecotrin) 81 mg PO DAILY [facility] Last Admin: 04/03/19 09:06 Dose: Not Given Atorvastatin Calcium (Lipitor) 40 mg PO HS [facility] Last Admin: 04/02/19 22:01 Dose: Not Given Dextrose/Water (Dextrose 50%) 25 gm SLOW IVP PRN PRN PRN Reason: Hypoglycemia Epoetin Nadeem-epbx (Retacrit) 7,500 unit SC Q7D [facility] Last Admin: 04/02/19 11:19 Dose: 7,500 unit Famotidine (Pepcid) 20 mg SLOW IVP DAILY [facility] Last Admin: 04/03/19 09:06 Dose: 20 mg Glucagon (Glucagon) 1 mg IM PRN PRN PRN Reason: Hypoglycemia Hydralazine HCl (Apresoline) 10 mg SLOW IVP Q4H PRN PRN Reason: Persistent BP Elevations Heparin Sodium/Dextrose (Heparin 25,000 Units/D5w 500 Ml) 500 mls @ 0 mls/hr IVPB INF AFTAB; Protocol Last Admin: 03/31/19 20:27 Dose: 500 mls Dextrose/Water (D5w) 1,000 mls @ 0 mls/hr IV .Q0M PRN PRN Reason: Hypoglycemia Insulin Glargine 20 units/ (Miscellaneous Medication) 0.2 mls @ 0 mls/hr SC QAM [facility] Last Admin: 04/03/19 09:06 Dose: 0.2 mls Amiodarone HCl 450 mg/Miscellaneous Medication 1 each/ Dextrose/Water 259 mls @ 0 mls/hr IVPB INF AFTAB; Protocol Last Admin: 04/03/19 17:17 Dose: 259 mls Insulin Human Lispro (Humalog) 0 units SC .MILD SLIDING SCALE PRN PRN Reason: Mild Correctional Scale Last Admin: 04/02/19 16:19 Dose: 2 unit Mineral Oil/White Petrolatum (Systane Nighttime Eye Ointment) 0 gm EA EYE PRN PRN PRN Reason: Dry Eyes Prednisone (Prednisone) 40 mg PO QAM-[facility] Stop: 04/05/19 08:01 Last Admin: 04/03/19 09:06 Dose: Not Given Rosuvastatin Calcium (Crestor) 10 mg PO HS [facility] Last Admin: 04/02/19 22:01 Dose: Not Given Sodium Chloride (Flush - Normal Saline) 10 ml IVF Q12HR AFTAB Last Admin: 04/03/19 13:21 Dose: 10 ml Sodium Chloride (Flush - Normal Saline) 10 ml IVF PRN PRN PRN Reason: Saline Flush Last Admin: 04/02/19 08:57 Dose: 10 ml Vital Signs & Weight: Vital Signs Temp Pulse Pulse Pulse Resp BP BP 04/03/19 13:10 97 22 H 04/03/19 12:00 98.4 F 98 99 120/61 107/78 04/03/19 08:00 04/03/19 07:08 95 16 04/03/19 07:00 98.2 F Pulse Ox Pulse Ox Pulse Ox 04/03/19 13:10 96 04/03/19 12:00 100 99 04/03/19 08:00 100 04/03/19 07:08 100 04/03/19 07:00 Admit Weight 167 lb 15.876 oz Weight 157 lb 6.561 oz - Physical Exam General: alert & oriented x3, no apparent distress HEENT: mucus membranes moist Neck: supple neck Cardiac: no murmur, irregularly regular Lungs: normal breath sounds Neuro: grossly intact Abdomen: active bowel sounds Extremities: no edema Skin: clear Musculoskeletal: no pain - Labs Result Diagrams: 04/03/19 06:18 04/03/19 06:18 Troponin/CKMB CK-MB (CK-2) 75.2 ng/mL (0-6.6) H* 03/31/19 18:07 Troponin I 23.773 ng/mL (< 0.028) H* 03/31/19 20:57 - Telemetry Sinus rhythms and dysrhythmias: sinus rhythm - Assessment/Plan Assessment/Plan: 1. NSTEMI 2. ESRD on HD 3. Acute on chronic systolic heart failure 4. Multivessel CAD 5. Ischemic CM 6. Afib RVR. PLAN: - Continue ASA/Statin. - Continue Heparin gtt. - Amiodarone drip. - Will ask Dr. Lema to do SRINIVAS ligation during surgery. - CABG and SRINIVAS ligation once more stable. - Had a long conversation with and daughter about his situation. He has been slowing down quite a bit, he was able to walk to his mailbox but he would get very SOB. - Critical Care Time Critical care time (mins): 30
--- NOTE | 2019-04-03 18:43 | EKG ---
Test Reason : Blood Pressure : / mmHG Vent. Rate : 073 BPM Atrial Rate : 073 BPM P-R Int : 180 ms QRS Dur : 110 ms QT Int : 450 ms P-R-T Axes : 064 023 071 degrees QTc Int : 495 ms Sinus rhythm with frequent Premature ventricular complexes ST depression, consider subendocardial injury Prolonged QT Abnormal ECG When compared with ECG of 19-DEC-2015 20:50, Premature ventricular complexes are now Present ST no longer elevated in Inferior leads ST now depressed in Anterolateral leads Nonspecific T wave abnormality now evident in Anterior leads Confirmed by DR. Javier JUAREZ ([id number]) on 04/03/2019 6:43:07 PM Referred By: LETHA Confirmed By:DR. Javier JUAREZ
[2019-04-03 19:58] LABS: Hemoglobin 11.1 g/dL (14.0-18.0); Platelet Count 143 thou/uL (130-400)
[2019-04-03] MEDS: Atorvastatin Calcium 40 MG TAB PO SCH (20:33)
[2019-04-03] MEDS: Rosuvastatin 10 MG TAB PO SCH (20:33)
[2019-04-03] MEDS: Heparin 10,000 UNITS/ 10 ML VIAL SLOW IVP SCH (20:42)
[2019-04-03] MEDS: Heparin 25,000 units/D5W 500 ML IVPB SCH (20:45)
[2019-04-04 02:46] LABS: Hemoglobin 11.2 g/dL (14.0-18.0); Mean Corpuscular HGB CONC 33.6 g/dL (32.0-36.0); Mean Corpuscular Hemoglobin 33.6 pg (27.0-31.0); Mean Platelet Volume 9.4 fL (7.4-10.4); Platelet Count 148 thou/uL (130-400); RBC Distribution Width 13.4 % (11.5-14.5); Red Blood Cell (RBC) Count 3.33 mill/uL (4.70-6.10)
[2019-04-04 03:05] LABS: PTT 229.3 SEC (22.9-36.1)
[2019-04-04 03:37] LABS: Anion Gap 23 mmol/L (10-20); BUN (Urea Nitrogen) 75 mg/dL (8.4-25.7); Calc. Creatinine Clearance 8 mL/min (70-130); Calcium 8.7 mg/dL (7.8-10.44); Carbon Dioxide 22 mmol/L (23-31); Chloride 98 mmol/L (98-107); Estimated GFR-MDRD 7; Glucose 140 mg/dL (83-110); Potassium 4.3 mmol/L (3.5-5.1); Sodium 139 mmol/L (136-145)
[2019-04-04] MEDS: predniSONE 20 MG TAB PO SCH (08:53)
[2019-04-04] MEDS: Aspirin 81 mg Enteric Coated Tablet PO SCH (08:53)
[2019-04-04] MEDS: Amoxicillin/Potassium Clav 500 MG TAB PO SCH ×2 (08:53→14:10)
[2019-04-04] MEDS: Famotidine/PF 20 mg/2ml Vial SLOW IVP SCH (08:54)
[2019-04-04] MEDS: Insulin Glargine 20 UNITS in Pre-Filled Syringe SC SCH (08:54)
--- NOTE | 2019-04-04 09:46 | PRG ---
DATE OF SERVICE: 04/04/2019 SUBJECTIVE: Mr. Chandler is a 73-year-old white male, followed up by the [facility] for his maintenance hemodialysis. I have scheduled him for his hemodialysis. Of interest, the patient developed rapid atrial fibrillation. He has been started on IV amiodarone drip by his insurance office manager. He also was initially admitted for an NSTEMI. A planned CABG is being considered next week. No other complaints today. No chest pain or shortness of breath. OBJECTIVE: VITAL SIGNS: Blood pressure 98/61, heart rate was noted at 126, respiratory rate 29, and pulse ox 100%. GENERAL: The patient is awake, alert, and comfortable, not in distress. SKIN: Adequate turgor. HEENT: Pinkish conjunctivae. Anicteric sclerae. NECK: No neck mass. No carotid bruits. No JVD. CHEST: No deformities. LUNGS: Clear breath sounds. No wheezing. No crackles. HEART: Normal sinus rhythm. No murmur. No gallops. No rubs. ABDOMEN: Globular, soft, and nontender. No masses. EXTREMITIES: No edema. No deformities. MEDICATIONS: Medications of April 04, 2019 reviewed. LABORATORY DATA: Laboratories of 04/04/2019; sodium 139, potassium 4.3, chloride 98, carbon dioxide 22, BUN 75, creatinine 7.91, calcium 8.7, glucose 138, and hemoglobin 11.2. ASSESSMENT AND PLAN: 1. End-stage renal disease. We will continue current Monday, , and Monday hemodialysis. We will try to max out fluid removal as tolerated by the patient. 2. Status post [id number]-[id number] myocardial infarction-the patient evaluated by Cardiology and Cardiothoracic Surgery. He has a three-vessel disease. The plan is for him to undergo coronary artery bypass graft next week. 3. Recent atrial fibrillation, currently on IV amiodarone drip. 4. Congestive heart failure-secondary to cardiac ischemia, much improved. 5. Overall prognosis remains guarded. Job ID: [id number]
[2019-04-04] MEDS: HumaLOG 300 UNITS/3 ML VIAL SC PRN ×2 (11:25→16:16)
[2019-04-04] MEDS: Heparin 10,000 UNITS/ 10 ML VIAL SLOW IVP SCH (14:12)
[2019-04-04] MEDS: Amiodarone 450 MG, Admixture Fee 1 EACH in Dextrose 5% in Water 250 ML IVPB SCH (16:07)
[2019-04-04] MEDS ORDERED: Digoxin 0.5 MG/2 ML AMP SLOW IVP SCH (16:15)
--- NOTE | 2019-04-04 16:41 | PRG ---
DATE OF SERVICE: 04/04/2019 SERVICE: Pulmonary Medicine. INTERVAL HISTORY: The patient remains a little bit tachycardic. He denies any current fevers, chills, nausea, vomiting, or diarrhea. Otherwise, there has been no interval change to his condition. He is up and his strength has improved. He is working with physical therapy a little bit. He has yet to be ambulatory. PHYSICAL EXAMINATION: VITAL SIGNS: Afebrile, pulse 118, blood pressure 86/73, respirations 28, saturation 98%, currently on 2 L nasal cannula. GENERAL: The patient is awake and alert, in no apparent distress. LUNGS: Wonderful air entry with mild prolongation of the expiratory phase. I do not hear any crackles or wheezing today. HEART: Normal rate, regular. ABDOMEN: Soft, nontender, nondistended. Bowel sounds are positive. MUSCULOSKELETAL: No cyanosis or clubbing. There is no pitting in the bilateral lower extremities. NEUROLOGIC: Grossly nonfocal. LABORATORY DATA: WBC 9.0, hemoglobin 11.2, and platelets 148,000. PTT 51.1. Creatinine 7.91, BUN 75, anion gap 23. Basic metabolic profile is otherwise unremarkable. Alpha strep is positive one blood culture, though three other blood cultures are unremarkable, likely suggesting that is a contaminant. ASSESSMENT: 1. Acute hypoxic respiratory failure, resolving. 2. Nzj-BT-vlohvrxgi myocardial infarction. 3. End-stage renal disease. 4. Atrial fibrillation with rapid ventricular response, currently slightly tachycardic. 5. Chronic obstructive pulmonary disease with acute exacerbation, resolving. 6. Acute on chronic systolic and diastolic heart failure. DISCUSSION AND PLAN: The patient is doing great from respiratory standpoint. I am going to go ahead and give him one dose of digoxin. Laboratory holiday will be provided tomorrow morning. Pulmonary/Critical Care will continue to follow along while the patient remains in this location. Since he is going to the OR on Monday, I do not see a strong sense of requirement to get him out of the unit. That being said, space is an issue, he can certainly be downgraded for couple of days. We will involve a walking program with him to make certain he maintains his strength going into this procedure. Job ID: [id number]
[2019-04-04] MEDS ORDERED: Albumin 25% 25 GM/100 ML BOT IVPB SCH (16:45)
--- NOTE | 2019-04-04 17:33 | PDOC.HOSPP ---
- Subjective Encounter Date: 04/04/19 Encounter Time: 17:00 Subjective: The patient is going in and out of afib, heart rate 100-140, BP 80-100. He is on amiodarone drip and heparin drip. No chest pain or palpitations. Patient is getting dialyzed now. He denies abdominal pain He is having 3 loose stools daily. Reports history of diverticulitis and has chronic diarrhea. Highest temp was 99. He is on augmentin and is almost done Patient ate breakfast this am but skipped lunch because he didnt feel hungry - Objective Vital Signs & Weight: Vital Signs (12 hours) Temp Pulse Pulse Pulse Resp BP BP 04/04/19 16:23 115 H 04/04/19 16:00 99.4 F 04/04/19 13:15 04/04/19 13:13 112 H 17 04/04/19 12:00 98.6 F 04/04/19 10:14 136 H 108 H 82/66 L 103/56 L 04/04/19 08:00 97.8 F 04/04/19 07:05 04/04/19 07:03 119 H 21 H Pulse Ox Pulse Ox Pulse Ox 04/04/19 16:23 04/04/19 16:00 04/04/19 13:15 99 04/04/19 13:13 99 04/04/19 12:00 04/04/19 10:14 98 100 04/04/19 08:00 100 04/04/19 07:05 100 04/04/19 07:03 100 Weight Admit Weight 167 lb 15.876 oz Weight 141 lb 1.533 oz Most Recent Monitor Data Heart Rate from ECG 115 NIBP 84/63 NIBP BP-Mean 70 Respiration from ECG 18 SpO2 100 I&O: 04/03/19 04/04/19 04/05/19 06:59 06:59 06:59 Intake Total 655 805.9 894 Output Total 75 0 0 Balance 580 805.9 894 Result Diagrams: 04/04/19 02:38 04/04/19 02:38 Additional Labs: Accuchecks 04/04/19 04/04/19 04/04/19 16:14 11:26 04:06 POC Glucose 207 H 322 H 138 H 04/03/19 20:33 POC Glucose 143 H Hospitalist ROS - Review of Systems Constitutional: denies: fever, chills - Medication Medications: Active Medications Generic Name Dose Route Start Last Admin Trade Name Víctor PRN Reason Stop Dose Admin Albumin Human 25 gm 04/04/19 16:45 04/04/19 17:05 Albumin 25% IVPB 04/04/19 19:00 25 gm NOW [facility] Administration Albuterol/Ipratropium 3 ml 03/31/19 19:00 04/04/19 13:13 Duoneb NEB 3 ml [id number] [facility] Administration Amoxicillin/Clavulanate Potassium 500 mg 04/02/19 09:00 04/04/19 08:53 Augmentin PO 04/05/19 10:00 500 mg DAILY [facility] Administration Amoxicillin/Clavulanate Potassium 500 mg 04/02/19 14:00 04/04/19 14:10 Augmentin PO 500 mg TuThSa@1400 [facility] Administration Aspirin 81 mg 04/01/19 09:00 04/04/19 08:53 Ecotrin PO 81 mg DAILY [facility] Administration Atorvastatin Calcium 40 mg 04/02/19 21:00 04/03/19 20:33 Lipitor PO 40 mg HS [facility] Administration Digoxin 0.25 mg 04/04/19 16:15 04/04/19 16:23 Lanoxin SLOW IVP 04/04/19 18:15 0.25 mg NOW [facility] Administration Epoetin Nadeem-epbx 7,500 unit 04/02/19 09:15 04/02/19 11:19 Retacrit SC 7,500 unit Q7D [facility] Administration Famotidine 20 mg 04/02/19 09:00 04/04/19 08:54 Pepcid SLOW IVP 20 mg DAILY [facility] Administration Heparin Sodium (Porcine) 0 units 04/03/19 20:15 04/04/19 14:12 Heparin 1,000 Units/Ml (10 Ml) SLOW IVP 1,920 unit WILLCALL [facility] Administration Heparin Sodium/Dextrose 500 mls @ 0 mls/hr 03/31/19 18:30 04/03/19 20:45 Heparin 25,000 Units/D5w 500 Ml IVPB 500 mls INF [facility] Administration Protocol Per Protocol Insulin Glargine 20 units/ 0.2 mls @ 0 mls/hr 04/02/19 09:00 04/04/19 08:54 Miscellaneous Medication SC 0.2 mls QAM [facility] Administration Amiodarone HCl 450 mg/ 259 mls @ 0 mls/hr 04/03/19 17:00 04/04/19 16:07 Miscellaneous Medication 1 IVPB 259 mls each/ Dextrose/Water INF [facility] Administration Protocol As Directed Insulin Human Lispro 0 units 04/01/19 12:34 04/04/19 16:16 Humalog SC 3 unit .MILD SLIDING SCALE PRN Administration Mild Correctional Scale Prednisone 40 mg 04/01/19 08:00 04/04/19 08:53 Prednisone PO 04/05/19 08:01 40 mg QAM-WM [facility] Administration Sodium Chloride 10 ml 04/01/19 21:00 04/04/19 08:55 Flush - Normal Saline IVF 10 ml Q12HR [facility] Administration Sodium Chloride 10 ml 04/01/19 18:57 04/02/19 08:57 Flush - Normal Saline IVF 10 ml PRN PRN Administration Saline Flush - Exam General Appearance: NAD, awake alert Eye: PERRL, anicteric sclera ENT: normocephalic atraumatic, no oropharyngeal lesions Neck: supple, symmetric, no JVD, no thyromegaly Heart: RRR, no murmur, no gallops, no rubs Respiratory: CTAB, no wheezes, no rales, no ronchi Gastrointestinal: soft, non-tender, non-distended, normal bowel sounds Extremities: no cyanosis, no clubbing, no edema Skin: normal turgor, no lesions, no rashes Neurological: cranial nerve grossly intact, normal sensation to touch, no focal deficits, no new deficit Musculoskeletal: normal tone, normal strength, no muscle wasting Psychiatric: normal affect, normal behavior, A&O x 3, oriented to person Hosp A/P - Plan Chest X ray: mild bibasilar airspace disease and small bilateral pleural effusions Chest Xray 04/02: patchy density at the right lung base - possible pneumonitis or atelectasis THis is a 73 year old male who presented with flash pulmonary edema, requiring intubation. S/p cardiac cath which showed severe 3 vessel CAD Acute hypoxic respiratory failure secondary to NSTEMI with 3 vessel CAD Acute systolic heart failure secondary to NSTEMI Atrial fibrillation - extubated currently. Cardiac cath showed 80-90% stenosis LAD, 99% stenosis circumflex and 70% stenosis RCA. ECHO shows EF 20-25% - cardiothoracic surgery consulted for CABG, currently stating he is high risk and may need dialysis for several days. They may do this monday - continue heparin drip and amiodarone drip - chest Xray today showing persistent RL base density. On augmentin day 5, prednisone for 5 days. D/c augmentin tomorrow ESRD - nephro on board, needs dialysis Monday, and Monday Urine retention BPH - watt catheter removed -urology signed off Hyperlipidemia - continue statin Hypertension - BP soft, hold nifedipine and losartan for now Type II diabetes - insulin sliding scale, glargine 20 units qam, fingerstick 130 to 320 this morning, will monitor Code status: full code DVT prophylaxis: heparin drip
--- NOTE | 2019-04-04 18:18 | PDOC.CPN ---
- Subjective Date: 04/04/19 Time: 18:25 Interval history: Remains in afib. HR in the 100's to 120's. No chest pain. Tolerating HD. Currently under his dry weight. - Review of Systems General: denies: fever/chills, weight/appetite/sleep changes, night sweats, fatigue Respiratory: denies: cough, congestion, shortness of breath, exercise intolerance Cardiovascular: denies: chest pain, palpitation, edema, paroxysmal nocturnal dyspnea, orthopnea Gastrointestinal: denies: nausea, vomiting, diarrhea, constipation, abd pain, GI bleeding Musculoskeletal: denies: pain, tenderness, stiffness, swelling, arthritis/ arthralgias Neurological: denies: numbness, syncope, seizure, weakness - Objective Allergies/Adverse Reactions: Allergies Allergy/AdvReac Type Severity Reaction Status Date / Time latex Allergy Hives Verified 03/31/19 22:06 Visit Medications: Current Medications Albumin Human (Albumin 25%) 25 gm IVPB NOW [facility] Stop: 04/04/19 19:00 Last Admin: 04/04/19 17:05 Dose: 25 gm Albuterol/Ipratropium (Duoneb) 3 ml NEB [id number] [facility] Last Admin: 04/04/19 13:13 Dose: 3 ml Amoxicillin/Clavulanate Potassium (Augmentin) 500 mg PO DAILY [facility] Stop: 04/05/19 10:00 Last Admin: 04/04/19 08:53 Dose: 500 mg Amoxicillin/Clavulanate Potassium (Augmentin) 500 mg PO TuThSa@1400 [facility] Last Admin: 04/04/19 14:10 Dose: 500 mg Aspirin (Ecotrin) 81 mg PO DAILY [facility] Last Admin: 04/04/19 08:53 Dose: 81 mg Atorvastatin Calcium (Lipitor) 40 mg PO HS [facility] Last Admin: 04/03/19 20:33 Dose: 40 mg Dextrose/Water (Dextrose 50%) 25 gm SLOW IVP PRN PRN PRN Reason: Hypoglycemia Epoetin Nadeem-epbx (Retacrit) 7,500 unit SC Q7D [facility] Last Admin: 04/02/19 11:19 Dose: 7,500 unit Famotidine (Pepcid) 20 mg SLOW IVP DAILY [facility] Last Admin: 04/04/19 08:54 Dose: 20 mg Glucagon (Glucagon) 1 mg IM PRN PRN PRN Reason: Hypoglycemia Heparin Sodium (Porcine) (Heparin 1,000 Units/Ml (10 Ml)) 0 units SLOW IVP WILLCALL [facility] Last Admin: 04/04/19 14:12 Dose: 1,920 unit Hydralazine HCl (Apresoline) 10 mg SLOW IVP Q4H PRN PRN Reason: Persistent BP Elevations Heparin Sodium/Dextrose (Heparin 25,000 Units/D5w 500 Ml) 500 mls @ 0 mls/hr IVPB INF [facility]; Protocol Last Admin: 04/03/19 20:45 Dose: 500 mls Dextrose/Water (D5w) 1,000 mls @ 0 mls/hr IV .Q0M PRN PRN Reason: Hypoglycemia Insulin Glargine 20 units/ (Miscellaneous Medication) 0.2 mls @ 0 mls/[facility] Admin: 04/04/19 08:54 Dose: 0.2 mls Amiodarone HCl 450 mg/Miscellaneous Medication 1 each/ Dextrose/Water 259 mls @ 0 mls/hr IVPB INF [facility]; Protocol Last Admin: 04/04/19 16:07 Dose: 259 mls Insulin Human Lispro (Humalog) 0 units SC .MILD SLIDING SCALE PRN PRN Reason: Mild Correctional Scale Last Admin: 04/04/19 16:16 Dose: 3 unit Mineral Oil/White Petrolatum (Systane Nighttime Eye Ointment) 0 gm EA EYE PRN PRN PRN Reason: Dry Eyes Prednisone (Prednisone) [facility] Stop: 04/05/19 08:01 Last Admin: 04/04/19 08:53 Dose: 40 mg Sodium Chloride (Flush - Normal Saline) 10 ml IVF Q12HR [facility] Last Admin: 04/04/19 08:55 Dose: 10 ml Sodium Chloride (Flush - Normal Saline) 10 ml IVF PRN PRN PRN Reason: Saline Flush Last Admin: 04/02/19 08:57 Dose: 10 ml Vital Signs & Weight: Vital Signs Temp Pulse Pulse Pulse Resp BP BP 04/04/19 16:23 115 H 04/04/19 16:00 99.4 F 04/04/19 13:15 04/04/19 13:13 112 H 17 04/04/19 12:00 98.6 F 04/04/19 10:14 136 H 108 H 82/66 L 103/56 L 04/04/19 08:00 97.8 F 04/04/19 07:05 04/04/19 07:03 119 H 21 H Pulse Ox Pulse Ox Pulse Ox 04/04/19 16:23 04/04/19 16:00 04/04/19 13:15 99 04/04/19 13:13 99 04/04/19 12:00 04/04/19 10:14 98 100 04/04/19 08:00 100 04/04/19 07:05 100 04/04/19 07:03 100 Admit Weight 167 lb 15.876 oz Weight 141 lb 1.533 oz - Physical Exam General: alert & oriented x3, no apparent distress HEENT: normocephaly Neck: supple neck Cardiac: irregularly regular Lungs: clear to auscultation Neuro: grossly intact Abdomen: active bowel sounds, soft, non-tender Extremities: no edema Skin: clear Musculoskeletal: no pain - Labs Result Diagrams: 04/04/19 02:38 04/04/19 02:38 Troponin/CKMB CK-MB (CK-2) 75.2 ng/mL (0-6.6) H* 03/31/19 18:07 Troponin I 23.773 ng/mL (< 0.028) H* 03/31/19 20:57 - Telemetry Supraventricular conduction: atrial fibrillation - Assessment/Plan Assessment/Plan: 1. NSTEMI 2. ESRD on HD 3. Acute on chronic systolic heart failure 4. Multivessel CAD 5. Ischemic CM 6. Afib RVR. PLAN: - Continue ASA/Statin. - Continue Heparin gtt. - Amiodarone drip. Will add digoxin for better rate control. Not many other options due to borderline low Blood pressure short of cardioversion. If he becomes unstable would do emergent cardioversion. - CABG and SRINIVAS ligation next week. - Repeat echo shows EF reduced at 20-25%. - High risk patient for any procedure. Very little options as coronary disease is highly complex and not amenable to catheter based interventions. Plan on CABG Monday. - Family and patient aware of high risk and for need for aggressive rehab after surgery. They understand and verbalize understanding of this. - Critical Care Time Critical care time (mins): 30
[2019-04-04] MEDS ORDERED: Digoxin 0.125 MG TAB PO SCH ×2 (18:30→19:30)
[2019-04-04 20:10] LABS: PTT 122.4 SEC (22.9-36.1)
[2019-04-04] MEDS: Atorvastatin Calcium 40 MG TAB PO SCH (21:06)
[2019-04-05 04:46] LABS: Hemoglobin 10.3 g/dL (14.0-18.0); Mean Corpuscular Hemoglobin 33.7 pg (27.0-31.0); Mean Corpuscular Volume 99.2 fL (78.0-98.0); Mean Platelet Volume 9.9 fL (7.4-10.4); Platelet Count 154 thou/uL (130-400); RBC Distribution Width 13.4 % (11.5-14.5); Red Blood Cell (RBC) Count 3.05 mill/uL (4.70-6.10); White Blood Cell (WBC) Count 8.1 thou/uL (4.8-10.8)
[2019-04-05 04:49] LABS: Hemoglobin 10.1 g/dL (14.0-18.0); Platelet Count 158 thou/uL (130-400)
[2019-04-05 05:11] LABS: ALT (SGPT) 244 U/L (8-55); AST (SGOT) 237 U/L (5-34); Albumin 3.8 g/dL (3.4-4.8); Alkaline Phosphatase 91 U/L (40-110); Anion Gap 18 mmol/L (10-20); BUN (Urea Nitrogen) 42 mg/dL (8.4-25.7); Bilirubin, Total 0.8 mg/dL (0.2-1.2); Calc. Creatinine Clearance 11 mL/min (70-130); Carbon Dioxide 29 mmol/L (23-31); Chloride 97 mmol/L (98-107); Estimated GFR-MDRD 11; Globulin 3.1 g/dL (2.4-3.5); Glucose 141 mg/dL (83-110); Potassium 4.5 mmol/L (3.5-5.1); Protein, Total 6.9 g/dL (5.8-8.1); Sodium 139 mmol/L (136-145)
[2019-04-05] MEDS: Heparin 10,000 UNITS/ 10 ML VIAL SLOW IVP SCH (05:55)
[2019-04-05] MEDS: HumaLOG 300 UNITS/3 ML VIAL SC PRN ×4 (06:05→21:37)
[2019-04-05] MEDS: Amiodarone 450 MG, Admixture Fee 1 EACH in Dextrose 5% in Water 250 ML IVPB SCH ×2 (07:30→22:13)
[2019-04-05] MEDS: Famotidine/PF 20 mg/2ml Vial SLOW IVP SCH (08:57)
[2019-04-05] MEDS: predniSONE 20 MG TAB PO SCH (08:58)
[2019-04-05] MEDS: Digoxin 0.125 MG TAB PO SCH (08:58)
[2019-04-05] MEDS: Aspirin 81 mg Enteric Coated Tablet PO SCH (08:58)
[2019-04-05] MEDS: Amoxicillin/Potassium Clav 500 MG TAB PO SCH (08:58)
[2019-04-05] MEDS: Insulin Glargine 20 UNITS in Pre-Filled Syringe SC SCH (08:59)
--- NOTE | 2019-04-05 09:54 | PRG ---
DATE OF SERVICE: 04/05/2019 SUBJECTIVE: Mr. Chandler is a 73-year-old white male with known history of ESRD and was admitted for ischemic CHF. He ruled in for an NM. He developed a [id number] NM. He underwent cardiac cath and 3-vessel coronary artery disease was found. He is scheduled for CABG next week. We are following him up for his maintenance hemodialysis. He did undergo hemodialysis yesterday and we were able to remove 1 L of fluid. He also has developed AFib, currently was placed on IV amiodarone. No new complaints today. He is ambulating. He denies any chest pain or any worsening shortness of breath. OBJECTIVE: VITAL SIGNS: Blood pressure is 102/63, heart rate 81, respiratory rate 20, and pulse ox 97%. GENERAL: Awake, supine, comfortable, not in overt distress. SKIN: Adequate turgor. HEENT: He has a pinkish conjunctivae. Anicteric sclerae. NECK: No neck mass. No carotid bruits. No JVD. CHEST: No deformities. LUNGS: Decreased breath sounds. HEART: Normal sinus rhythm. No murmur. No gallops. No rubs. ABDOMEN: Globular, soft, and nontender. No masses. EXTREMITIES: No edema. No deformities. MEDICATIONS: Medications of 04/05/2019 were reviewed. LABORATORIES: On 04/05/2019: White count 8.1 and hemoglobin 10.3. Sodium 139, potassium 4.5, chloride 97, carbon dioxide 29, BUN 42, and creatinine 5.25. AST 237, ALT 244, and albumin 3.8. ASSESSMENT AND PLAN: 1. Congestive heart failure, clinically much improved with fluid removal with dialysis. 2. Status post myocardial infarction. Cardiology is following. The patient is scheduled for coronary artery bypass graft next week. 3. Elevated liver function test, most likely from passive congestive liver from his congestive heart failure. 4. Overall prognosis remains guarded. There is no indication for any emergent hemodialysis with this patient. Job ID: [id number]
[2019-04-05] MEDS: Heparin 25,000 units/D5W 500 ML IVPB SCH (12:06)
--- NOTE | 2019-04-05 14:41 | PRG ---
DATE OF SERVICE: 04/05/2019 INTERVAL HISTORY: The patient is doing fine from respiratory standpoint. Breathing comfortably. He has been weaned down to room air. He has no complaints of chest discomfort, nausea, or vomiting. Otherwise, he is in his usual state of health. He is going down for operation like on Monday. He will be on dialysis prior to this. PHYSICAL EXAMINATION: VITAL SIGNS: Afebrile, pulse 86, blood pressure 95/57, respirations 19, saturation 100% on room air. GENERAL: The patient is awake and alert, in no apparent distress. LUNGS: Decent air entry without any crackles, rhonchi, or wheezing. HEART: Normal rate and regular. ABDOMEN: Soft, nontender, nondistended. Bowel sounds are positive. MUSCULOSKELETAL: No cyanosis or clubbing. No pitting in the bilateral lower extremities. NEUROLOGIC: Grossly nonfocal. LABORATORY DATA: CBC is stable and/or unremarkable. Basic metabolic profile is only significant for creatinine 5.25. AST and ALT are gently trending upward to 37 and 244 respectively. Serologies are unremarkable. 1/4 blood cultures is growing alpha strep, likely contaminant. IMAGING DATA: Echocardiogram demonstrates 20% to 25% ejection fraction, underlying atrial fibrillation. RVSP is elevated. ASSESSMENT: 1. Acute hypoxic respiratory failure. 2. [id number] myocardial infarction. 3. End-stage renal disease. 4. Atrial fibrillation with rapid ventricular response, returned to sinus rhythm. 5. Chronic obstructive pulmonary disease with acute exacerbation, resolved. 6. [id number] systolic and diastolic heart failure. DISCUSSION AND PLAN: From purely respiratory perspective, the patient is optimized to proceed with any type of surgical intervention. It is my understanding he is getting dialysis on Monday and will go for coronary artery bypass graft on Monday morning. He is stable for transition out of the ICU, but since he will be right back on Monday, it is not unreasonable to keep him. Pulmonary will follow in this location. Job ID: [id number]
--- NOTE | 2019-04-05 15:58 | PDOC.CPN ---
- Subjective Date: 04/05/19 Time: 15:57 Interval history: He is doing well. No chest pain. Breathing at baseline. - Review of Systems General: denies: fever/chills, weight/appetite/sleep changes, night sweats, fatigue Respiratory: denies: cough, congestion, shortness of breath, exercise intolerance Cardiovascular: denies: chest pain, palpitation, edema, paroxysmal nocturnal dyspnea, orthopnea Gastrointestinal: denies: nausea, vomiting, diarrhea, constipation, abd pain, GI bleeding Musculoskeletal: denies: pain, tenderness, stiffness, swelling, arthritis/ arthralgias Neurological: denies: numbness, syncope, seizure, weakness - Objective Allergies/Adverse Reactions: Allergies Allergy/AdvReac Type Severity Reaction Status Date / Time latex Allergy Hives Verified 03/31/19 22:06 Visit Medications: Current Medications Albuterol/Ipratropium (Duoneb) 3 ml NEB [id number] [facility] Last Admin: 04/05/19 13:25 Dose: 3 ml Amoxicillin/Clavulanate Potassium (Augmentin) 500 mg PO TuThSa@1400 [facility] Last Admin: 04/04/19 14:10 Dose: 500 mg Aspirin (Ecotrin) 81 mg PO DAILY [facility] Last Admin: 04/05/19 08:58 Dose: 81 mg Atorvastatin Calcium (Lipitor) 40 mg PO HS [facility] Last Admin: 04/04/19 21:06 Dose: 40 mg Dextrose/Water (Dextrose 50%) 25 gm SLOW IVP PRN PRN PRN Reason: Hypoglycemia Digoxin (Lanoxin) 0.125 mg PO Q2D@0900 [facility] Last Admin: 04/05/19 08:58 Dose: 0.125 mg Epoetin Nadeem-epbx (Retacrit) 7,500 unit SC Q7D [facility] Last Admin: 04/02/19 11:19 Dose: 7,500 unit Famotidine (Pepcid) 20 mg PO DAILY [facility] Glucagon (Glucagon) 1 mg IM PRN PRN PRN Reason: Hypoglycemia Heparin Sodium (Porcine) (Heparin 1,000 Units/Ml (10 Ml)) 0 units SLOW IVP WILLCALL [facility] Last Admin: 04/05/19 05:55 Dose: 1,920 unit Hydralazine HCl (Apresoline) 10 mg SLOW IVP Q4H PRN PRN Reason: Persistent BP Elevations Heparin Sodium/Dextrose (Heparin 25,000 Units/D5w 500 Ml) 500 mls @ 0 mls/hr IVPB INF [facility]; Protocol Last Admin: 04/05/19 12:06 Dose: 500 mls Dextrose/Water (D5w) 1,000 mls @ 0 mls/hr IV .Q0M PRN PRN Reason: Hypoglycemia Insulin Glargine 20 units/ (Miscellaneous Medication) 0.2 mls @ 0 mls/hr SC QAM [facility] Last Admin: 04/05/19 08:59 Dose: 0.2 mls Amiodarone HCl 450 mg/Miscellaneous Medication 1 each/ Dextrose/Water 259 mls @ 0 mls/hr IVPB INF [facility]; Protocol Last Admin: 04/05/19 07:30 Dose: 259 mls Insulin Human Lispro (Humalog) 0 units SC .MILD SLIDING SCALE PRN PRN Reason: Mild Correctional Scale Last Admin: 04/05/19 12:06 Dose: 3 unit Mineral Oil/White Petrolatum (Systane Nighttime Eye Ointment) 0 gm EA EYE PRN PRN PRN Reason: Dry Eyes Sodium Chloride (Flush - Normal Saline) 10 ml IVF Q12HR [facility] Last Admin: 04/05/19 08:59 Dose: 10 ml Sodium Chloride (Flush - Normal Saline) 10 ml IVF PRN PRN PRN Reason: Saline Flush Last Admin: 04/02/19 08:57 Dose: 10 ml Vital Signs & Weight: Vital Signs Temp Pulse Pulse Resp BP Pulse Ox 04/05/19 13:50 100 04/05/19 13:25 86 19 100 04/05/19 11:00 98.6 F 04/05/19 09:10 67 96/53 L 04/05/19 08:58 90 04/05/19 08:00 98.9 F 100 04/05/19 06:58 81 20 97 04/05/19 04:00 99 F 95 Admit Weight 167 lb 15.876 oz Weight 153 lb 7.068 oz - Physical Exam General: alert & oriented x3 HEENT: mucus membranes moist Neck: supple neck Cardiac: regular rate and rhythm Lungs: clear to auscultation Neuro: grossly intact Abdomen: active bowel sounds, soft, non-tender Extremities: no edema Skin: clear Musculoskeletal: no pain - Labs Result Diagrams: 04/05/19 04:34 04/05/19 04:34 Troponin/CKMB CK-MB (CK-2) 75.2 ng/mL (0-6.6) H* 03/31/19 18:07 Troponin I 23.773 ng/mL (< 0.028) H* 03/31/19 20:57 - Telemetry Sinus rhythms and dysrhythmias: sinus rhythm - Assessment/Plan Assessment/Plan: 1. NSTEMI 2. ESRD on HD 3. Acute on chronic systolic heart failure 4. Multivessel CAD 5. Ischemic CM 6. Paroxysmal afib. Back in sinus. PLAN: - Continue ASA/Statin. - Continue Heparin gtt. - Amiodarone drip. - CABG and SRINIVAS ligation next week. - Repeat echo shows EF reduced at 20-25%. - High risk patient for any procedure. Very little options as coronary disease is highly complex and not amenable to catheter based interventions. Plan on CABG Monday.
--- NOTE | 2019-04-05 18:50 | PDOC.HOSPP ---
- Subjective Encounter Date: 04/05/19 Encounter Time: 18:47 Subjective: The patient denies chest pain or shortness of breath. Afib is better controlled after getting digoxin loading - Objective Vital Signs & Weight: Vital Signs (12 hours) Temp Pulse Pulse Resp BP Pulse Ox 04/05/19 16:00 98.5 F 04/05/19 13:50 100 04/05/19 13:25 86 19 100 04/05/19 11:00 98.6 F 04/05/19 09:10 67 96/53 L 04/05/19 08:58 90 04/05/19 08:00 98.9 F 100 04/05/19 06:58 81 20 97 Weight Admit Weight 167 lb 15.876 oz Weight 153 lb 7.068 oz Most Recent Monitor Data Heart Rate from ECG 83 NIBP 107/75 NIBP BP-Mean 85 Respiration from ECG 31 SpO2 100 I&O: 04/04/19 04/05/19 04/06/19 06:59 06:59 06:59 Intake Total 805.9 894 235 Output Total 0 0 0 Balance 805.9 894 235 Result Diagrams: 04/05/19 04:34 04/05/19 04:34 Additional Labs: Accuchecks 04/05/19 04/05/19 04/05/19 16:18 11:39 06:05 POC Glucose 216 H 242 H 168 H 04/04/19 21:01 POC Glucose 114 H Hospitalist ROS - Review of Systems Constitutional: denies: fever, chills Neurological: denies: weakness, numbness - Medication Medications: Active Medications Generic Name Dose Route Start Last Admin Trade Name Víctor PRN Reason Stop Dose Admin Albuterol/Ipratropium 3 ml 03/31/19 19:00 04/05/19 13:25 Duoneb NEB 3 ml [id number] AFTAB Administration Amoxicillin/Clavulanate Potassium 500 mg 04/02/19 14:00 04/04/19 14:10 Augmentin PO 500 mg TuThSa@1400 AFTAB Administration Aspirin 81 mg 04/01/19 09:00 04/05/19 08:58 Ecotrin PO 81 mg DAILY AFTAB Administration Atorvastatin Calcium 40 mg 04/02/19 21:00 04/04/19 21:06 Lipitor PO 40 mg HS AFTAB Administration Digoxin 0.125 mg 04/05/19 09:00 04/05/19 08:58 Lanoxin PO 0.125 mg Q2D@0900 AFTAB Administration Epoetin Nadeem-epbx 7,500 unit 04/02/19 09:15 04/02/19 11:19 Retacrit SC 7,500 unit Q7D AFTAB Administration Heparin Sodium (Porcine) 0 units 04/03/19 20:15 04/05/19 05:55 Heparin 1,000 Units/Ml (10 Ml) SLOW IVP 1,920 unit WILLCALL AFTAB Administration Heparin Sodium/Dextrose 500 mls @ 0 mls/hr 03/31/19 18:30 04/05/19 12:06 Heparin 25,000 Units/D5w 500 Ml IVPB 500 mls INF AFTAB Administration Protocol Per Protocol Insulin Glargine 20 units/ 0.2 mls @ 0 mls/hr 04/02/19 09:00 04/05/19 08:59 Miscellaneous Medication SC 0.2 mls QAM AFTAB Administration Amiodarone HCl 450 mg/ 259 mls @ 0 mls/hr 04/03/19 17:00 04/05/19 07:30 Miscellaneous Medication 1 IVPB 259 mls each/ Dextrose/Water INF AFTAB Administration Protocol As Directed Insulin Human Lispro 0 units 04/01/19 12:34 04/05/19 16:21 Humalog SC 3 unit .MILD SLIDING SCALE PRN Administration Mild Correctional Scale Sodium Chloride 10 ml 04/01/19 21:00 04/05/19 08:59 Flush - Normal Saline IVF 10 ml Q12HR AFTAB Administration Sodium Chloride 10 ml 04/01/19 18:57 04/02/19 08:57 Flush - Normal Saline IVF 10 ml PRN PRN Administration Saline Flush - Exam General Appearance: NAD, awake alert Eye: PERRL, anicteric sclera ENT: normocephalic atraumatic, no oropharyngeal lesions Neck: supple, symmetric, no JVD, no thyromegaly Heart: RRR, no murmur, no gallops, no rubs Respiratory: CTAB, no wheezes, no rales, no ronchi Gastrointestinal: soft, non-tender, non-distended, normal bowel sounds Extremities: no cyanosis, no clubbing, no edema Skin: normal turgor, no lesions, no rashes Neurological: cranial nerve grossly intact, normal sensation to touch, no focal deficits, no new deficit Musculoskeletal: normal tone, normal strength, no muscle wasting Psychiatric: normal affect, normal behavior, A&O x 3, oriented to person, oriented to place, oriented to time Hosp A/P - Plan Chest X ray: mild bibasilar airspace disease and small bilateral pleural effusions Chest Xray 04/02: patchy density at the right lung base - possible pneumonitis or atelectasis THis is a 73 year old male who presented with flash pulmonary edema, requiring intubation. S/p cardiac cath which showed severe 3 vessel CAD Acute hypoxic respiratory failure secondary to NSTEMI with 3 vessel CAD Acute systolic heart failure secondary to NSTEMI Atrial fibrillation - extubated currently. Cardiac cath showed 80-90% stenosis LAD, 99% stenosis circumflex and 70% stenosis RCA. ECHO shows EF 20-25% - cardiothoracic surgery consulted for CABG, patient will get this on Monday. He is high risk for surgery - continue heparin drip and amiodarone drip - chest Xray today showing persistent RL base density. Discontinued augmentin and prednisone, finished 5 day course ESRD - nephro on board, needs dialysis Monday, and Monday Urine retention BPH - watt catheter removed -urology signed off Hyperlipidemia - continue statin Hypertension - BP soft, continue holding antihypertensives Type II diabetes - insulin sliding scale, glargine 20 units qam, fingerstick 114 to 216 Code status: full code DVT prophylaxis: heparin drip
[2019-04-05] MEDS: Atorvastatin Calcium 40 MG TAB PO SCH (21:34)
[2019-04-06 04:27] LABS: Hemoglobin 10.4 g/dL (14.0-18.0); Mean Corpuscular HGB CONC 34.3 g/dL (32.0-36.0); Mean Corpuscular Hemoglobin 34.3 pg (27.0-31.0); Platelet Count 174 thou/uL (130-400); RBC Distribution Width 13.6 % (11.5-14.5); Red Blood Cell (RBC) Count 3.03 mill/uL (4.70-6.10); White Blood Cell (WBC) Count 11.5 thou/uL (4.8-10.8)
[2019-04-06 04:49] LABS: ALT (SGPT) 272 U/L (8-55); AST (SGOT) 173 U/L (5-34); Albumin 3.8 g/dL (3.4-4.8); Alkaline Phosphatase 95 U/L (40-110); Anion Gap 23 mmol/L (10-20); BUN (Urea Nitrogen) 69 mg/dL (8.4-25.7); Bilirubin, Total 0.6 mg/dL (0.2-1.2); Calc. Creatinine Clearance 9 mL/min (70-130); Calcium 8.7 mg/dL (7.8-10.44); Carbon Dioxide 24 mmol/L (23-31); Chloride 93 mmol/L (98-107); Estimated GFR-MDRD 7; Glucose 247 mg/dL (83-110); Potassium 4.8 mmol/L (3.5-5.1); Protein, Total 6.8 g/dL (5.8-8.1); Sodium 135 mmol/L (136-145)
[2019-04-06] MEDS: Heparin 10,000 UNITS/ 10 ML VIAL SLOW IVP SCH (05:50)
[2019-04-06] MEDS: HumaLOG 300 UNITS/3 ML VIAL SC PRN ×2 (05:50→20:25)
[2019-04-06] MEDS ORDERED: Digoxin 0.125 MG TAB PO SCH ×2 (09:00→18:30)
--- NOTE | 2019-04-06 09:05 | PRG ---
DATE OF SERVICE: 04/06/2019 SUBJECTIVE: This morning, he is being dialyzed. He denies any pain, discomfort, or shortness of breath. OBJECTIVE: VITAL SIGNS: His saturations are 100% on room air, blood pressure is 140/64, . CHEST: No wheezing or crackles. CARDIAC: Normal S1 and S2. No gallops. ABDOMEN: No mass. LABORATORY DATA: White count 9,000, H and H unremarkable. BUN and creatinine normal. ASSESSMENT: Coronary artery disease, end-stage renal failure, atrial fibrillation. PLAN: Continue dialysis. He is scheduled for a bypass surgery early next week. Job ID: [id number]
[2019-04-06] MEDS: Famotidine 20 MG TAB PO SCH ×2 (09:41→16:09)
[2019-04-06] MEDS: Aspirin 81 mg Enteric Coated Tablet PO SCH ×2 (09:42→16:09)
[2019-04-06] MEDS: Insulin Glargine 20 UNITS in Pre-Filled Syringe SC SCH (09:44)
[2019-04-06] MEDS ORDERED: Communication Order-Pharmacy FS ONE (10:43)
--- NOTE | 2019-04-06 11:09 | CON ---
DATE OF CONSULTATION: 04/06/2019 SUBJECTIVE: Mr. Chandler is resting comfortably. He is undergoing hemodialysis. No chest pain or pressure. OBJECTIVE: VITAL SIGNS: Blood pressure is 111/66, pulse 86 and it is regular. LUNGS: Clear. CARDIAC: Normal S1, normal S2. ABDOMEN: Soft, nontender. EXTREMITIES: There is no edema. ASSESSMENT: 1. Severe coronary artery disease. 2. Maintaining normal sinus rhythm, on amiodarone. 3. Renal failure, on getting dialyzed. PLAN: Tentatively plan for bypass on Monday. Job ID: [id number]
--- NOTE | 2019-04-06 11:42 | PRG ---
DATE OF SERVICE: 04/06/2019 SUBJECTIVE: Mr. Chandler is a 73-year-old white male, who was admitted for congestive heart failure, [id number] [place], and currently undergoing hemodialysis. He is tolerating said treatment. We are attempting to remove 2 L. I plan to do another dialysis tomorrow short treatment to max out fluid removal prior to the said CABG. No other complaints today. No chest pain or shortness of breath. OBJECTIVE: VITAL SIGNS: Blood pressure 104/71, heart rate 95, and respiratory rate 26. GENERAL: Awake, alert, and comfortable, not in distress. SKIN: Adequate turgor. HEENT: Pinkish conjunctivae. Anicteric sclerae. NECK: No neck mass. No carotid bruits. No JVD. CHEST: No deformities. LUNGS: Clear breath sounds. HEART: Normal sinus rhythm. No murmur. No gallops. No rubs. ABDOMEN: Globular, soft, and nontender. No masses. EXTREMITIES: No edema. No deformities. MEDICATIONS: Medications of April 06, 2019, reviewed. LABORATORY DATA: Laboratories of April 06, 2019; white count 11.5, hemoglobin 10.4. Sodium 135, potassium 4.8, chloride 93, carbon dioxide 24, BUN 69, creatinine 7.51. AST 173, ALT 272, and albumin 3.8. ASSESSMENT AND PLAN: 1. End-stage renal disease, stable, continuing Monday, , and Monday hemodialysis. Fluid removal 2.5 L as tolerated. Our plan is to do extra dialysis tomorrow 2-hour treatment to max out fluid removal. Consider doing pure ultrafiltration. This is anticipation of the planned open-heart surgery this coming Monday. 2. Anemia. Continue weekly Epogen. 3. Congestive heart failure, resolved with fluid removal with dialysis. Overall, agree with current management. Job ID: [id number]
--- NOTE | 2019-04-06 14:41 | PDOC.HOSPP ---
- Subjective Subjective: Says he is doing ok. Has no CP. No complaints. Denies questions. - Objective Vital Signs & Weight: Vital Signs (12 hours) Temp Pulse Resp Pulse Ox 04/06/19 13:29 88 21 H 04/06/19 12:00 98.0 F 04/06/19 08:00 97.7 F 99 04/06/19 07:29 81 20 04/06/19 04:00 98.1 F Weight Admit Weight 167 lb 15.876 oz Weight 154 lb 5.177 oz Most Recent Monitor Data Heart Rate from ECG 86 NIBP 112/65 NIBP BP-Mean 80 Respiration from ECG 30 SpO2 100 I&O: 04/05/19 04/06/19 04/07/19 06:59 06:59 06:59 Intake Total 894 1269 180 Output Total 0 0 Balance 894 1269 180 Result Diagrams: 04/06/19 04:05 04/06/19 04:05 Additional Labs: Accuchecks 04/06/19 04/05/19 04/05/19 12:03 21:39 16:18 POC Glucose 85 297 H 216 H Hospitalist ROS - Medication Medications: Active Medications Generic Name Dose Route Start Last Admin Trade Name Freq PRN Reason Stop Dose Admin Albuterol/Ipratropium 3 ml 03/31/19 19:00 04/06/19 13:29 Duoneb NEB 3 ml [id number] AFTAB Administration Amoxicillin/Clavulanate Potassium 500 mg 04/02/19 14:00 04/04/19 14:10 Augmentin PO 500 mg TuThSa@1400 AFTAB Administration Aspirin 81 mg 04/01/19 09:00 04/06/19 09:42 Ecotrin PO Not Given DAILY [facility] Atorvastatin Calcium 40 mg 04/02/19 21:00 04/05/19 21:34 Lipitor PO 40 mg HS AFTAB Administration Digoxin 0.125 mg 04/05/19 09:00 04/05/19 08:58 Lanoxin PO 0.125 mg Q2D@0900 [facility] Administration Epoetin Nadeem-epbx 7,500 unit 04/02/19 09:15 04/02/19 11:19 Retacrit SC 7,500 unit Q7D [facility] Administration Famotidine 20 mg 04/06/19 09:00 04/06/19 09:41 Pepcid PO Not Given DAILY AFTAB Heparin Sodium (Porcine) 0 units 04/03/19 20:15 04/06/19 05:50 Heparin 1,000 Units/Ml (10 Ml) SLOW IVP 1,920 unit WILLCALL AFTAB Administration Heparin Sodium/Dextrose 500 mls @ 0 mls/hr 03/31/19 18:30 04/05/19 12:06 Heparin 25,000 Units/D5w 500 Ml IVPB 500 mls INF AFTAB Administration Protocol Per Protocol Insulin Glargine 20 units/ 0.2 mls @ 0 mls/hr 04/02/19 09:00 04/06/19 09:44 Miscellaneous Medication SC 0.2 mls QAM AFTAB Administration Amiodarone HCl 450 mg/ 259 mls @ 0 mls/hr 04/03/19 17:00 04/05/19 22:13 Miscellaneous Medication 1 IVPB 259 mls each/ Dextrose/Water INF AFTAB Administration Protocol As Directed Insulin Human Lispro 0 units 04/01/19 12:34 04/06/19 05:50 Humalog SC 3 unit .MILD SLIDING SCALE PRN Administration Mild Correctional Scale Sodium Chloride 10 ml 04/01/19 21:00 04/06/19 09:41 Flush - Normal Saline IVF Not Given Q12HR AFTAB Sodium Chloride 10 ml 04/01/19 18:57 04/02/19 08:57 Flush - Normal Saline IVF 10 ml PRN PRN Administration Saline Flush - Exam General Appearance: NAD, awake alert Heart: RRR, no murmur, no gallops, no rubs, normal peripheral pulses Respiratory: CTAB, no wheezes, no rales, no ronchi, normal chest expansion, no tachypnea, normal percussion Gastrointestinal: soft, non-tender, non-distended, normal bowel sounds, no palpable masses, no hepatomegaly, no splenomegaly, no bruit Extremities: no cyanosis, no clubbing, no edema Neurological: no focal deficits Musculoskeletal: generalized weakness Psychiatric: normal affect, normal behavior, A&O x 3 Hosp A/P (1) NSTEMI (non-ST elevated myocardial infarction) Code(s): I21.4 - NON-ST ELEVATION (NSTEMI) MYOCARDIAL INFARCTION Status: Acute (2) CAD (coronary artery disease) Code(s): I25.10 - ATHSCL HEART DISEASE OF [place] CORONARY ARTERY W/O ANG PCTRS Status: Acute (3) Anemia of renal disease Code(s): D63.1 - ANEMIA IN CHRONIC KIDNEY DISEASE Status: Chronic (4) COPD (chronic obstructive pulmonary disease) Status: Chronic (5) Diabetes mellitus Code(s): E11.9 - TYPE 2 DIABETES MELLITUS WITHOUT COMPLICATIONS Status: Chronic Qualifiers: Diabetes mellitus type: type 2 Diabetes mellitus complication status: with circulatory complication (6) ESRD (end stage renal disease) on dialysis Code(s): N18.6 - END STAGE RENAL DISEASE; Z99.2 - DEPENDENCE ON RENAL DIALYSIS Status: Chronic (7) Hyperlipidemia Code(s): E78.5 - HYPERLIPIDEMIA, UNSPECIFIED Status: Chronic (8) Hypertension Code(s): I10 - ESSENTIAL (PRIMARY) HYPERTENSION Status: Chronic (9) Ischemic cardiomyopathy Code(s): I25.5 - ISCHEMIC CARDIOMYOPATHY Status: Acute (10) BPH with obstruction/lower urinary tract symptoms Code(s): N40.1 - BENIGN PROSTATIC HYPERPLASIA WITH LOWER URINARY TRACT SYMP; N13.8 - OTHER OBSTRUCTIVE AND REFLUX UROPATHY Status: Acute (11) Atrial fibrillation Code(s): I48.91 - UNSPECIFIED ATRIAL FIBRILLATION Status: Acute - Plan Plan for CABG on Monday. Maintaining NSR on amio gtt. Patient understands the risks of the procedure. Anticipating more HD tomorrow to get him as dry as possible prior to surgery. Continue amio gtt, heparin gtt.
[2019-04-06] MEDS: Amiodarone 450 MG, Admixture Fee 1 EACH in Dextrose 5% in Water 250 ML IVPB SCH (15:01)
[2019-04-06] MEDS: Amoxicillin/Potassium Clav 500 MG TAB PO SCH (15:04)
[2019-04-06] MEDS ORDERED: Morphine 2 MG/ML SYRINGE SLOW IVP PRN (20:15)
[2019-04-06] MEDS: Atorvastatin Calcium 40 MG TAB PO SCH (20:16)
[2019-04-06] MEDS: Docusate 100 MG CAP PO SCH (20:16)
[2019-04-07] MEDS: Heparin 25,000 units/D5W 500 ML IVPB SCH (01:45)
[2019-04-07 03:34] LABS: #Eosinphils 0.1 thou/uL (0.0-0.7); #Lymphocytes 1.4 thou/uL (1.20-3.40); #Monocytes 0.7 thou/uL (0.11-0.59); #Neutrophils 9.5 thou/uL (1.40-6.50); %Basophils 0.3 % (0.0-1.0); %Eosinophils 0.7 % (0.0-10.0); %Lymphocytes 11.7 % (21.0-51.0); %Monocytes 5.6 % (0.0-10.0); %Neutrophils 81.7 % (42.0-75.0); Hemoglobin 10.7 g/dL (14.0-18.0); Mean Corpuscular HGB CONC 34.1 g/dL (32.0-36.0); Mean Corpuscular Hemoglobin 33.8 pg (27.0-31.0); Mean Platelet Volume 9.3 fL (7.4-10.4); Platelet Count 204 thou/uL (130-400); RBC Distribution Width 13.6 % (11.5-14.5); Red Blood Cell (RBC) Count 3.16 mill/uL (4.70-6.10); White Blood Cell (WBC) Count 11.6 thou/uL (4.8-10.8)
[2019-04-07 03:40] LABS: INR-International Normal Ratio 1.2; Prothrombin Time 15.5 SEC (12.0-14.7)
[2019-04-07 03:41] LABS: PTT 64.8 SEC (22.9-36.1)
[2019-04-07 03:54] LABS: Hemoglobin A1c 7.2 % (4.0-6.0)
[2019-04-07 03:55] LABS: Anion Gap 17 mmol/L (10-20); BUN (Urea Nitrogen) 35 mg/dL (8.4-25.7); Calc. Creatinine Clearance 12 mL/min (70-130); Calcium 8.6 mg/dL (7.8-10.44); Carbon Dioxide 29 mmol/L (23-31); Chloride 96 mmol/L (98-107); Estimated GFR-MDRD 11; Glucose 134 mg/dL (83-110); Sodium 138 mmol/L (136-145)
[2019-04-07] MEDS: HumaLOG 300 UNITS/3 ML VIAL SC PRN ×2 (06:29→22:13)
[2019-04-07] MEDS: Amiodarone 450 MG, Admixture Fee 1 EACH in Dextrose 5% in Water 250 ML IVPB SCH ×2 (06:30→22:05)
[2019-04-07] MEDS: Digoxin 0.125 MG TAB PO SCH (09:08)
[2019-04-07] MEDS: Insulin Glargine 20 UNITS in Pre-Filled Syringe SC SCH (09:09)
[2019-04-07] MEDS: Aspirin 81 mg Enteric Coated Tablet PO SCH (09:09)
[2019-04-07] MEDS: Docusate 100 MG CAP PO SCH ×2 (09:09→20:24)
[2019-04-07] MEDS: Famotidine 20 MG TAB PO SCH (09:09)
--- NOTE | 2019-04-07 09:24 | PRG ---
DATE OF SERVICE: 04/07/2019 SUBJECTIVE: Mr. Chandler is doing well. He is sitting up in the chair. OBJECTIVE: VITAL SIGNS: Blood pressure 101/53, pulse is sinus with occasional PAC. LUNGS: Clear. CARDIAC: Normal S1, normal S2. ABDOMEN: Soft, nontender. ASSESSMENT: 1. Paroxysmal atrial fibrillation, maintaining sinus rhythm. 2. Depressed left ventricular function. 3. Multivessel coronary artery disease. PLAN: Continue current medical regimen. Tentatively scheduled for surgery tomorrow. Dr. Valencia will resume care tomorrow. Job ID: [id number]
--- NOTE | 2019-04-07 10:26 | PRG ---
DATE OF SERVICE: 04/07/2019 SUBJECTIVE: Rico Chandler this morning is awake, alert, and responsive. He is scheduled for bypass tomorrow. OBJECTIVE: VITAL SIGNS: Blood pressure 101/53, respiratory rate 18, pulse 80. CHEST: No wheezing, crackles. CARDIAC: Normal S1 and S2. No gallops. ABDOMEN: No masses. LABORATORY DATA: Creatinine 5.2. White count 11,000 . ASSESSMENT: Coronary artery disease, renal failure, atrial fibrillation. PLAN: Surgery tomorrow hopefully can wean off the vent soon. Job ID: [id number]
--- NOTE | 2019-04-07 10:34 | RAD ---
Exam: Chest one view HISTORY:Preoperative exam. Patient scheduled for open heart surgery. Comparison: 04/02/2019 FINDINGS: Cardiac silhouette:Enlarged cardiac silhouette. Aorta: Unremarkable Pulmonary vessels: Normal Costophrenic angles: Clear Lines and tubes: Interval removal endotracheal and nasogastric tube. LUNGS: No masses or consolidation. Pneumothorax: None Osseous abnormalities: None IMPRESSION: No acute cardiopulmonary process.
--- NOTE | 2019-04-07 10:50 | PRG ---
DATE OF SERVICE: 04/07/2019 SERVICE: Renal Medicine. SUBJECTIVE: Mr. Chandler is a 73-year-old white male with ESRD, who was admitted for MT/CHF. He underwent a cardiac workup, was found to have 3-vessel disease. We are following up this patient for his maintenance hemodialysis. Due to the planned and anticipated surgery in a.m., the patient will undergo a short 2-hour dialysis to max out fluid removal. No new complaints today. On x-ray, he still has significant amount of fluid. As per request by Cardiothoracic Surgery, we will do a 2-hour hemodialysis today with fluid removal as tolerated. OBJECTIVE: VITAL SIGNS: Blood pressure 108/64, heart rate 81, respiratory rate 26, and pulse ox 95%. GENERAL: Noted to be awake, alert, comfortable, not in distress. SKIN: Adequate turgor. HEENT: Pinkish conjunctivae. Anicteric sclerae. NECK: No neck mass. No carotid bruits. No JVD. CHEST: No deformities. LUNGS: Clear breath sounds. HEART: Normal sinus rhythm. No murmur. No gallops. No rubs. ABDOMEN: Globular. Soft. Nontender. No masses. EXTREMITIES: No edema. No deformities. MEDICATIONS: Of April 07, 2019, reviewed. LABORATORIES: Of April 07, 2019; white count 11.6 and hemoglobin 10.7. Sodium 138, potassium 4, chloride 96, carbon dioxide 29, BUN 35, creatinine 5.25, glucose 134, and calcium 8.6. ASSESSMENT AND PLAN: 1. Anemia - continue weekly Epogen. 2. Status post myocardial infarction/3-vessel coronary artery disease - for planned coronary artery bypass grafting tomorrow. 3. Congestive heart failure, clinically much improved with fluid removal with dialysis. 4. End-stage renal disease, continuing 3 times a week hemodialysis regimen. Extra dialysis today for fluid removal - we will plan to a 2-hour short dialysis run. Job ID: [id number]
--- NOTE | 2019-04-07 14:15 | PDOC.HOSPP ---
- Subjective Encounter Date: 04/07/19 Encounter Time: 14:13 Subjective: Doing well. Awaiting dialysis. No complaints or needs voiced. - Objective Vital Signs & Weight: Vital Signs (12 hours) Temp Pulse Resp Pulse Ox 04/07/19 12:22 87 19 04/07/19 11:14 98.3 F 04/07/19 09:08 84 04/07/19 08:00 98.3 F 99 04/07/19 07:18 84 16 04/07/19 07:00 98.3 F 04/07/19 04:00 98.6 F Weight Admit Weight 167 lb 15.876 oz Weight 151 lb 3.794 oz Most Recent Monitor Data Heart Rate from ECG 84 NIBP 122/64 NIBP BP-Mean 83 Respiration from ECG 14 SpO2 98 I&O: 04/06/19 04/07/19 04/08/19 06:59 06:59 06:59 Intake Total 1269 1154 300 Output Total 0 Balance 1269 1154 300 Result Diagrams: 04/07/19 03:18 04/07/19 03:18 Additional Labs: Accuchecks 04/07/19 04/07/19 04/06/19 11:09 06:30 20:23 POC Glucose 148 H 158 H 247 H 04/06/19 16:07 POC Glucose 76 Hospitalist ROS - Medication Medications: Active Medications Generic Name Dose Route Start Last Admin Trade Name Freq PRN Reason Stop Dose Admin Albuterol/Ipratropium 3 ml 03/31/19 19:00 04/07/19 12:22 Duoneb NEB 3 ml [id number] AFTAB Administration Amoxicillin/Clavulanate Potassium 500 mg 04/02/19 14:00 04/06/19 15:04 Augmentin PO 500 mg TuThSa@1400 AFTAB Administration Aspirin 81 mg 04/01/19 09:00 04/07/19 09:09 Ecotrin PO 81 mg DAILY AFTAB Administration Atorvastatin Calcium 40 mg 04/02/19 21:00 04/06/19 20:16 Lipitor PO 40 mg HS AFTAB Administration Digoxin 0.125 mg 04/05/19 09:00 04/07/19 09:08 Lanoxin PO 0.125 mg Q2D@0900 AFTAB Administration Docusate Sodium 100 mg 04/06/19 21:00 04/07/19 09:09 Colace PO 100 mg BID AFTAB Administration Epoetin Nadeem-epbx 7,500 unit 04/02/19 09:15 04/02/19 11:19 Retacrit SC 7,500 unit Q7D AFTAB Administration Famotidine 20 mg 04/06/19 09:00 04/07/19 09:09 Pepcid PO 20 mg DAILY AFTAB Administration Heparin Sodium (Porcine) 0 units 04/03/19 20:15 04/06/19 05:50 Heparin 1,000 Units/Ml (10 Ml) SLOW IVP 1,920 unit WILLCALL AFTAB Administration Heparin Sodium/Dextrose 500 mls @ 0 mls/hr 03/31/19 18:30 04/07/19 01:45 Heparin 25,000 Units/D5w 500 Ml IVPB 500 mls INF AFTAB Administration Protocol Per Protocol Insulin Glargine 20 units/ 0.2 mls @ 0 mls/hr 04/02/19 09:00 04/07/19 09:09 Miscellaneous Medication SC 0.2 mls QAM AFTAB Administration Amiodarone HCl 450 mg/ 259 mls @ 0 mls/hr 04/03/19 17:00 04/07/19 06:30 Miscellaneous Medication 1 IVPB 259 mls each/ Dextrose/Water INF AFTAB Administration Protocol As Directed Insulin Human Lispro 0 units 04/01/19 12:34 04/07/19 06:29 Humalog SC 2 unit .MILD SLIDING SCALE PRN Administration Mild Correctional Scale Morphine Sulfate 0.5 mg 04/06/19 20:15 04/06/19 20:21 Morphine SLOW IVP 04/07/19 19:49 0.5 mg ONE PRN Administration Mild-Moderate Pain (1-5) Sodium Chloride 10 ml 04/01/19 21:00 04/07/19 09:10 Flush - Normal Saline IVF 10 ml Q12HR AFTAB Administration Sodium Chloride 10 ml 04/01/19 18:57 04/02/19 08:57 Flush - Normal Saline IVF 10 ml PRN PRN Administration Saline Flush - Exam General Appearance: NAD, awake alert Heart: RRR, no murmur, no gallops, no rubs, normal peripheral pulses Respiratory: CTAB, no wheezes, no rales, no ronchi, normal chest expansion, no tachypnea, normal percussion Gastrointestinal: soft, non-tender, non-distended, normal bowel sounds, no palpable masses, no hepatomegaly, no splenomegaly, no bruit Extremities: no cyanosis, no clubbing, no edema Skin: normal turgor Musculoskeletal: normal tone, normal strength, no muscle wasting Psychiatric: normal affect, normal behavior, A&O x 3 Hosp A/P (1) NSTEMI (non-ST elevated myocardial infarction) Code(s): I21.4 - NON-ST ELEVATION (NSTEMI) MYOCARDIAL INFARCTION Status: Acute (2) CAD (coronary artery disease) Code(s): I25.10 - ATHSCL HEART DISEASE OF [place] CORONARY ARTERY W/O ANG PCTRS Status: Acute (3) Anemia of renal disease Code(s): D63.1 - ANEMIA IN CHRONIC KIDNEY DISEASE Status: Chronic (4) COPD (chronic obstructive pulmonary disease) Status: Chronic (5) Diabetes mellitus Code(s): E11.9 - TYPE 2 DIABETES MELLITUS WITHOUT COMPLICATIONS Status: Chronic Qualifiers: Diabetes mellitus type: type 2 Diabetes mellitus complication status: with circulatory complication (6) ESRD (end stage renal disease) on dialysis Code(s): N18.6 - END STAGE RENAL DISEASE; Z99.2 - DEPENDENCE ON RENAL DIALYSIS Status: Chronic (7) Hyperlipidemia Code(s): E78.5 - HYPERLIPIDEMIA, UNSPECIFIED Status: Chronic (8) Hypertension Code(s): I10 - ESSENTIAL (PRIMARY) HYPERTENSION Status: Chronic (9) Ischemic cardiomyopathy Code(s): I25.5 - ISCHEMIC CARDIOMYOPATHY Status: Acute (10) BPH with obstruction/lower urinary tract symptoms Code(s): N40.1 - BENIGN PROSTATIC HYPERPLASIA WITH LOWER URINARY TRACT SYMP; N13.8 - OTHER OBSTRUCTIVE AND REFLUX UROPATHY Status: Acute (11) Atrial fibrillation Code(s): I48.91 - UNSPECIFIED ATRIAL FIBRILLATION Status: Acute - Plan Plan for CABG on Monday. Maintaining NSR on amio gtt. Patient understands the risks of the procedure. Anticipating more HD today to get him as dry as possible prior to surgery. Continue amio gtt, heparin gtt. Followed by Cards, [facility], Pulm/CC, Nephrology
--- NOTE | 2019-04-07 16:13 | EKG ---
Test Reason : Blood Pressure : / mmHG Vent. Rate : 129 BPM Atrial Rate : 340 BPM P-R Int : 000 ms QRS Dur : 108 ms QT Int : 318 ms P-R-T Axes : 000 -23 161 degrees QTc Int : 465 ms Atrial fibrillation with rapid ventricular response with premature ventricular or aberrantly conducte d complexes Anterolateral infarct , age undetermined Marked ST abnormality, possible inferior subendocardial injury Abnormal ECG When compared with ECG of 31-MAR-2019 19:52, Significant changes have occurred Confirmed by DR. Javier JUAREZ ([id number]) on 04/07/2019 4:12:58 PM Referred By: Confirmed By:DR. Javier JUAREZ
[2019-04-07] MEDS ORDERED: Bisacodyl 10 MG SUPP PR PRN (18:49)
[2019-04-07] MEDS: Atorvastatin Calcium 40 MG TAB PO SCH (20:24)
[2019-04-08] MEDS ORDERED: Albumin 5% 500 ML ONE (06:30)
[2019-04-08] MEDS ORDERED: Dexmedetomidine 200 MCG/2 ML VIAL ONE (06:35)
[2019-04-08] MEDS ORDERED: Midazolam HCl 5 mg/5 ml Vial ONE (06:35)
[2019-04-08] MEDS ORDERED: Vecuronium 10 MG VIAL ONE ×2 (06:35→09:39)
[2019-04-08] MEDS ORDERED: Fentanyl 100 MCG/2 ML VIAL ONE (06:35)
[2019-04-08] MEDS ORDERED: Midazolam HCl 2 mg/2 ml Vial ONE (06:35)
[2019-04-08] MEDS ORDERED: Heparin 10,000 UNITS/1 ML VIAL 30,000 UNITS in Sodium Chloride 0.9% 1,000 ML FS SCH (06:45)
[2019-04-08] MEDS ORDERED: CABG-Vancomycin 1 GM in Premix Bag 1 BAG IVPB SCH (06:45)
[2019-04-08] MEDS ORDERED: Insulin Regular 300 UNITS/3 ML VIAL ONE (07:54)
[2019-04-08] MEDS: Aspirin 81 mg Enteric Coated Tablet PO SCH (09:00)
[2019-04-08] MEDS: Docusate 100 MG CAP PO SCH (09:00)
[2019-04-08] MEDS: Famotidine 20 MG TAB PO SCH (09:00)
[2019-04-08] MEDS ORDERED: Sodium Bicarb 50 MEQ/50 ML Abboject 8.4% SYRINGE ONE (09:39)
[2019-04-08] MEDS ORDERED: Magnesium Sulfate 1 GM/2 ML VIAL ONE (09:39)
[2019-04-08] MEDS ORDERED: Glycopyrrolate 0.2 MG/ML 5 ML SYRINGE ONE (09:39)
[2019-04-08] MEDS ORDERED: ePHEDrine/0.9% NaCl/PF SYRINGE 50 mg/10 ml ONE (09:39)
[2019-04-08] MEDS ORDERED: Calcium Chloride 1 GM/10 ML Abboject SYRINGE ONE (09:39)
[2019-04-08] MEDS ORDERED: Ketorolac Tromethamine 30 MG/ML VIAL ONE (09:39)
[2019-04-08] MEDS ORDERED: Papaverine 60 MG/2 ML VIAL ONE (09:39)
[2019-04-08] MEDS ORDERED: Heparin 5,000 UNITS/ML VIAL ONE (09:39)
[2019-04-08] MEDS ORDERED: PHENYLEPHRINE-NS 100 MCG/ML 10 ML SYRINGE ONE (09:39)
[2019-04-08] MEDS ORDERED: Heparin 30,000 units/30 ml VIAL ONE (09:39)
[2019-04-08] MEDS ORDERED: Ondansetron PF 4 MG/2 ML Vial ONE (09:39)
[2019-04-08] MEDS ORDERED: Protamine Sulfate 250 MG/25 ML VIAL ONE (09:39)
[2019-04-08] MEDS ORDERED: Cardioplegic Soln 1,000 ML BAG ONE (09:39)
[2019-04-08] MEDS ORDERED: Potassium Chloride 60 MEQ/30 ML VIAL ONE (09:39)
[2019-04-08] MEDS ORDERED: Albumin 25% 25 GM/100 ML BOT ONE (09:39)
[2019-04-08] MEDS ORDERED: Lidocaine 2% PF 100 mg/5 ml Syringe ONE (09:39)
[2019-04-08] MEDS ORDERED: Nitroglycerin 50 MG/250 ML BOT ONE (09:39)
[2019-04-08] MEDS ORDERED: Aminocaproic Acid 5 GM/20 ML VIAL ONE (09:39)
[2019-04-08] MEDS ORDERED: Thrombin 5000 UNITS/5 ML VIAL ONE (09:39)
[2019-04-08] MEDS ORDERED: Norepinephrine 4 MG/4 ML VIAL ONE (09:39)
[2019-04-08] MEDS ORDERED: Guaifenesin DM 100-10/5 ML UDCUP PO PRN (11:34)
[2019-04-08] MEDS ORDERED: Hetastarch 6% 500 ML 500 ML IVPB PRN (11:34)
[2019-04-08] MEDS ORDERED: Acetaminophen 325 MG TAB PO PRN (11:34)
[2019-04-08] MEDS ORDERED: Morphine 2 MG/ML SYRINGE SLOW IVP PRN ×2 (11:34→21:54)
[2019-04-08] MEDS ORDERED: HYDROcodone/Acetaminophen 5/325 mg Tablet PO PRN ×2 (11:34)
[2019-04-08] MEDS ORDERED: Mag-Al 1200 mg/1200 mg/30 ML UDCUP PO PRN (11:34)
[2019-04-08] MEDS ORDERED: Promethazine HCl 25 MG/ML VIAL IM PRN (11:34)
[2019-04-08] MEDS ORDERED: Bisacodyl 5 MG TAB PO PRN (11:34)
[2019-04-08] MEDS ORDERED: Aspirin Chewable 81 MG TAB PO SCH (11:34)
[2019-04-08] MEDS ORDERED: Potassium Chloride 20 MEQ/100 ML PREMIX BAG IVPB PRN (11:34)
[2019-04-08] MEDS ORDERED: Fentanyl 100 MCG/2 ML VIAL SLOW IVP PRN (11:34)
[2019-04-08] MEDS ORDERED: hydrALAZINE 20 MG/ML VIAL SLOW IVP PRN (11:34)
[2019-04-08] MEDS ORDERED: Nitroglycerin 50 MG/250 ML BOT 250 ML IVPB PRN (11:34)
[2019-04-08] MEDS ORDERED: Bisacodyl 10 MG SUPP PR PRN (11:34)
[2019-04-08] MEDS ORDERED: niCARdipine 25 MG in Sodium Chloride 0.9% 250 ML 250 ML IVPB PRN (11:34)
[2019-04-08] MEDS ORDERED: Post-Op Insulin Drip Protocol IVPB ONE (11:34)
[2019-04-08] MEDS ORDERED: Ondansetron PF 4 MG/2 ML Vial IVP PRN (11:34)
[2019-04-08] MEDS ORDERED: Norepinephrine 8 MG/0.9% NS 250 ML IVPB PRN (11:34)
[2019-04-08] MEDS: Ketorolac Tromethamine 30 MG/ML VIAL IVP SCH ×2 (12:00→19:12)
[2019-04-08] MEDS ORDERED: HUMULIN R 100 UNITS in Sodium Chloride 0.9% 100 ML IVPB SCH (12:28)
[2019-04-08] MEDS ORDERED: Dextrose 5% in Water 1,000 ML IV PRN (12:28)
[2019-04-08] MEDS ORDERED: Dextrose 50% Abboject 50 ML SYRINGE SLOW IVP PRN (12:28)
[2019-04-08] MEDS ORDERED: SUGAMMADEX SODIUM 200 MG/2 ML VIAL ONE (12:30)
--- NOTE | 2019-04-08 13:17 | RAD ---
Exam: Chest one view HISTORY:Status post open heart surgery Comparison: 04/07/2019 FINDINGS: Cardiac silhouette:Upper normal cardiac silhouette Lines and tubes: Mediastinal drainage catheters, left-sided chest tube, left-sided central venous cat heter and sternotomy wires are noted. Aorta: Unremarkable Pulmonary vessels: Normal Costophrenic angles: Clear LUNGS: Patchy interstitial opacities. Pneumothorax: None Osseous abnormalities: None IMPRESSION: Findings compatible with open heart surgery
[2019-04-08 13:26] LABS: Hemoglobin 10.6 g/dL (14.0-18.0); Mean Corpuscular HGB CONC 33.6 g/dL (32.0-36.0); Mean Corpuscular Hemoglobin 33.2 pg (27.0-31.0); Mean Corpuscular Volume 98.6 fL (78.0-98.0); Mean Platelet Volume 9.3 fL (7.4-10.4); Platelet Count 122 thou/uL (130-400); RBC Distribution Width 14.3 % (11.5-14.5)
[2019-04-08] MEDS: Amiodarone 450 MG, Admixture Fee 1 EACH in Dextrose 5% in Water 250 ML IVPB SCH (13:30)
[2019-04-08 13:35] LABS: INR-International Normal Ratio 1.7; PTT 44.3 SEC (22.9-36.1); Prothrombin Time 19.5 SEC (12.0-14.7)
[2019-04-08 13:45] LABS: Band 19 % (5-11); Lymphocytes 4 % (21-51); MDiff Complete? YES; Monocytes 1 % (0-10); Neutrophil 75 % (42-75); Nucleated RBC 2 % (0); Ovalocytes SLIGHT = 2-5 cells (100X) (0-1/hpf); Platelet Morphology Comment Appears Decreased; Polychromasia SLIGHT = 2-3 cells (100X) (0-2/hpf); Reactive Lymphocytes 1 % (0-10); White Blood Cell (WBC) Count 21.1 thou/uL (4.8-10.8)
[2019-04-08] MEDS: Sodium Chloride 0.9% 1,000 ML IV SCH (13:54)
[2019-04-08 13:57] LABS: Anion Gap 20 mmol/L (10-20); BUN (Urea Nitrogen) 35 mg/dL (8.4-25.7); Calc. Creatinine Clearance 13 mL/min (70-130); Calcium 8.3 mg/dL (7.8-10.44); Carbon Dioxide 20 mmol/L (23-31); Chloride 101 mmol/L (98-107); Estimated GFR-MDRD 11; Glucose 127 mg/dL (83-110); Potassium 4.8 mmol/L (3.5-5.1); Sodium 136 mmol/L (136-145)
[2019-04-08] MEDS: HumaLOG 300 UNITS/3 ML VIAL SC PRN (14:06)
--- NOTE | 2019-04-08 15:17 | OP ---
DATE OF PROCEDURE: 04/08/2019 PROCEDURE PERFORMED: Coronary artery bypass grafting x5 with left internal mammary artery to the LAD and sequential reverse greater saphenous vein graft from the aorta to the first obtuse marginal and the second obtuse marginal and separate reverse greater saphenous vein grafts from the aorta to the PDA and from the OM graft to the first diagonal, epicardial maze procedure with ligation of left atrial appendage. A 5-Setswana left common femoral arterial line placement with ultrasound guidance. PREOPERATIVE DIAGNOSES: Coronary artery disease with ischemic cardiomyopathy, status post non-ST elevation myocardial infarction with respiratory failure and acute systolic heart failure. POSTOPERATIVE DIAGNOSES: Coronary artery disease with ischemic cardiomyopathy, status post non-ST elevation myocardial infarction with respiratory failure and acute systolic heart failure. AGRICULTURAL SERVICE WORKER: Gaston An. ANESTHESIA: General endotracheal anesthesia. INDICATIONS: The patient is a 73-year-old diabetic dialysis patient, who for sometime has been having significant dyspnea on exertion. He presented with severe shortness of breath and was in florid pulmonary edema requiring intubation and ventilatory support. His initially mildly elevated troponin dramatically tanner and cardiac catheterization demonstrated severe 3-vessel coronary artery disease including extremely high-grade proximal LAD and circumflex lesions and an LVEF of around 20%. He has been dialyzed to remove some of failure fluid and he has been maintained on heparin drip for a week since his infarction. He is now taken to the operating room for revascularization because of preoperative atrial fibrillation that was associated with a clinical drop in cardiac output manifest as loss of previously palpable pedal pulses. He has opted to not only ligate his left atrial appendage, but perform an epicardial maze procedure. FINDINGS: Pump time 121 minute. Cross-clamp time 62 minutes. Good quality CHIRAG and greater saphenous vein. The LAD where grafted distally was about a 1.5 mm vessel. The LAD was diffusely diseased. The diagonal was about a 1.5 mm vessel. The OM1 was a diffusely diseased vessel and was about 1.5 to 2 mm distally where it was grafted. The OM2 and the circumflex off which it branched palpably were diffusely involved with rock hard plaque, but more distally the vessel was reasonably good quality where grafted proximally it was 2 to 2.5 mm vessel. The PDA was about a 1.5 mm vessel. NARRATIVE REPORT: After informed consent was obtained, the patient was taken to the operating room, placed in supine position on the operating table. After the induction of general anesthesia, the greater saphenous vein was ultrasonographically mapped and marked in the left lower extremity. The common femoral arteries were also identified and marked ultrasonographically. The patient was placed in Trendelenburg and triple lumen central line kit was used to place a left subclavian central line by the Seldinger technique. All 3 ports easily aspirated and flushed. The line was secured. The patient's torso, groins and lower extremities were prepped and draped in sterile fashion. An incision was made above the left knee to expose the greater saphenous vein. It was endoscopically harvested from that point up to the groin and down to a little above the ankle using small stab incisions for the proximal and distal ligation and division points. The vein was prepared for use as a graft and the port site incision was closed in layers of the subcutaneous and subcuticular Vicryl by the Seldinger technique. A 5-Setswana femoral Cook catheter kit was used to place a left femoral arterial line should the patient need a balloon pump support to wean from bypass. It aspirated and flushed easily and it was secured to the skin with suture. A median sternotomy was performed. The left internal mammary artery was harvested as a skeletonized in-situ graft from the level of the xiphoid to beyond the level of the subclavian vein through an extrapleural exposure. In developing the mediastinal reflections of the pleura, the pleura was entered along the lateral aspect of the pericardium and dissecting it off it. An attempt was made to close that rent, but the tissue was too thin for port closure. The patient was heparinized. The mammary was ligated and divided distally. There was good flow through the mammary which dilated up nicely with instillation of intraluminal papaverine solution. The mammary bed was inspected for hemostasis. The CHIRAG retractor was placed with a Odell retractor. The pericardium was opened and marsupialized. The aorta was palpated and it was soft. Double concentric pursestring of 2-0 Ethibond was placed in ascending aorta just beyond the pericardial reflection and a single pursestring was placed in the right atrial appendage. Aortic and venous cannulae were inserted and secured by their pursestrings. The plane between the aorta and the pulmonary artery was developed. Cardiopulmonary bypass was instituted and the patient was systemically cooled. The heart was examined. The vessels to be bypassed were identified. A longitudinal slit was made in the pericardium anterior to the left phrenic nerve through which the mammary could be passed. The pericardial reflections around the left atrium on the right side were lysed as was the plane behind the inferior cava to allow for access to and exposure of the superior and inferior pulmonary veins on the right side. On a beating heart, [employer] radiofrequency device was used to place two parallel lesion sets across the right-sided pulmonary veins as I became confluent with the left atrium. An aortic cross-clamp was applied and cardioplegia was administered through an aortic root needle. When arrest had been achieved, the epicardial Maze device was used to place two lesion sets across the left-sided pulmonary veins in a similar fashion and across the base of the left atrial appendage. The left atrial appendage was then ligated by running two layers of horizontal mattress 3-0 Prolene along its base. Attention was then turned to the distal circumflex system. The 2 OMs were identified. The first OM was a diffusely diseased vessel. It was explored out to where it began to dive intramyocardially where it became much better quality and was still large enough to graft. The OM2 was explored near where it emerged from the AV groove, the sclerotic. It was of reasonably good quality at that level and was a fairly large vessel. The OM2 was opened and then the OM1 was opened distally. Reverse greater saphenous vein was anastomosed end-to-side to the distal OM1 with running Prolene suture and the anastomosis tested by flushing cold cardioplegia down the graft. A longitudinal venotomy was made in the graft to the OM1 corresponding to the location of the OM2 arteriotomy. A oobd-vu-toif anastomosis was then constructed with the anastomosis oriented about two stitches off parallel. Attention was then turned to the PDA, was exposed and opened proximally out beyond the heavy plaquing near its origin. Saphenous vein was anastomosed to it end-to-side and then the diagonals were explored. The first diagonal appeared to be the larger better quality vessel and angiographically both it and the second diagonal appeared to freely communicate with the isolated segment of mid LAD. The first diagonal was grafted end-to-side with saphenous vein and then the LAD was explored. It was opened distally and the mammary was anastomosed to it with running 7-0 Prolene and tacked to the epicardium. The aortic cross-clamp was placed with partial occluding clamp and 2 aortotomies were made in the ascending aorta with a scalpel and punch. The PDA graft was brought along the right side of the heart and anastomosed to the more proximal aortotomy. The diagonal graft was measured and it was not quite long enough to reach the aorta. The sequential circumflex system graft was brought along the left side of the heart and anastomosed to the more distal aortotomy. The partial occluding clamp was removed. The PDA graft was de-aired and bulldog removed from it. The proximal portion of the sequential circumflex system graft was isolated and opened between bulldog clamps and the diagonal graft was anastomosed there with running Prolene. The grafts were allowed to flush and backbleed and suture line secured. The grafts were de-aired and the bulldogs removed from them. The proximal anastomoses including the takeoff of the diagonal graft as wide off the circumflex system graft were marked with small hemoclips. The anastomoses were inspected for hemostasis. The left pleural and posterior pericardial drains were brought out through separate incisions and secured with suture. Right atrial and right ventricular temporary epicardial pacing wires were placed. The patient was then easily from cardiopulmonary bypass. The aortic and venous cannulae were removed and their pursestring secured and protamine was administered. It was not feasible to completely close the pericardium. The pericardium and the thymic fat pad were tacked together to cover up the aorta and proximal portions of the vein grafts and the inferomedial aspects of the pericardium near the diaphragmatic surface were loosely tacked together to affect a very loose pericardial closure. The cut surfaces of the sternum were treated with platelet rich GPS and vancomycin paste and then the sternum reapproximated with #7 stainless steel wires. Soft tissues were irrigated and treated with platelet poor GPS. The fascia was closed over the wires with running #1 Vicryl. Subcutaneous tissue was reapproximated with running 2-0 Vicryl and skin closed with a running 3-0 Vicryl subcuticular suture. The wounds were treated with Dermabond and dressed. The patient was awakened and extubated in the operating room and taken to the intensive care in stable condition. Job ID: [id number]
--- NOTE | 2019-04-08 18:19 | PDOC.CPN ---
- Subjective Date: 04/08/19 Time: 18:17 Interval history: He had CABG earlier today, Now extubated, still groggy. Daughter at bedside. - Review of Systems ROS unobtainable: due to mental status - Objective Allergies/Adverse Reactions: Allergies Allergy/AdvReac Type Severity Reaction Status Date / Time latex Allergy Hives Verified 03/31/19 22:06 Visit Medications: Current Medications Acetaminophen (Tylenol) 650 mg PO Q6H PRN PRN Reason: Headache/Fever/Mild Pain (1-3) Hydrocodone Bitart/Acetaminophen ([place] 5/325) 1 tab PO Q4H PRN PRN Reason: Moderate Pain (4-6) Hydrocodone Bitart/Acetaminophen ([place] 5/325) 2 tab PO Q4H PRN PRN Reason: Severe Pain (7-10) Al Hydroxide/Mg Hydroxide (Maalox) 30 ml PO Q4H PRN PRN Reason: Indigestion Albumin Human (Albumin 5%) 12.5 gm IVPB Q6H PRN PRN Reason: To Maintain SBP> 90 mmHG Stop: 04/09/19 11:35 Albumin Human (Albumin 5%) 25 gm IVPB Q6H PRN PRN Reason: To Maintain SBP > 90 mmHG Stop: 04/09/19 11:35 Amoxicillin/Clavulanate Potassium (Augmentin) 500 mg PO TuThSa@1400 [facility] Last Admin: 04/06/19 15:04 Dose: 500 mg Aspirin (Ecotrin) 81 mg PO DAILY [facility] Last Admin: 04/08/19 09:00 Dose: Not Given Atorvastatin Calcium (Lipitor) 40 mg PO HS [facility] Last Admin: 04/07/19 20:24 Dose: 40 mg Bisacodyl (Dulcolax) 10 mg PO Q12H PRN PRN Reason: Constipation Bisacodyl (Dulcolax) 10 mg CO Q12H PRN PRN Reason: Constipation Dextrose/Water (Dextrose 50%) 25 gm SLOW IVP PRN PRN PRN Reason: PER HYPOGLYCEMIC PROTOCOL Digoxin (Lanoxin) 0.125 mg PO Q2D@0900 [facility] Last Admin: 04/07/19 09:08 Dose: 0.125 mg Docusate Sodium (Colace) 100 mg PO BID [facility] Last Admin: 04/08/19 09:00 Dose: Not Given Epoetin Nadeem-epbx (Retacrit) 7,500 unit SC Q7D [facility] Last Admin: 04/02/19 11:19 Dose: 7,500 unit Famotidine (Pepcid) 20 mg PO DAILY [facility] Last Admin: 04/08/19 09:00 Dose: Not Given Famotidine (Pepcid) 20 mg SLOW IVP DAILY [facility] Fentanyl (Sublimaze) 25 mcg SLOW IVP Q2H PRN PRN Reason: Moderate Pain (4-6) Stop: 04/10/19 07:44 Fentanyl (Sublimaze) 50 mcg SLOW IVP Q2H PRN PRN Reason: Severe Pain (7-10) Stop: 04/10/19 07:44 Glucagon (Glucagon) 1 mg SC PRN PRN PRN Reason: PER HYPOGLYCEMIC PROTOCOL Guaifenesin/Dextromethorphan (Robitussin Dm) 15 ml PO Q4H PRN PRN Reason: Cough Hydralazine HCl (Apresoline) 10 mg SLOW IVP Q6H PRN PRN Reason: To Maintain SBP< 140mmHG Amiodarone HCl 450 mg/Miscellaneous Medication 1 each/ Dextrose/Water 259 mls @ 0 mls/hr IVPB INF [facility]; Protocol Last Admin: 04/08/19 13:30 Dose: 259 mls Hetastarch/Sodium Chloride (Hespan) 500 mls @ 0 mls/hr IVPB PRN PRN PRN Reason: To Maintain SBP > 90mmHg Stop: 04/09/19 07:44 Norepinephrine Bitartrate (Levophed) 250 mls @ 0 mls/hr IVPB PRN PRN; Protocol PRN Reason: To maintain SBP > 90 mmHG Nicardipine HCl 25 mg/ Sodium (Chloride) 260 mls @ 0 mls/hr IVPB INF PRN; Protocol PRN Reason: To Maintain SBP< 140mmHG Nitroglycerin/Dextrose (Nitroglycerin 50 Mg/250 Ml Bot) 250 mls @ 0 mls/hr IVPB PRN PRN; Protocol PRN Reason: To Maintain SBP< 140mmHG Sodium Chloride (Normal Saline 0.9%) 1,000 mls @ 75 mls/hr IV .[id number] [facility] Last Admin: 04/08/19 13:54 Dose: 1,000 mls Insulin Human Regular 100 (units/ Sodium Chloride) 101 mls @ 0 mls/hr IVPB INF [facility]; Protocol Dextrose/Water (D5w) 1,000 mls @ 0 mls/hr IV INF PRN PRN Reason: PRN HYPOGLYCEMIC PROTOCOL Insulin Human Regular (Humulin R) 0 units SC Q4H PRN; Protocol PRN Reason: POST OP SLIDING SCALE Ketorolac Tromethamine (Toradol) 15 mg IVP Q6HR [facility] Stop: 04/11/19 06:01 Last Admin: 04/08/19 12:00 Dose: Not Given Morphine Sulfate (Morphine) 2 mg SLOW IVP Q15MIN PRN PRN Reason: Severe Pain (7-10) Ondansetron HCl (Zofran) 4 mg IVP Q6H PRN PRN Reason: Nausea/Vomiting Potassium Chloride (Kcl) 20 meq IVPB PRN PRN PRN Reason: K level </= 4.0 Promethazine HCl (Phenergan) 6.25 mg IM Q4H PRN PRN Reason: Nausea/Vomiting Sodium Chloride (Flush - Normal Saline) 10 ml IVF Q12HR [facility] Last Admin: 04/08/19 09:00 Dose: Not Given Vital Signs & Weight: Vital Signs Temp Pulse Ox 04/08/19 14:00 97.5 F L 04/08/19 13:00 96 04/08/19 12:58 100 Admit Weight 167 lb 15.876 oz Weight 150 lb 12.8 oz - Physical Exam General: no apparent distress HEENT: mucus membranes moist Neck: supple neck Cardiac: regular rate and rhythm, no murmur Lungs: clear to auscultation Neuro: grossly intact Abdomen: active bowel sounds Extremities: 1+ LE edema Skin: clear Musculoskeletal: normal range of motion - Labs Result Diagrams: 04/08/19 13:08 04/08/19 13:08 Troponin/CKMB CK-MB (CK-2) 75.2 ng/mL (0-6.6) H* 03/31/19 18:07 Troponin I 23.773 ng/mL (< 0.028) H* 03/31/19 20:57 - Telemetry Sinus rhythms and dysrhythmias: sinus rhythm - Assessment/Plan Assessment/Plan: 1. NSTEMI 2. ESRD on HD 3. Acute on chronic systolic heart failure 4. Multivessel CAD 5. Ischemic CM 6. Paroxysmal afib. 7. S/P CABG x 5, BARKLEY to LAD, Sequential SVG to OM1 and OM2, SVG to PDA, SVG from OM graft to Diagonal. 8. S/P Elicardial MAZE and SRINIVAS ligation. PLAN: - Continue ASA/Statin. - Continue Amiodarone drip. - Wean Levophed off as tolerated. - Start PT once pressors weaned. - Critical Care Time Critical care time (mins): 30
[2019-04-08 19:18] LABS: Hemoglobin 10.1 g/dL (14.0-18.0)
[2019-04-08 19:30] LABS: Potassium 5.7 mmol/L (3.5-5.1)
[2019-04-08] MEDS: Fentanyl 100 MCG/2 ML VIAL SLOW IVP PRN ×2 (19:51→22:02)
[2019-04-08] MEDS: Norepinephrine 8 MG in Dextrose 5% in Water 242 ML IVPB PRN (19:54)
[2019-04-08] MEDS ORDERED: Naloxone HCl 0.4 mg/ml Vial IV SCH (20:40)
[2019-04-08] MEDS: DOPamine 400 MG/D5W 250 ML 250 ML ONE ×2 (20:44→20:45)
[2019-04-08] MEDS ORDERED: Naloxone HCl 0.4 mg/ml Vial ONE (20:45)
--- NOTE | 2019-04-08 20:47 | PDOC.HOSPP ---
- Subjective Subjective: Doing ok post-op. Still a little groggy. Extubated. - Objective Vital Signs & Weight: Vital Signs (12 hours) Temp Pulse Ox 04/08/19 20:19 90 L 04/08/19 18:00 98.1 F 04/08/19 16:00 98.1 F 04/08/19 14:00 97.5 F L 04/08/19 13:00 96 04/08/19 12:58 100 Weight Admit Weight 167 lb 15.876 oz Weight 150 lb 12.8 oz Most Recent Monitor Data Heart Rate from ECG 72 NIBP 82/53 NIBP BP-Mean 62 Respiration from ECG 22 SpO2 98 I&O: 04/07/19 04/08/19 04/09/19 06:59 06:59 06:59 Intake Total 1154 910 530 Output Total 153 Balance 1154 910 377 Result Diagrams: 04/08/19 19:12 04/08/19 19:12 Additional Labs: Accuchecks 04/08/19 04/08/19 04/08/19 17:13 13:32 12:13 POC Glucose 80 138 H 97 04/08/19 04/08/19 04/08/19 12:02 10:18 09:44 POC Glucose 95 88 91 04/08/19 04/08/19 04/08/19 09:13 07:54 04:10 POC Glucose 124 H 150 H 101 04/07/19 22:15 POC Glucose 227 H Hospitalist ROS - Medication Medications: Active Medications Generic Name Dose Route Start Last Admin Trade Name Freq PRN Reason Stop Dose Admin Albumin Human 12.5 gm 04/08/19 11:34 04/08/19 18:35 Albumin 5% IVPB 04/09/19 11:35 12.5 gm Q6H PRN Administration To Maintain SBP> 90 mmHG Amoxicillin/Clavulanate Potassium 500 mg 04/02/19 14:00 04/06/19 15:04 Augmentin PO 500 mg TuThSa@1400 [facility] Administration Aspirin 81 mg 04/01/19 09:00 04/08/19 09:00 Ecotrin PO Not Given DAILY [facility] Atorvastatin Calcium 40 mg 04/02/19 21:00 04/07/19 20:24 Lipitor PO 40 mg HS [facility] Administration Docusate Sodium 100 mg 04/06/19 21:00 04/08/19 09:00 Colace PO Not Given BID [facility] Epoetin Nadeem-epbx 7,500 unit 04/02/19 09:15 04/02/19 11:19 Retacrit SC 7,500 unit Q7D [facility] Administration Famotidine 20 mg 04/06/19 09:00 04/08/19 09:00 Pepcid PO Not Given DAILY [facility] Fentanyl 50 mcg 04/08/19 11:34 04/08/19 19:51 Sublimaze SLOW IVP 04/10/19 07:44 50 mcg Q2H PRN Administration Severe Pain (7-10) Amiodarone HCl 450 mg/ 259 mls @ 0 mls/hr 04/03/19 17:00 04/08/19 13:30 Miscellaneous Medication 1 IVPB 259 mls each/ Dextrose/Water INF [facility] Administration Protocol As Directed Sodium Chloride 1,000 mls @ 75 mls/hr 04/08/19 11:34 04/08/19 13:54 Normal Saline 0.9% IV 1,000 mls .[id number] [facility] Administration Norepinephrine Bitartrate 8 mg 250 mls @ 0 mls/hr 04/08/19 19:41 04/08/19 19: 54 / Dextrose/Water IVPB 250 mls PRN PRN Administration to maintain SBP > 90 mmHG Protocol As Directed Ketorolac Tromethamine 15 mg 04/08/19 12:00 04/08/19 19:12 Toradol IVP 04/11/19 06:01 15 mg Q6HR [facility] Administration Sodium Chloride 10 ml 04/01/19 21:00 04/08/19 09:00 Flush - Normal Saline IVF Not Given Q12HR [facility] - Exam General Appearance: NAD, awake alert Neck: supple, symmetric, no JVD, no thyromegaly, no lymphadenopathy, no carotid bruit Heart: RRR, no murmur, no gallops, no rubs, normal peripheral pulses Heart - other findings: Sternotomy. Respiratory: CTAB, no wheezes, no rales, no ronchi, normal chest expansion, no tachypnea, normal percussion Gastrointestinal: soft, non-tender, non-distended, normal bowel sounds, no palpable masses, no hepatomegaly, no splenomegaly, no bruit Extremities: no cyanosis, no clubbing, no edema Extremities - other findings: LLE vein harvest incision. Musculoskeletal: normal tone Psychiatric: somnolent Hosp A/P (1) NSTEMI (non-ST elevated myocardial infarction) Code(s): I21.4 - NON-ST ELEVATION (NSTEMI) MYOCARDIAL INFARCTION Status: Acute (2) CAD (coronary artery disease) Code(s): I25.10 - ATHSCL HEART DISEASE OF [place] CORONARY ARTERY W/O ANG PCTRS Status: Acute (3) Anemia of renal disease Code(s): D63.1 - ANEMIA IN CHRONIC KIDNEY DISEASE Status: Chronic (4) COPD (chronic obstructive pulmonary disease) Status: Chronic (5) Diabetes mellitus Code(s): E11.9 - TYPE 2 DIABETES MELLITUS WITHOUT COMPLICATIONS Status: Chronic Qualifiers: Diabetes mellitus type: type 2 Diabetes mellitus complication status: with circulatory complication (6) ESRD (end stage renal disease) on dialysis Code(s): N18.6 - END STAGE RENAL DISEASE; Z99.2 - DEPENDENCE ON RENAL DIALYSIS Status: Chronic (7) Hyperlipidemia Code(s): E78.5 - HYPERLIPIDEMIA, UNSPECIFIED Status: Chronic (8) Hypertension Code(s): I10 - ESSENTIAL (PRIMARY) HYPERTENSION Status: Chronic (9) Ischemic cardiomyopathy Code(s): I25.5 - ISCHEMIC CARDIOMYOPATHY Status: Acute (10) BPH with obstruction/lower urinary tract symptoms Code(s): N40.1 - BENIGN PROSTATIC HYPERPLASIA WITH LOWER URINARY TRACT SYMP; N13.8 - OTHER OBSTRUCTIVE AND REFLUX UROPATHY Status: Acute (11) Atrial fibrillation Code(s): I48.91 - UNSPECIFIED ATRIAL FIBRILLATION Status: Acute (12) S/P CABG x 5 Code(s): Z95.1 - PRESENCE OF AORTOCORONARY BYPASS GRAFT Status: Acute (13) S/P left atrial appendage ligation Code(s): Z98.890 - OTHER SPECIFIED POSTPROCEDURAL STATES Status: Acute - Plan CABG today. Extubated. Maintaining NSR on amio gtt. Continue hemodialysis Followed by Cards, [facility], Pulm/CC, Nephrology
[2019-04-08 20:48] LABS: Actual Bicarbonate (HCO3a) 21.3 mEq/L (22-28); Base Excess (BEa) -12.2 mEq/L (-2.0 to +3.0); Calcium, Ionized 1.07 mmol/L (1.12-1.30); Carboxyhemoglobin (COHb) 0.3 gm% (0.0-3.0); Hemoglobin (Hb) 10.6 g/dL (14.0-18.0); O2 Tension (PaO2) 85.2 mmHg (> 70.0); Potassium - ABG Lab 7.46 mmol/L (3.70-5.30)
[2019-04-08] MEDS ORDERED: DOBUTamine 500 mg/250 ml 250 ML ONE (20:51)
[2019-04-08] MEDS ORDERED: Sodium Bicarb 50 MEQ/50 ML VIAL IVP SCH ×2 (20:55→22:30)
[2019-04-08] MEDS ORDERED: Sodium Chloride 0.9% 1,000 ML IV SCH (20:55)
[2019-04-08] MEDS ORDERED: Rocuronium Bromide 50 MG/5 ML VIAL IVP SCH (20:55)
[2019-04-08] MEDS: Sodium Bicarb 50 MEQ/50 ML VIAL ONE (20:57)
[2019-04-08 21:27] LABS: Base Excess (BEa) -6.1 mEq/L (-2.0 to +3.0); CO2 Tension 30.3 mmHg (35.0-45.0); Calcium, Ionized 0.92 mmol/L (1.12-1.30); Carboxyhemoglobin (COHb) 0.9 gm% (0.0-3.0); Hemoglobin (Hb) 8.4 g/dL (14.0-18.0); O2 Tension (PaO2) 331.5 mmHg (> 70.0); Potassium - ABG Lab 5.93 mmol/L (3.70-5.30); pH, Arterial 7.39 (7.35-7.45)
[2019-04-08] MEDS ORDERED: Rocuronium Bromide 10 MG/ML (10ML VIAL) IVP SCH (21:30)
[2019-04-08] MEDS ORDERED: Dextrose 50 % In Water 50 ML SYRINGE IV SCH (21:30)
[2019-04-08] MEDS ORDERED: Insulin Regular 300 UNITS/3 ML VIAL IVP SCH (21:30)
[2019-04-08] MEDS: Insulin Regular 300 UNITS/3 ML VIAL SC PRN (21:33)
[2019-04-08] MEDS ORDERED: Calcium Gluc 4.6 MEQ/10 ML (100 MG/ML) SLOW IVP SCH (21:45)
--- NOTE | 2019-04-08 21:45 | RAD ---
Exam: Chest one view: HISTORY: Postop open heart COMPARISON: 04/08/2019 FINDINGS: Endotracheal tube has been placed in satisfactory location. Chest tubes and a left central line are i n place. Mild vascular congestion. No significant pneumothorax. IMPRESSION: Placement of endotracheal tubes since prior exam. Mild vascular congestion. Otherwise stable postoper ative changes. There is improved aeration from the prior study.
--- NOTE | 2019-04-08 21:49 | PDOC.EVN ---
Event Note - Event Note Event Note: INDICATION: Acute Respiratory Failure PROCEDURE DEVELOPMENT GEOLOGIST: Cayden Graham ATTENDING PHYSICIAN: CONSENT: Consent implied, emergent intubation PROCEDURE SUMMARY: A time out was performed. I wore mask with protective eyewear and gloves throughout the procedure. The patient was placed on a highway design engineer including continuous pulse oximetry. Rapid Sequence Intubation was conducted. The patient received 30 mg of Etomidate for induction and 50 mg of Rocuronium for adequate paralysis. Cricoid pressure was maintained from time induction agent was given to time of cuff balloon inflation. Using a glide scope and a size 7.5 cm endotracheal tube with stylet, the patient was intubated on the 1st attempt. The stylet was removed and cuff balloon was inflated. Appropriate endotracheal tube position was confirmed by direct visualization of vocal cord passage, fogging of the tube, CO2 colometric indicator and symmetric breath sounds. The tube was secured at 24 cm at the lips. Post intubation chest x-ray confirms placement above robyn.
[2019-04-08] MEDS ORDERED: Fentanyl BOLUS 250 ML IVPB PRN (21:54)
[2019-04-08] MEDS ORDERED: Propofol 1,000 MG/100 ML VIAL IV PRN (21:54)
[2019-04-08] MEDS ORDERED: DISCONTINUE PREVIOUS NARCOTIC PAIN MEDICATIONS AND BENZODIAZEPINES FS SCH (21:54)
[2019-04-08] MEDS ORDERED: Lorazepam 2 MG/ML VIAL SLOW IVP PRN (21:54)
[2019-04-08] MEDS ORDERED: Propofol BOLUS 1,000 MG/100 ML VIAL IV PRN (21:54)
[2019-04-08 21:58] LABS: Puncture Site ALINE
[2019-04-08 21:59] LABS: ALV-art Gradient 343.625 (0-20)
[2019-04-08 22:00] LABS: pH, Arterial 6.93 (7.35-7.45)
[2019-04-08 22:01] LABS: ALV-art Gradient 140.675 (0-20); CO2 Tension 104.5 mmHg (35.0-45.0); Puncture Site ALINE
[2019-04-08 22:36] LABS: Anion Gap 24 mmol/L (10-20); BUN (Urea Nitrogen) 43 mg/dL (8.4-25.7); Calc. Creatinine Clearance 12 mL/min (70-130); Calcium 6.8 mg/dL (7.8-10.44); Carbon Dioxide 17 mmol/L (23-31); Chloride 104 mmol/L (98-107); Estimated GFR-MDRD 11; Glucose 198 mg/dL (83-110); Potassium 5.7 mmol/L (3.5-5.1); Sodium 139 mmol/L (136-145)
[2019-04-08] MEDS ORDERED: Calcium Chloride 1 GM/10 ML Abboject SYRINGE IVP SCH (22:45)
[2019-04-08] MEDS ORDERED: DOPamine 400 MG/D5W 250 ML 250 ML IVPB SCH (23:00)
[2019-04-08 23:23] LABS: Actual Bicarbonate (HCO3a) 18.5 mEq/L (22-28); Base Excess (BEa) -4.6 mEq/L (-2.0 to +3.0); CO2 Tension 26.8 mmHg (35.0-45.0); Calcium, Ionized 1.08 mmol/L (1.12-1.30); Carboxyhemoglobin (COHb) 0.3 gm% (0.0-3.0); Hemoglobin (Hb) 8.8 g/dL (14.0-18.0); O2 Tension (PaO2) 248.6 mmHg (> 70.0); Potassium - ABG Lab 4.65 mmol/L (3.70-5.30); pH, Arterial 7.46 (7.35-7.45)
[2019-04-08 23:23] LABS: Actual Bicarbonate (HCO3a) 18.5 mEq/L (22-28); Base Excess (BEa) -6.6 mEq/L (-2.0 to +3.0); Calcium, Ionized 0.99 mmol/L (1.12-1.30); Carboxyhemoglobin (COHb) 1.3 gm% (0.0-3.0); Hemoglobin (Hb) 8.7 g/dL (14.0-18.0); O2 Tension (PaO2) 63.8 mmHg (> 70.0); Potassium - ABG Lab 5.12 mmol/L (3.70-5.30); pH, Arterial 7.34 (7.35-7.45)
[2019-04-08 23:24] LABS: Puncture Site A LINE
[2019-04-08 23:25] LABS: Puncture Site A LINE
[2019-04-09 00:44] LABS: Actual Bicarbonate (HCO3a) 20.5 mEq/L (22-28); CO2 Tension 27.6 mmHg (35.0-45.0); Calcium, Ionized 1.06 mmol/L (1.12-1.30); Carboxyhemoglobin (COHb) 0.3 gm% (0.0-3.0); Hemoglobin (Hb) 9.8 g/dL (14.0-18.0); O2 Tension (PaO2) 263.8 mmHg (> 70.0); Potassium - ABG Lab 4.61 mmol/L (3.70-5.30); pH, Arterial 7.49 (7.35-7.45)
[2019-04-09 00:45] LABS: Puncture Site A LINE
[2019-04-09] MEDS: Ketorolac Tromethamine 30 MG/ML VIAL IVP SCH ×4 (01:09→17:37)
[2019-04-09] MEDS: Norepinephrine 8 MG in Dextrose 5% in Water 242 ML IVPB PRN ×2 (01:34→16:19)
[2019-04-09] MEDS: Atorvastatin Calcium 40 MG TAB PO SCH (02:37)
[2019-04-09] MEDS: Docusate 100 MG CAP PO SCH ×2 (02:37→09:06)
[2019-04-09] MEDS: Sodium Chloride 0.9% 1,000 ML IV SCH ×2 (02:38→16:18)
[2019-04-09 04:37] LABS: Anion Gap 21 mmol/L (10-20); BUN (Urea Nitrogen) 49 mg/dL (8.4-25.7); Calc. Creatinine Clearance 11 mL/min (70-130); Calcium 7.7 mg/dL (7.8-10.44); Carbon Dioxide 21 mmol/L (23-31); Chloride 104 mmol/L (98-107); Estimated GFR-MDRD 10; Glucose 159 mg/dL (83-110); Potassium 4.5 mmol/L (3.5-5.1); Sodium 141 mmol/L (136-145)
[2019-04-09 04:38] LABS: Band 22 % (5-11); Hemoglobin 11.2 g/dL (14.0-18.0); Lymphocytes 12 % (21-51); MDiff Complete? YES; Mean Corpuscular HGB CONC 34.4 g/dL (32.0-36.0); Mean Corpuscular Hemoglobin 33.5 pg (27.0-31.0); Mean Corpuscular Volume 97.5 fL (78.0-98.0); Mean Platelet Volume 10.1 fL (7.4-10.4); Monocytes 3 % (0-10); Neutrophil 63 % (42-75); Platelet Count 65 thou/uL (130-400); Platelet Morphology Comment Appears Decreased; RBC Distribution Width 14.1 % (11.5-14.5); Red Blood Cell (RBC) Count 3.34 mill/uL (4.70-6.10); White Blood Cell (WBC) Count 11.4 thou/uL (4.8-10.8)
[2019-04-09] MEDS: Amiodarone 450 MG, Admixture Fee 1 EACH in Dextrose 5% in Water 250 ML IVPB SCH ×2 (04:46→21:10)
[2019-04-09 06:39] LABS: Actual Bicarbonate (HCO3a) 19.9 mEq/L (22-28); Base Excess (BEa) -2.7 mEq/L (-2.0 to +3.0); CO2 Tension 28.3 mmHg (35.0-45.0); Calcium, Ionized 1.04 mmol/L (1.12-1.30); Carboxyhemoglobin (COHb) 0.5 gm% (0.0-3.0); Hemoglobin (Hb) 11.7 g/dL (14.0-18.0); O2 Tension (PaO2) 148.9 mmHg (> 70.0); Potassium - ABG Lab 4.26 mmol/L (3.70-5.30); pH, Arterial 7.47 (7.35-7.45)
--- NOTE | 2019-04-09 08:34 | RAD ---
CHEST ONE VIEW: INDICATIONS: History of open heart surgery. COMPARISON: Prior exam dated 04/08/2019. FINDINGS: ET tube and left subclavian central venous catheter is unchanged from comparison dated 04/08/2019 at 9:08 p.m. Left-sided thoracostomy tube persists. Mild pulmonary vascular congestion remains. Cardiome aylin is stable. Midline mediastinal drain is unchanged. No pneumothorax is evident. IMPRESSION: Stable examination from 04/08/2019 at 9:08 p.m. POS: [facility]
--- NOTE | 2019-04-09 08:35 | PRG ---
DATE OF SERVICE: 04/09/2019 SUBJECTIVE: Mr. Chandler is a 73-year-old white male with ESRD who underwent open-heart surgery yesterday. He was noted to have gone to acute respiratory distress and he was intubated. He was also noted to be on the hypotensive side. He is currently undergoing hemodialysis. We are not removing any fluid due to the low blood pressure. I actually primed the patient with normal saline 250 mL prior to the said dialysis. He is currently on volume repletion as well as on pressor support. OBJECTIVE: VITAL SIGNS: Blood pressure is noted at 102/70, heart rate 66, respiratory rate 19, and pulse oximetry 100%. GENERAL: Sedated, intubated on ventilator support. SKIN: Adequate turgor. HEENT: He has pinkish conjunctivae. Anicteric sclerae. NECK: No neck mass. No carotid bruits. No JVD. CHEST: No deformities. LUNGS: Clear breath sounds. No wheezing. No crackles. HEART: Normal sinus rhythm. No murmur. No gallops. No rubs. ABDOMEN: Globular, soft, nontender. No masses. EXTREMITIES: No edema. No deformities. MEDICATIONS: April 09, 2019, was reviewed. LABORATORY DATA: April 09, 2019, white count 11.4, hemoglobin 11.2, sodium 141, potassium 4.5, chloride 104, carbon dioxide 21, BUN 49, creatinine 5.57. GFR is 10 mL/minute. Calcium 7.7. ASSESSMENT AND PLAN: 1. End stage renal disease. We will continue 3 hour hemodialysis with this patient with minimal or no fluid removal due to the low blood pressure using no heparin. In addition, a prime of 250 mL bolus prior to the said dialysis was given. We will do supportive care. If he does not tolerate dialysis, we can discontinue the dialysis any time. 2. Status post coronary artery bypass graft, stable, currently on pressor and volume repletion due to the low blood pressure. Cardiothoracic Surgery is following. 3. Chronic anemia currently on weekly Epogen. 4. Prognosis remains guarded. Job ID: [id number]
[2019-04-09] MEDS: Aspirin 81 mg Enteric Coated Tablet PO SCH (09:06)
[2019-04-09] MEDS: Famotidine/PF 20 mg/2ml Vial SLOW IVP SCH (09:06)
[2019-04-09] MEDS: Famotidine 20 MG TAB PO SCH (09:07)
[2019-04-09] MEDS: Insulin Regular 300 UNITS/3 ML VIAL SC PRN ×2 (09:09→12:27)
[2019-04-09] MEDS: EPOETIN ALFA-EPBX (ESRD) 4,000 UNIT/ML VIAL SC SCH (09:24)
[2019-04-09 09:32] LABS: ALV-art Gradient 100.925 (0-20); Puncture Site ALINE
--- NOTE | 2019-04-09 11:01 | PRG ---
DATE OF SERVICE: SERVICE: Pulmonary Medicine. INTERVAL HISTORY: Yesterday, the patient was extubated following his CABG based on protocol. Ultimately, he developed hemodynamic instability and cardiac dysfunction. He then developed respiratory failure and was subsequently reintubated. He is on multiple drips today. He remains significantly unstable. His oxygen requirements are quite low, and his demand for minute volume is quite low. Otherwise, there has been no interval change to his condition. PHYSICAL EXAMINATION: VITAL SIGNS: Afebrile, pulse 68, blood pressure 101/40, respirations are 16, saturation 98% on 37% FiO2 and a PEEP of 5. GENERAL: The patient is intubated and sedated. HEENT: Normocephalic and atraumatic. Sclerae white. Conjunctivae pink. Oral mucosa is moist without lesions. LUNGS: Very good air entry. No prolonged expiratory phase or wheezing is appreciated. HEART: Normal rate. Regular. ABDOMEN: Soft, nontender, and nondistended. Bowel sounds are positive. MUSCULOSKELETAL: No cyanosis or clubbing. There is no pitting edema. NEUROLOGIC: Grossly nonfocal. LABORATORY DATA: WBC 11.4, hemoglobin 11.2, platelets 65,000 and significantly downtrending. INR 1.7, creatinine 5.57, BUN 49. Basic metabolic profile is otherwise unremarkable. Calcium 7.7. A pH 7.47, pCO2 of 28, pO2 of 148, corresponding to a saturation of 98%. Ionized calcium 1.04. IMAGING: Chest x-ray demonstrates stable examination. Endotracheal tube and central venous catheter remain in good position. There is a chest tube placement as well as mediastinal drains noted. ASSESSMENT: 1. Acute hypoxic respiratory failure, resolved. 2. Cardiogenic shock. 3. End-stage renal disease. 4. Atrial fibrillation with rapid ventricular rate, previously returned to sinus rhythm, now requiring pacing. 5. Chronic systolic and diastolic heart failure. 6. Liz-MW-dtxpzpeuk myocardial infarction. DISCUSSION AND PLAN: The patient will remain on mechanical ventilation until he is much more hemodynamically stable. Once this occurs, we can consider weaning him. Truth be told, he is on very little support on the ventilator. This was not our source of decompensation yesterday. Critical Care will continue to follow along in this location. I will suspend our daily ABGs and replace potassium today. Critical care time: 30 minutes. Job ID: [id number] MTDD
[2019-04-09] MEDS: Amoxicillin/Potassium Clav 500 MG TAB PO SCH (12:28)
[2019-04-09] MEDS: DOBUTamine 500 mg/250 ml 500 MG in Premix Bag 1 BAG IVPB SCH (13:19)
[2019-04-09] MEDS: Insulin Glargine 20 UNITS in Pre-Filled Syringe SC SCH (15:40)
--- NOTE | 2019-04-09 16:42 | PDOC.HOSPP ---
- Subjective Subjective: Required re-intubation last night. - Objective Vital Signs & Weight: Vital Signs (12 hours) Temp Pulse Resp BP Pulse Ox 04/09/19 16:00 97.9 F 18 04/09/19 15:39 94 102/45 L 04/09/19 14:00 14 04/09/19 13:17 93 89/43 L 04/09/19 12:00 97.8 F 16 04/09/19 10:00 17 04/09/19 09:46 69 16 79/39 L 04/09/19 08:00 15 100 04/09/19 07:00 97.7 F 04/09/19 06:30 67 89/41 L 04/09/19 06:00 17 Weight Admit Weight 167 lb 15.876 oz Weight 168 lb 11.2 oz Most Recent Monitor Data Heart Rate from ECG 92 NIBP 119/57 NIBP BP-Mean 77 Respiration from ECG 19 SpO2 99 I&O: 04/08/19 04/09/19 04/10/19 06:59 06:59 06:59 Intake Total 910 3794.6 500 Output Total 338 145 Balance 910 3456.6 355 Result Diagrams: 04/09/19 04:00 04/09/19 04:00 Additional Labs: Accuchecks 04/09/19 04/09/19 04/09/19 16:20 12:15 09:12 POC Glucose 106 141 H 166 H 04/09/19 04/08/19 04/08/19 04:12 22:17 21:35 POC Glucose 169 H 141 H 62 L 04/08/19 17:13 POC Glucose 80 Hospitalist ROS - Medication Medications: Active Medications Generic Name Dose Route Start Last Admin Trade Name Freq PRN Reason Stop Dose Admin Amoxicillin/Clavulanate Potassium 500 mg 04/02/19 14:00 04/09/19 12:28 Augmentin PO Not Given [id number] AFTAB Aspirin 81 mg 04/01/19 09:00 04/09/19 09:06 Ecotrin PO Not Given DAILY AFTAB Atorvastatin Calcium 40 mg 04/02/19 21:00 04/09/19 02:37 Lipitor PO Not Given HS AFTAB Dextrose/Water 25 gm 04/08/19 12:28 04/08/19 21:33 Dextrose 50% SLOW IVP 25 gm PRN PRN Administration PER HYPOGLYCEMIC PROTOCOL Docusate Sodium 100 mg 04/06/19 21:00 04/09/19 09:06 Colace PO Not Given BID AFTAB Epoetin Nadeem-epbx 7,500 unit 04/02/19 09:15 04/09/19 09:24 Retacrit SC 7,500 unit Q7D AFTAB Administration Famotidine 20 mg 04/06/19 09:00 04/09/19 09:07 Pepcid PO Not Given DAILY AFTAB Famotidine 20 mg 04/09/19 09:00 04/09/19 09:06 Pepcid SLOW IVP 20 mg DAILY AFTAB Administration Amiodarone HCl 450 mg/ 259 mls @ 0 mls/hr 04/03/19 17:00 04/09/19 04:46 Miscellaneous Medication 1 IVPB 259 mls each/ Dextrose/Water INF AFTAB Administration Protocol As Directed Sodium Chloride 1,000 mls @ 75 mls/hr 04/08/19 11:34 04/09/19 16:18 Normal Saline 0.9% IV 1,000 mls .[id number] AFTAB Administration Norepinephrine Bitartrate 8 mg 250 mls @ 0 mls/hr 04/08/19 19:41 04/09/19 16: 19 / Dextrose/Water IVPB 250 mls PRN PRN Administration to maintain SBP > 90 mmHG Protocol As Directed Dobutamine HCl/Dextrose 500 mg 250 mls @ 10.26 mls/hr 04/08/19 23:00 13:19 / Device IVPB 250 mls INF AFTAB Administration Protocol 5 MCG/KG/MIN Insulin Human Regular 0 units 04/08/19 12:28 04/09/19 12:27 Humulin R SC 3 unit Q4H PRN Administration POST OP SLIDING SCALE Protocol Ketorolac Tromethamine 15 mg 04/08/19 12:00 04/09/19 12:27 Toradol IVP 04/11/19 06:01 15 mg Q6HR AFTAB Administration Lorazepam 2 mg 04/08/19 21:54 04/09/19 01:13 Ativan SLOW IVP 05/08/19 21:54 2 mg Q1H PRN Administration Breakthrough agitation Sodium Chloride 10 ml 04/01/19 21:00 04/09/19 09:07 Flush - Normal Saline IVF 10 ml Q12HR AFTAB Administration - Exam General Appearance: NAD, awake alert General - other findings: Intubated. Heart: RRR, no murmur Heart - other findings: Possible subtle rub. Respiratory: CTAB, no wheezes Gastrointestinal: soft, non-distended, normal bowel sounds, no palpable masses Extremities: no cyanosis Psychiatric - other findings: Sedated. Hosp A/P (1) NSTEMI (non-ST elevated myocardial infarction) Code(s): I21.4 - NON-ST ELEVATION (NSTEMI) MYOCARDIAL INFARCTION Status: Acute (2) CAD (coronary artery disease) Code(s): I25.10 - ATHSCL HEART DISEASE OF [place] CORONARY ARTERY W/O ANG PCTRS Status: Acute (3) Anemia of renal disease Code(s): D63.1 - ANEMIA IN CHRONIC KIDNEY DISEASE Status: Chronic (4) COPD (chronic obstructive pulmonary disease) Status: Chronic (5) Diabetes mellitus Code(s): E11.9 - TYPE 2 DIABETES MELLITUS WITHOUT COMPLICATIONS Status: Chronic Qualifiers: Diabetes mellitus type: type 2 Diabetes mellitus complication status: with circulatory complication (6) ESRD (end stage renal disease) on dialysis Code(s): N18.6 - END STAGE RENAL DISEASE; Z99.2 - DEPENDENCE ON RENAL DIALYSIS Status: Chronic (7) Hyperlipidemia Code(s): E78.5 - HYPERLIPIDEMIA, UNSPECIFIED Status: Chronic (8) Hypertension Code(s): I10 - ESSENTIAL (PRIMARY) HYPERTENSION Status: Chronic (9) Ischemic cardiomyopathy Code(s): I25.5 - ISCHEMIC CARDIOMYOPATHY Status: Acute (10) BPH with obstruction/lower urinary tract symptoms Code(s): N40.1 - BENIGN PROSTATIC HYPERPLASIA WITH LOWER URINARY TRACT SYMP; N13.8 - OTHER OBSTRUCTIVE AND REFLUX UROPATHY Status: Acute (11) Atrial fibrillation Code(s): I48.91 - UNSPECIFIED ATRIAL FIBRILLATION Status: Acute (12) S/P CABG x 5 Code(s): Z95.1 - PRESENCE OF AORTOCORONARY BYPASS GRAFT Status: Acute (13) S/P left atrial appendage ligation Code(s): Z98.890 - OTHER SPECIFIED POSTPROCEDURAL STATES Status: Acute (14) Acute respiratory failure with hypoxia Code(s): J96.01 - ACUTE RESPIRATORY FAILURE WITH HYPOXIA Status: Acute - Plan CABG yesterday x 5 vessels. Resp failure, re-intubated. ON pressors. Continue hemodialysis Followed by Cards, [facility], Pulm/CC, Nephrology. Nothing to add at present.
--- NOTE | 2019-04-09 18:36 | PDOC.CPN ---
- Subjective Date: 04/09/19 Time: 18:34 Interval history: He had to be re intubated last night for respiratory distress. His level of support as far as his lungs is concerned is minimal. This was most likely decompensation from the heart perspective. He is now on increasing dose of pressors and innotropes and BP is borderline. He is sedated. and daughter at bedside have been updated. - Review of Systems ROS unobtainable: due to endotracheal tube - Objective Allergies/Adverse Reactions: Allergies Allergy/AdvReac Type Severity Reaction Status Date / Time latex Allergy Hives Verified 03/31/19 22:06 Visit Medications: Current Medications Acetaminophen (Tylenol) 650 mg PO Q6H PRN PRN Reason: Headache/Fever/Mild Pain (1-3) Al Hydroxide/Mg Hydroxide (Maalox) 30 ml PO Q4H PRN PRN Reason: Indigestion Amoxicillin/Clavulanate Potassium (Augmentin) 500 mg PO TuThSa@1400 [facility] Last Admin: 04/09/19 12:28 Dose: Not Given Aspirin (Ecotrin) 81 mg PO DAILY [facility] Last Admin: 04/09/19 09:06 Dose: Not Given Atorvastatin Calcium (Lipitor) 40 mg PO HS [facility] Last Admin: 04/09/19 02:37 Dose: Not Given Bisacodyl (Dulcolax) 10 mg PO Q12H PRN PRN Reason: Constipation Bisacodyl (Dulcolax) 10 mg WA Q12H PRN PRN Reason: Constipation Dextrose/Water (Dextrose 50%) 25 gm SLOW IVP PRN PRN PRN Reason: PER HYPOGLYCEMIC PROTOCOL Last Admin: 04/08/19 21:33 Dose: 25 gm Docusate Sodium (Colace) 100 mg PO BID [facility] Last Admin: 04/09/19 09:06 Dose: Not Given Epoetin Nadeem-epbx (Retacrit) 7,500 unit SC Q7D [facility] Last Admin: 04/09/19 09:24 Dose: 7,500 unit Famotidine (Pepcid) 20 mg PO DAILY [facility] Last Admin: 04/09/19 09:07 Dose: Not Given Famotidine (Pepcid) 20 mg SLOW IVP DAILY [facility] Last Admin: 04/09/19 09:06 Dose: 20 mg Glucagon (Glucagon) 1 mg SC PRN PRN PRN Reason: PER HYPOGLYCEMIC PROTOCOL Guaifenesin/Dextromethorphan (Robitussin Dm) 15 ml PO Q4H PRN PRN Reason: Cough Hydralazine HCl (Apresoline) 10 mg SLOW IVP Q6H PRN PRN Reason: To Maintain SBP< 140mmHG Amiodarone HCl 450 mg/Miscellaneous Medication 1 each/ Dextrose/Water 259 mls @ 0 mls/hr IVPB INF AFTAB; Protocol Last Admin: 04/09/19 04:46 Dose: 259 mls Nicardipine HCl 25 mg/ Sodium (Chloride) 260 mls @ 0 mls/hr IVPB INF PRN; Protocol PRN Reason: To Maintain SBP< 140mmHG Nitroglycerin/Dextrose (Nitroglycerin 50 Mg/250 Ml Bot) 250 mls @ 0 mls/hr IVPB PRN PRN; Protocol PRN Reason: To Maintain SBP< 140mmHG Sodium Chloride (Normal Saline 0.9%) 1,000 mls @ 75 mls/hr IV .[id number] AFTAB Last Admin: 04/09/19 16:18 Dose: 1,000 mls Insulin Human Regular 100 (units/ Sodium Chloride) 101 mls @ 0 mls/hr IVPB INF AFTAB; Protocol Dextrose/Water (D5w) 1,000 mls @ 0 mls/hr IV INF PRN PRN Reason: PRN HYPOGLYCEMIC PROTOCOL Norepinephrine Bitartrate 8 mg (/ Dextrose/Water) 250 mls @ 0 mls/hr IVPB PRN PRN; Protocol PRN Reason: to maintain SBP > 90 mmHG Last Admin: 04/09/19 16:19 Dose: 250 mls Fentanyl Citrate 2,000 mcg/ (Sodium Chloride) 100 mls @ 0 mls/hr IV INF AFTAB; Protocol Stop: 05/08/19 21:54 Fentanyl Citrate (Fentanyl Bolus) 250 mls @ 0 mls/hr IVPB PRN PRN PRN Reason: Breakthrough pain/agitation Stop: 05/08/19 21:54 Dopamine HCl/Dextrose (Dopamine 400 Mg/D5w 250 Ml) 250 mls @ 0 mls/hr IVPB INF AFTAB; Protocol Dobutamine HCl/Dextrose 500 mg (/ Device) 250 mls @ 10.26 mls/hr IVPB INF AFTAB; Protocol Last Admin: 04/09/19 13:19 Dose: 250 mls Insulin Human Regular (Humulin R) 0 units SC Q4H PRN; Protocol PRN Reason: POST OP SLIDING SCALE Last Admin: 04/09/19 12:27 Dose: 3 unit Ketorolac Tromethamine (Toradol) 15 mg IVP Q6HR AFTAB Stop: 04/11/19 06:01 Last Admin: 04/09/19 17:37 Dose: 15 mg Lorazepam (Ativan) 2 mg SLOW IVP Q1H PRN PRN Reason: Breakthrough agitation Stop: 05/08/19 21:54 Last Admin: 04/09/19 01:13 Dose: 2 mg Morphine Sulfate (Morphine) 2 mg SLOW IVP Q1H PRN PRN Reason: BREAKTHROUGH PAIN/Agitation Stop: 05/08/19 21:54 Ondansetron HCl (Zofran) 4 mg IVP Q6H PRN PRN Reason: Nausea/Vomiting Potassium Chloride (Kcl) 20 meq IVPB PRN PRN PRN Reason: K level </= 4.0 Promethazine HCl (Phenergan) 6.25 mg IM Q4H PRN PRN Reason: Nausea/Vomiting Propofol (Diprivan) 1,000 mg IV INF PRN; Protocol PRN Reason: TO ACHIEVE GOAL RASS Stop: 05/08/19 21:54 Propofol (Diprivan Bolus) 20 mg IV Q5MIN PRN PRN Reason: BREAKTHROUGH AGITATION Stop: 05/08/19 21:54 Sodium Chloride (Flush - Normal Saline) 10 ml IVF Q12HR [facility] Last Admin: 04/09/19 09:07 Dose: 10 ml Vital Signs & Weight: Vital Signs Temp Pulse Resp BP Pulse Ox 04/09/19 18:18 90 04/09/19 18:00 15 04/09/19 16:00 97.9 F 18 04/09/19 15:39 94 102/45 L 04/09/19 14:00 14 04/09/19 13:17 93 89/43 L 04/09/19 12:00 97.8 F 16 04/09/19 10:00 17 04/09/19 09:46 69 16 79/39 L 04/09/19 08:00 15 100 04/09/19 07:00 97.7 F Admit Weight 167 lb 15.876 oz Weight 168 lb 11.2 oz - Physical Exam General: other (S/I) HEENT: mucus membranes moist Neck: supple neck Cardiac: regular rate, regular rhythm Lungs: clear to auscultation Neuro: no lateralizing findings, other (Sedated.) Abdomen: active bowel sounds Extremities: no edema Skin: clear Musculoskeletal: no pain - Labs Result Diagrams: 04/09/19 04:00 04/09/19 04:00 Troponin/CKMB CK-MB (CK-2) 75.2 ng/mL (0-6.6) H* 03/31/19 18:07 Troponin I 23.773 ng/mL (< 0.028) H* 03/31/19 20:57 - Telemetry Sinus rhythms and dysrhythmias: other (Paced, underlying afib.) - Assessment/Plan Assessment/Plan: 1. NSTEMI 2. ESRD on HD 3. Acute on chronic systolic heart failure 4. Multivessel CAD 5. Ischemic CM 6. Paroxysmal afib. 7. S/P CABG x 5, BARKLEY to LAD, Sequential SVG to OM1 and OM2, SVG to PDA, SVG from OM graft to Diagonal. 8. S/P Elicardial MAZE and SRINIVAS ligation. PLAN: - Continue supportive care. - Continue ASA/Statin. - Continue Amiodarone drip. - Titrate levophed and dobutamien for MAP above 60. - Had a conversation about other methods of support like ECMO, LVAD, Impella and family is currently not interested in this. Will continue medical support for now. - He is critically ill and would not be unexpected. - Critical Care Time Critical care time (mins): 45
[2019-04-10] MEDS: Docusate 100 MG CAP PO SCH ×3 (00:18→20:27)
[2019-04-10] MEDS: Atorvastatin Calcium 40 MG TAB PO SCH ×2 (00:18→20:26)
[2019-04-10] MEDS: Ketorolac Tromethamine 30 MG/ML VIAL IVP SCH ×4 (00:19→18:28)
[2019-04-10] MEDS: Norepinephrine 8 MG in Dextrose 5% in Water 242 ML IVPB PRN ×5 (00:19→20:31)
[2019-04-10] MEDS: Insulin Regular 300 UNITS/3 ML VIAL SC PRN ×5 (00:23→20:25)
[2019-04-10 04:51] LABS: Phosphorus 3.6 mg/dL (2.3-4.7)
[2019-04-10 04:53] LABS: Anion Gap 20 mmol/L (10-20); BUN (Urea Nitrogen) 40 mg/dL (8.4-25.7); Calc. Creatinine Clearance 17 mL/min (70-130); Calcium 7.2 mg/dL (7.8-10.44); Carbon Dioxide 20 mmol/L (23-31); Chloride 102 mmol/L (98-107); Estimated GFR-MDRD 14; Glucose 150 mg/dL (83-110); Potassium 4.7 mmol/L (3.5-5.1); Sodium 137 mmol/L (136-145)
[2019-04-10] MEDS ORDERED: Ketorolac Tromethamine 30 MG/ML VIAL ONE (04:58)
[2019-04-10] MEDS: Sodium Chloride 0.9% 1,000 ML IV SCH ×2 (05:07→18:29)
[2019-04-10] MEDS: fentaNYL Citrate/PF 2,000 MCG in Sodium Chloride 0.9% 60 ML IV SCH (05:08)
[2019-04-10 05:10] LABS: Band 46 % (5-11); Hemoglobin 10.9 g/dL (14.0-18.0); Hypochromia SLIGHT = 6-15 cells (100X) (0-5/hpf); Lymphocytes 11 % (21-51); MDiff Complete? YES; Mean Corpuscular HGB CONC 33.7 g/dL (32.0-36.0); Mean Corpuscular Hemoglobin 32.8 pg (27.0-31.0); Mean Corpuscular Volume 97.3 fL (78.0-98.0); Metamyelocyte 7 % (0-0); Monocytes 4 % (0-10); Neutrophil 32 % (42-75); Platelet Count 71 thou/uL (130-400); Platelet Morphology Comment Appears Decreased; RBC Distribution Width 14.8 % (11.5-14.5); Red Blood Cell (RBC) Count 3.33 mill/uL (4.70-6.10); White Blood Cell (WBC) Count 15.7 thou/uL (4.8-10.8)
[2019-04-10 07:31] LABS: Actual Bicarbonate (HCO3a) 21.7 mEq/L (22-28); Base Excess (BEa) -2.8 mEq/L (-2.0 to +3.0); CO2 Tension 36.5 mmHg (35.0-45.0); Carboxyhemoglobin (COHb) 1.3 gm% (0.0-3.0); Hemoglobin (Hb) 11.4 g/dL (14.0-18.0); O2 Tension (PaO2) 68.5 mmHg (> 70.0); Potassium - ABG Lab 4.68 mmol/L (3.70-5.30); pH, Arterial 7.39 (7.35-7.45)
[2019-04-10 07:33] LABS: ALV-art Gradient 78.385 (0-20); Puncture Site ALINE
--- NOTE | 2019-04-10 08:36 | RAD ---
PORTABLE CHEST 1 VIEW: DATE: 04/18/2019. TIME: 4:43 a.m. HISTORY: Postop open heart surgery, respiratory failure. FINDINGS/IMPRESSION: There is a suggestion of a small right pleural effusion. The remainder of the exam is otherwise stab le. POS: [facility]
[2019-04-10] MEDS: Aspirin 81 mg Enteric Coated Tablet PO SCH (08:41)
[2019-04-10] MEDS: Famotidine/PF 20 mg/2ml Vial SLOW IVP SCH (08:41)
[2019-04-10] MEDS: Famotidine 20 MG TAB PO SCH (08:42)
--- NOTE | 2019-04-10 09:36 | PRG ---
DATE OF SERVICE: 04/10/2019 SUBJECTIVE: Mr. Chandler is a 73-year-old white male with known history of ESRD, on maintenance hemodialysis, was admitted for congestive heart failure, status post [id number] CT. He has undergone a cardiac cath and subsequent CABG. He is doing well at the present time. Due to the volume overload, we have decided to discuss with his cardiothoracic surgeon to proceed with daily dialysis as tolerated by the patient. The patient is scheduled for a 3-hour hemodialysis today. OBJECTIVE: VITAL SIGNS: Blood pressure is 114/40, heart rate 91, and pulse ox 99%. GENERAL: He is awake and follows simple commands. Intubated on ventilator support. SKIN: Adequate turgor. HEENT: Pinkish conjunctivae. Anicteric sclerae. NECK: No mass. No carotid bruits. No JVD. CHEST: No deformities. LUNGS: Decreased breath sounds. HEART: Normal sinus rhythm. No murmur. No gallops. No rubs. ABDOMEN: Globular, soft, nontender. No masses. CHEST: Positive for chest tube. EXTREMITIES: Trace edema. MEDICATIONS: Medications of April 10, 2019, were reviewed. LABORATORY DATA: Laboratories of April 10, 2019; white count 15.7, hemoglobin 10.9. Sodium 137, potassium 4.7, chloride 102, carbon dioxide 20, BUN 40, creatinine 4.18, calcium 7.2, magnesium 2.0. ASSESSMENT AND PLAN: 1. End-stage renal disease, due to volume overload. We will do daily dialysis with this patient to facilitate his eventual extubation. Fluid removal will be done only as tolerated by the patient. 2. End-stage renal disease, currently on daily hemodialysis due to volume overload. Once the volume status is much improved, we will resume at three times a week hemodialysis with this patient. 3. Status post myocardial infarction. The patient has undergone coronary artery bypass graft. Stable. Surgery and Cardiology are following. 4. Overall prognosis remains guarded. Agree with current management. Job ID: [id number]
[2019-04-10] MEDS: Calcium Gluc 4.6 MEQ/10 ML (100 MG/ML) SLOW IVP SCH ×2 (12:06→15:35)
[2019-04-10] MEDS: Amiodarone 450 MG, Admixture Fee 1 EACH in Dextrose 5% in Water 250 ML IVPB SCH (12:09)
--- NOTE | 2019-04-10 12:46 | PRG ---
DATE OF SERVICE: 04/10/2019 SERVICE: Pulmonary Medicine. INTERVAL HISTORY: The patient is doing poorly from a cardiovascular standpoint. His pressor requirements are going up. He remains paced. At this point, his oxygen requirements are quite high as well. He is not going to be able to liberate from mechanical ventilation until he is hemodynamically stable. He cannot provide any additional elements of the history. Otherwise, there were no significant overnight events. PHYSICAL EXAMINATION: VITAL SIGNS: Afebrile. Pulse 90, blood pressure 100/39, respirations 18, saturation 94% on 37% FiO2 and PEEP of 5. GENERAL: The patient is intubated and sedated. HEENT: Normocephalic and atraumatic. Sclerae white. Conjunctivae pink. Oral mucosa is moist without lesions. LUNGS: Decent air entry. Rhonchi are present. No prolonged expiratory phase or wheezing is appreciated. HEART: Tachycardiac. Regular. ABDOMEN: Soft. Bowel sounds are hypoactive. : No Robbins catheter. NEUROLOGIC: Grossly nonfocal. He is moving all 4 extremities still. LABORATORY DATA: WBC 15.7, hemoglobin 10.9, and platelets 71,000. Band count is increasing to 46% on top of 32% neutrophils. INR 1.7. PH 7.39, pCO2 of 36, pO2 of 68, corresponding to a saturation 93%. Ionized calcium 1.0. Blood cultures x2 are negative to date. Creatinine 4.18, BUN 40. Basic metabolic profile is otherwise unremarkable. IMAGING DATA: Chest x-ray demonstrates right-sided pleural effusion. Endotracheal tube is 4 to 5 cm above the level of the robyn. Lung volumes are quite small. There is a left-sided thoracostomy tube, and mediastinal drains in place. The left subclavian central venous catheter is in good position. ASSESSMENT: 1. Acute hypoxic respiratory failure. 2. Poa-ID-uqrrnaoqv myocardial infarction. 3. Coronary artery disease, status post coronary artery bypass graft. 4. Cardiogenic shock. 5. End-stage renal disease. 6. Atrial fibrillation with rapid ventricular response, previously returned to sinus rhythm. 7. Dtqvb-mh-srrxdae systolic and diastolic heart failure. 8. Right-sided pleural effusion. DISCUSSION AND PLAN: The patient is doing poorly from a cardiovascular standpoint. His cardiac support is actually increasing. We will leave the patient on mechanical ventilation until his cardiovascular status stabilizes. Calcium will be replaced. IV fluids will be minimized. No attempt at removing fluid with dialysis with his blood pressure being this low should be attempted. Critical Care will follow. CRITICAL CARE TIME: 30 minutes. Job ID: [id number] MTDD
--- NOTE | 2019-04-10 12:58 | PDOC.PALCO ---
Palliative Care Consult - Consult Details Requesting Physician: Dr Fink Reason for Consult: family support - Pertinent HPI 73 year old male who presented to the emergency room with shortness of breath. Patient intubated for flash pulmonary edema and admitted to CCU for higher lever of care and medical management. CABG x5 with subsequent reintubation required 04/08 to maintain safe airway. - Social History Smoking Status: Never smoker Smoking: no tobacco exposure Alcohol Use: none Drug Use History: none - Medications MAR Reviewed: Yes - Allergies Allergies/Adverse Reactions: Allergies Allergy/AdvReac Type Severity Reaction Status Date / Time latex Allergy Hives Verified 03/31/19 22:06 - Subjective Currently having dialysis - ROS Non Response: due to endotracheal tube - Objective Vital Signs: Vital Signs - Most Recent Temp Pulse Resp BP Pulse Ox 98.7 F 111 H 19 90/38 L 98 04/10/19 12:00 04/10/19 12:55 04/10/19 12:00 04/10/19 12:55 04/10/19 08:00 Palliative Performance Scale: 20 - Physical Exam Constitutional: encephalitic, mild distress HEENT: moist MMs Deviation from normal: mechanical ventilation Skin: cap refill <2 seconds - Problem List (1) Palliative care encounter Code(s): Z51.5 - ENCOUNTER FOR PALLIATIVE CARE Current Visit: Yes Status: Acute (2) Acute respiratory failure with hypoxia Code(s): J96.01 - ACUTE RESPIRATORY FAILURE WITH HYPOXIA Current Visit: Yes Status: Acute (3) S/P CABG x 5 Code(s): Z95.1 - PRESENCE OF AORTOCORONARY BYPASS GRAFT Current Visit: Yes Status: Acute (4) CKD (chronic kidney disease) stage 4, GFR 15-29 ml/min Code(s): N18.4 - CHRONIC KIDNEY DISEASE, STAGE 4 (SEVERE) Current Visit: No Status: Chronic (5) ESRD (end stage renal disease) on dialysis Code(s): N18.6 - END STAGE RENAL DISEASE; Z99.2 - DEPENDENCE ON RENAL DIALYSIS Current Visit: No Status: Chronic - Plan/Recommendations Plan: Palliative Care consult for family support. forgetful at times and daughter Stella is in from out of town. Daughter is an only child. Dr Fink spoke with them, they are understanding of patient fragile state and that continues to have cardiac decompensation as he is requiring continued pressors and Innotropes. Stella (daughter to return this afternoon) Odell Blanco supervisor roving will follow and support as well. [30] minutes spent on this encounter with >50% of the time in counseling and coordination of care. Thank you for this very appropriate consult.
--- NOTE | 2019-04-10 15:56 | OP ---
DATE OF PROCEDURE: 04/10/2019 PROCEDURE PERFORMED: 5-Danish right femoral arterial line placement. PREOPERATIVE DIAGNOSIS: Coronary artery disease with ischemic cardiomyopathy. POSTOPERATIVE DIAGNOSIS: Coronary artery disease with ischemic cardiomyopathy. ANESTHESIA: 1% lidocaine, local anesthesia. INDICATIONS: The patient is a 73-year-old man, who required re-intubation in the early hours following coronary artery bypass grafting. His hemodynamics as measured have been marginal and there clinically is a discrepancy between the measured pulse via the left radial art line and left arm cuff pressure and the palpable pulses in the groin. FINDINGS: Roughly 30-40 mmHg gradient between the radial A-line, femoral A-line. DESCRIPTION OF PROCEDURE: The patient's right groin was prepped and draped in sterile fashion. 1% lidocaine was used to infiltrate the skin and subcutaneous tissues at the groin crease overlying the palpable right femoral pulse. A 5-Danish RACTIV catheter kit was used to cannulate the right femoral artery. The blood was reasonably dark but pulsatile. The initial attempt at passing a wire was unsuccessful, requiring a second attempt. The wire passed easily when the vessel was again cannulated at an angle and remained good blood return in pulsatility as the needle was laid down more parallel to the leg and the guidewire passed easily as did the catheter over the wire. The wire was removed and a pigtail pressure tubing catheter was affixed to it and flushed in the course of attempting to secure the line. However, it quit flushing and there was lost pulsatility on the waveform. The pigtail was disconnected and there was no back bleeding from the arterial catheter. The guidewire was reinserted resulting in the line backing out a little bit as the wire was advanced and with the line withdrawn slightly, good backbleeding was re-established. The pressure tubing was again connected and flushed and the line was secured and dressed. Job ID: [id number]
[2019-04-10] MEDS: DOBUTamine 500 mg/250 ml 500 MG in Premix Bag 1 BAG IVPB SCH (15:59)
--- NOTE | 2019-04-10 17:34 | PDOC.CPN ---
- Subjective Date: 04/10/19 Time: 17:33 Interval history: He is needing increasingly higher doses of pressors and innotropes. His echo showed EF at 10-15% but no signs of pericardial effusions. - Review of Systems ROS unobtainable: due to endotracheal tube General: denies: fever/chills, weight/appetite/sleep changes, night sweats, fatigue Respiratory: denies: cough, congestion, shortness of breath, exercise intolerance Cardiovascular: denies: chest pain, palpitation, edema, paroxysmal nocturnal dyspnea, orthopnea Gastrointestinal: denies: nausea, vomiting, diarrhea, constipation, abd pain, GI bleeding Musculoskeletal: denies: pain, tenderness, stiffness, swelling, arthritis/ arthralgias Neurological: denies: numbness, syncope, seizure, weakness - Objective Allergies/Adverse Reactions: Allergies Allergy/AdvReac Type Severity Reaction Status Date / Time latex Allergy Hives Verified 03/31/19 22:06 Visit Medications: Current Medications Acetaminophen (Tylenol) 650 mg PO Q6H PRN PRN Reason: Headache/Fever/Mild Pain (1-3) Al Hydroxide/Mg Hydroxide (Maalox) 30 ml PO Q4H PRN PRN Reason: Indigestion Aspirin (Ecotrin) 81 mg PO DAILY [facility] Last Admin: 04/10/19 08:41 Dose: 81 mg Atorvastatin Calcium (Lipitor) 40 mg PO HS [facility] Last Admin: 04/10/19 00:18 Dose: Not Given Bisacodyl (Dulcolax) 10 mg PO Q12H PRN PRN Reason: Constipation Bisacodyl (Dulcolax) 10 mg [place] Q12H PRN PRN Reason: Constipation Dextrose/Water (Dextrose 50%) 25 gm SLOW IVP PRN PRN PRN Reason: PER HYPOGLYCEMIC PROTOCOL Last Admin: 04/08/19 21:33 Dose: 25 gm Docusate Sodium (Colace) 100 mg PO BID [facility] Last Admin: 04/10/19 08:41 Dose: 100 mg Epoetin Nadeem-epbx (Retacrit) 7,500 unit SC Q7D [facility] Last Admin: 04/09/19 09:24 Dose: 7,500 unit Famotidine (Pepcid) 20 mg PO DAILY [facility] Last Admin: 04/10/19 08:42 Dose: Not Given Famotidine (Pepcid) 20 mg SLOW IVP DAILY [facility] Last Admin: 04/10/19 08:41 Dose: 20 mg Glucagon (Glucagon) 1 mg SC PRN PRN PRN Reason: PER HYPOGLYCEMIC PROTOCOL Guaifenesin/Dextromethorphan (Robitussin Dm) 15 ml PO Q4H PRN PRN Reason: Cough Hydralazine HCl (Apresoline) 10 mg SLOW IVP Q6H PRN PRN Reason: To Maintain SBP< 140mmHG Amiodarone HCl 450 mg/Miscellaneous Medication 1 each/ Dextrose/Water 259 mls @ 0 mls/hr IVPB INF [facility]; Protocol Last Admin: 04/10/19 12:09 Dose: 259 mls Nicardipine HCl 25 mg/ Sodium (Chloride) 260 mls @ 0 mls/hr IVPB INF PRN; Protocol PRN Reason: To Maintain SBP< 140mmHG Nitroglycerin/Dextrose (Nitroglycerin 50 Mg/250 Ml Bot) 250 mls @ 0 mls/hr IVPB PRN PRN; Protocol PRN Reason: To Maintain SBP< 140mmHG Sodium Chloride (Normal Saline 0.9%) 1,000 mls @ 75 mls/hr IV .[id number] [facility] Last Admin: 04/10/19 05:07 Dose: 1,000 mls Insulin Human Regular 100 (units/ Sodium Chloride) 101 mls @ 0 mls/hr IVPB INF [facility]; Protocol Dextrose/Water (D5w) 1,000 mls @ 0 mls/hr IV INF PRN PRN Reason: PRN HYPOGLYCEMIC PROTOCOL Norepinephrine Bitartrate 8 mg (/ Dextrose/Water) 250 mls @ 0 mls/hr IVPB PRN PRN; Protocol PRN Reason: to maintain SBP > 90 mmHG Last Admin: 04/10/19 16:37 Dose: 250 mls Fentanyl Citrate 2,000 mcg/ (Sodium Chloride) 100 mls @ 0 mls/hr IV INF [facility]; Protocol Stop: 05/08/19 21:54 Last Admin: 04/10/19 05:08 Dose: 100 mls Fentanyl Citrate (Fentanyl Bolus) 250 mls @ 0 mls/hr IVPB PRN PRN PRN Reason: Breakthrough pain/agitation Stop: 05/08/19 21:54 Dopamine HCl/Dextrose (Dopamine 400 Mg/D5w 250 Ml) 250 mls @ 0 mls/hr IVPB INF [facility]; Protocol Dobutamine HCl/Dextrose 500 mg (/ Device) 250 mls @ 10.26 mls/hr IVPB INF [facility]; Protocol Last Admin: 04/10/19 15:59 Dose: 250 mls Insulin Human Regular (Humulin R) 0 units SC Q4H PRN; Protocol PRN Reason: POST OP SLIDING SCALE Last Admin: 04/10/19 12:11 Dose: 2 unit Ketorolac Tromethamine (Toradol) 15 mg IVP Q6HR [facility] Stop: 04/11/19 06:01 Last Admin: 04/10/19 12:04 Dose: 15 mg Lorazepam (Ativan) 2 mg SLOW IVP Q1H PRN PRN Reason: Breakthrough agitation Stop: 05/08/19 21:54 Last Admin: 04/09/19 01:13 Dose: 2 mg Morphine Sulfate (Morphine) 2 mg SLOW IVP Q1H PRN PRN Reason: BREAKTHROUGH PAIN/Agitation Stop: 05/08/19 21:54 Ondansetron HCl (Zofran) 4 mg IVP Q6H PRN PRN Reason: Nausea/Vomiting Potassium Chloride (Kcl) 20 meq IVPB PRN PRN PRN Reason: K level </= 4.0 Promethazine HCl (Phenergan) 6.25 mg IM Q4H PRN PRN Reason: Nausea/Vomiting Propofol (Diprivan) 1,000 mg IV INF PRN; Protocol PRN Reason: TO ACHIEVE GOAL RASS Stop: 05/08/19 21:54 Propofol (Diprivan Bolus) 20 mg IV Q5MIN PRN PRN Reason: BREAKTHROUGH AGITATION Stop: 05/08/19 21:54 Sodium Chloride (Flush - Normal Saline) 10 ml IVF Q12HR [facility] Last Admin: 04/10/19 08:42 Dose: 10 ml Vital Signs & Weight: Vital Signs Temp Pulse Resp BP Pulse Ox 04/10/19 16:00 97.7 F 15 04/10/19 14:47 109 H 103/31 L 04/10/19 14:00 23 H 04/10/19 12:55 111 H 90/38 L 04/10/19 12:00 98.7 F 19 04/10/19 10:52 90 100/39 L 04/10/19 10:00 31 H 04/10/19 08:00 16 98 04/10/19 07:44 91 114/40 L 04/10/19 07:00 97.5 F L 04/10/19 06:00 16 Admit Weight 167 lb 15.876 oz Weight 168 lb 11.2 oz - Physical Exam HEENT: mucus membranes moist Neck: midline trachea Cardiac: no murmur Lungs: clear to auscultation Neuro: other (Sedation intubated.) Extremities: no edema Skin: clear Musculoskeletal: no fluid collection - Labs Result Diagrams: 04/10/19 04:15 04/10/19 04:15 Troponin/CKMB CK-MB (CK-2) 75.2 ng/mL (0-6.6) H* 03/31/19 18:07 Troponin I 23.773 ng/mL (< 0.028) H* 03/31/19 20:57 - Telemetry Supraventricular conduction: atrial fibrillation - Assessment/Plan Assessment/Plan: 1. NSTEMI 2. ESRD on HD 3. Acute on chronic systolic heart failure 4. Multivessel CAD 5. Ischemic CM 6. Paroxysmal afib, he is currently in afib HR in the 110's. If he continues to decompensate will plan on doing Emergent cardioversion to maintain sinus rhythm. 7. S/P CABG x 5, BARKLEY to LAD, Sequential SVG to OM1 and OM2, SVG to PDA, SVG from OM graft to Diagonal. 8. S/P Epicardial MAZE and SRINIVAS ligation. PLAN: - Continue supportive care. - Continue ASA/Statin. - Continue Amiodarone drip. - Titrate levophed and dobutamien for MAP above 60. - Family is not wanting to increase any type of support with invasive means. Would like to continue pressors and innotropes. He is slowly worsening. - He is critically ill and would not be unexpected. - Critical Care Time Critical care time (mins): 45
[2019-04-10] MEDS ORDERED: WATER IVPB PRN ×2 (21:28→21:32)
[2019-04-10] MEDS ORDERED: NOREPINEPHRINE IVPB PRN ×2 (21:28→21:32)
[2019-04-10] MEDS ORDERED: DEXTROSE 5% IVPB PRN ×2 (21:28→21:32)
[2019-04-11] MEDS: Ketorolac Tromethamine 30 MG/ML VIAL IVP SCH ×2 (00:11→06:17)
[2019-04-11] MEDS: Insulin Regular 300 UNITS/3 ML VIAL SC PRN ×2 (00:15→04:26)
[2019-04-11] MEDS: Norepinephrine 16 MG in Dextrose 5% in Water 234 ML IVPB PRN ×4 (01:07→23:53)
[2019-04-11] MEDS: Amiodarone 450 MG, Admixture Fee 1 EACH in Dextrose 5% in Water 250 ML IVPB SCH ×2 (04:26→20:58)
[2019-04-11 05:11] LABS: Anion Gap 14 mmol/L (10-20); BUN (Urea Nitrogen) 33 mg/dL (8.4-25.7); Calc. Creatinine Clearance 20 mL/min (70-130); Calcium 7.2 mg/dL (7.8-10.44); Carbon Dioxide 23 mmol/L (23-31); Chloride 101 mmol/L (98-107); Estimated GFR-MDRD 17; Glucose 168 mg/dL (83-110); Potassium 4.7 mmol/L (3.5-5.1); Sodium 133 mmol/L (136-145)
[2019-04-11 05:33] LABS: Hemoglobin 10.9 g/dL (14.0-18.0); Mean Corpuscular Hemoglobin 32.6 pg (27.0-31.0); Mean Corpuscular Volume 98.8 fL (78.0-98.0); Mean Platelet Volume 10.7 fL (7.4-10.4); Platelet Count 66 thou/uL (130-400); RBC Distribution Width 14.6 % (11.5-14.5); Red Blood Cell (RBC) Count 3.34 mill/uL (4.70-6.10); White Blood Cell (WBC) Count 9.8 thou/uL (4.8-10.8)
[2019-04-11 05:34] LABS: Band 54 % (5-11); Eosinophils 1 % (0-10); Lymphocytes 7 % (21-51); MDiff Complete? YES; Metamyelocyte 4 % (0-0); Monocytes 4 % (0-10); Neutrophil 30 % (42-75); Nucleated RBC 1 % (0); Platelet Morphology Comment Appears Decreased
[2019-04-11] MEDS: Sodium Chloride 0.9% 1,000 ML IV SCH (06:21)
[2019-04-11 08:02] LABS: Actual Bicarbonate (HCO3a) 20.2 mEq/L (22-28); Base Excess (BEa) -5.9 mEq/L (-2.0 to +3.0); CO2 Tension 41.8 mmHg (35.0-45.0); Calcium, Ionized 1.04 mmol/L (1.12-1.30); Carboxyhemoglobin (COHb) 0.4 gm% (0.0-3.0); Hemoglobin (Hb) 11.4 g/dL (14.0-18.0); Potassium - ABG Lab 4.61 mmol/L (3.70-5.30)
[2019-04-11 08:03] LABS: Puncture Site ALINE
--- NOTE | 2019-04-11 08:03 | RAD ---
Portable frontal chest radiograph: 04/11/2019 COMPARISON: 04/10/2019 HISTORY: Evaluate chest following open heart surgery FINDINGS: Stable endotracheal tube, nasogastric tube, left-sided chest tube, and mediastinal drainage catheter. Stable left vascular catheter and midline sternotomy wires. Persistent increased density noted in both lung bases with partial obscuration of the right and left heart border and right and le ft hemidiaphragms suggesting nonspecific bibasilar airspace disease and pleural fluid. IMPRESSION: No significant interval change. Please see above discussion. Continued follow-up advised.
[2019-04-11] MEDS: Famotidine 20 MG TAB PO SCH (08:24)
[2019-04-11] MEDS: Aspirin 81 mg Enteric Coated Tablet PO SCH (08:24)
[2019-04-11] MEDS: Docusate 100 MG CAP PO SCH ×2 (08:24→20:09)
[2019-04-11] MEDS: Famotidine/PF 20 mg/2ml Vial SLOW IVP SCH (08:45)
[2019-04-11] MEDS ORDERED: Sodium Chloride 0.9% 1,000 ML IV SCH (09:00)
[2019-04-11] MEDS ORDERED: VANCOMYCIN IVPB PRN (09:02)
[2019-04-11] MEDS ORDERED: Vancomycin 1.5 GRAM/300 ML BAG 1.5 GM in Premix Bag 1 BAG IVPB SCH (09:15)
--- NOTE | 2019-04-11 09:18 | PRG ---
DATE OF SERVICE: 04/11/2019 SUBJECTIVE: Mr. Chandler is a 73-year-old white male with ESRD, currently on maintenance hemodialysis. He was admitted for CHF and IN. He underwent CABG. Blood pressure is still noted on the low side. My plan is to do at least 2 hours of UF, so I can remove some fluid, and so that the patient can tolerate the hemodialysis. I will only do 1-hour hemodialysis today. Fluid removal only to be removed as tolerated. OBJECTIVE: VITAL SIGNS: Blood pressure is ranging from 108/77 to 90/70, heart rate 96, respiratory rate is 12. GENERAL: He is noted to be sedated, intubated, on ventilator support. SKIN: Adequate turgor. HEENT: He has pinkish conjunctivae. Anicteric sclerae. No neck mass. No carotid bruits. No JVD. CHEST: No deformities. Positive for chest tube. LUNGS: Decreased breath sounds. HEART: Normal sinus rhythm. No murmur. No gallops or rubs. ABDOMEN: Globular, soft, nontender. No masses. EXTREMITIES: Trace edema. MEDICATIONS: Medications of April 11, 2019, were reviewed. LABORATORY DATA: Laboratories of April 11, 2019, white count 9.8, hemoglobin 10.9. Sodium 133, potassium 4.7, chloride 101, carbon dioxide 23, BUN 33, creatinine 3.57, calcium 7.2. ASSESSMENT AND PLAN: 1. End-stage renal disease. We will plan to do a 3-hour hemodialysis, but the 2 hours will be just done as ultrafiltration. This is done, so he can tolerate the said dialytic intervention. We will attempt fluid removal only as tolerated by the patient. 2. Anemia, stable. Continuing weekly Epogen. 3. Status post coronary artery bypass graft. Continue supportive care. Cardiothoracic Surgery is following. 4. Overall prognosis remains guarded. Job ID: [id number]
[2019-04-11] MEDS ORDERED: Albumin 25% 25 GM/100 ML BOT IVPB SCH (09:30)
--- NOTE | 2019-04-11 09:33 | PRG ---
DATE OF SERVICE: 04/11/2019 SERVICE: Pulmonary Medicine. INTERVAL HISTORY: The patient is doing poorly from a cardiovascular standpoint. He remains on multiple different pressors. He has been holding his own however. He cannot provide any additional elements of the history. He is currently intubated. He is on minimal sedation in order to prevent significant hypotension, but he is able to nod yes and no appropriately. He indicates that he is not currently winded. PHYSICAL EXAMINATION: VITAL SIGNS: Afebrile, pulse 96, blood pressure 108/77, respirations 14, saturation 95% on 65% FiO2 and a PEEP of 7. GENERAL: The patient is intubated and sedated. HEENT: Normocephalic and atraumatic. Sclerae are white. Conjunctivae are pink. Oral mucosa is moist without lesions. LUNGS: Decent air entry on the left. On the right, there is decreased air entry. Crackles are present. No prolonged expiratory phase. HEART: Normal rate. Regular. ABDOMEN: Soft, nontender, nondistended. Bowel sounds are positive. MUSCULOSKELETAL: No cyanosis or clubbing. No pitting in the bilateral lower extremities. NEUROLOGIC: Grossly nonfocal. LABORATORY DATA: Band count continues to climb, neutrophils 30. WBC 9.8, hemoglobin 10.9 and stable. INR 1.7. PH 7.3, pCO2 of 41, PO2 of 153, corresponding to a saturation of 99%. Creatinine 3.57. Basic metabolic profile is otherwise unremarkable, ionized calcium 1.04. Blood cultures x2 are negative. Original blood cultures had 1 out of 2 growing Streptococcus pneumoniae. IMAGING: Chest x-ray demonstrates endotracheal tube is roughly 5 cm above the level of the robyn. Cardiac silhouette is quite enlarged. There is a right-sided layering pleural effusion. No infiltrate is present on the left. Enteric catheter courses below the level of the diaphragm. There are multiple chest tubes, mediastinal drains present. Left subclavian central venous catheter terminates in good position. Echocardiogram demonstrates 10% to 15% ejection fraction. Normal left ventricular wall thickness is noted. However, the left ventricle is quite dilated with global hypokinesis. Underlying rhythm is atrial fibrillation. ASSESSMENT: 1. Acute hypoxic respiratory failure. 2. Pleural effusion, likely simple. 3. Umg-UB-bvlflvfpi myocardial infarction. 4. Coronary artery disease, status post coronary artery bypass graft. 5. Cardiogenic shock. 6. End-stage renal disease. 7. Atrial fibrillation, currently rate controlled. 8. Acute on chronic systolic and diastolic heart failure. DISCUSSION AND PLAN: This patient remains critically ill. Panculture has been sent. I do not believe that the left shift is secondary to infectious process. That being said, I will go ahead and empirically start him on antibiotics. We will continue our ventilator support. No efforts at weaning FiO2 will be performed over the next 24 hours. Pulmonary/Critical Care will continue to follow. Critical care time: 30 minutes. Job ID: [id number] MTDD
[2019-04-11] MEDS: Piperacillin/Tazobactam 2.25 GM in Sodium Chloride 0.9% 100 ML IVPB SCH ×3 (09:49→20:22)
[2019-04-11] MEDS ORDERED: Vancomycin Sliding Scale 1 EACH FS ONE (10:00)
[2019-04-11] MEDS ORDERED: Vancomycin HCl 1.25 GM in Sodium Chloride 0.9% 250 ML 250 ML IVPB SCH (10:00)
[2019-04-11] MEDS ORDERED: Vancomycin HCl 1 GM in Premix Bag 1 BAG IVPB SCH (10:00)
[2019-04-11] MEDS ORDERED: Vancomycin HCl 750 MG in Sodium Chloride 0.9% 250 ML 250 ML IVPB SCH (10:00)
[2019-04-11] MEDS ORDERED: HOLD VANCOMYCIN FOR LEVEL >20 FS SCH (10:00)
[2019-04-11] MEDS ORDERED: Vancomycin HCl 500 MG in Sodium Chloride 0.9% 100 ML IVPB SCH (10:00)
[2019-04-11 13:10] VITALS: BP 111/46
[2019-04-11] MEDS: Micafungin 100 MG in Sodium Chloride 0.9% 100 ML IVPB SCH (13:20)
--- NOTE | 2019-04-11 16:35 | PDOC.HOSPP ---
- Subjective non-verbal Subjective: Patient remains intubated. - Objective Vital Signs & Weight: Vital Signs (12 hours) Temp Pulse Resp BP Pulse Ox 04/11/19 14:00 14 04/11/19 13:09 92 111/46 L 04/11/19 12:00 97.6 F 15 04/11/19 11:00 97.7 F 04/11/19 10:00 16 04/11/19 09:24 97 90/38 L 04/11/19 08:00 97.7 F 14 98 04/11/19 07:47 91 106/41 L 04/11/19 07:00 97.7 F 04/11/19 06:00 15 Weight Admit Weight 167 lb 15.876 oz Weight 177 lb 11.081 oz Most Recent Monitor Data Heart Rate from ECG 75 NIBP 102/63 NIBP BP-Mean 76 Respiration from ECG 13 SpO2 96 I&O: 04/10/19 04/11/19 04/12/19 06:59 06:59 06:59 Intake Total 3566.8 3926.7 Output Total 250 710 250 Balance 3316.8 3216.7 -250 Result Diagrams: 04/11/19 04:15 04/11/19 04:15 Additional Labs: Accuchecks 04/11/19 04/11/19 04/11/19 11:40 08:15 04:23 POC Glucose 82 90 152 H 04/11/19 04/10/19 00:17 20:25 POC Glucose 189 H 158 H Hospitalist ROS - Medication Medications: Active Medications Generic Name Dose Route Start Last Admin Trade Name Freq PRN Reason Stop Dose Admin Albumin Human 25 gm 04/11/19 09:30 04/11/19 09:49 Albumin 25% IVPB 04/11/19 17:00 25 gm NOW [facility] Administration Aspirin 81 mg 04/01/19 09:00 04/11/19 08:24 Ecotrin PO Not Given DAILY [facility] Atorvastatin Calcium 40 mg 04/02/19 21:00 04/10/19 20:26 Lipitor PO 40 mg HS [facility] Administration Dextrose/Water 25 gm 04/08/19 12:28 04/08/19 21:33 Dextrose 50% SLOW IVP 25 gm PRN PRN Administration PER HYPOGLYCEMIC PROTOCOL Docusate Sodium 100 mg 04/06/19 21:00 04/11/19 08:24 Colace PO Not Given BID [facility] Epoetin Nadeem-epbx 7,500 unit 04/02/19 09:15 04/09/19 09:24 Retacrit SC 7,500 unit Q7D [facility] Administration Famotidine 20 mg 04/06/19 09:00 04/11/19 08:24 Pepcid PO Not Given DAILY [facility] Famotidine 20 mg 04/09/19 09:00 04/11/19 08:45 Pepcid SLOW IVP 20 mg DAILY [facility] Administration Amiodarone HCl 450 mg/ 259 mls @ 0 mls/hr 04/03/19 17:00 04/11/19 04:26 Miscellaneous Medication 1 IVPB 259 mls each/ Dextrose/Water INF [facility] Administration Protocol As Directed Fentanyl Citrate 2,000 mcg/ 100 mls @ 0 mls/hr 04/08/19 21:54 04/10/19 05:08 Sodium Chloride IV 05/08/19 21:54 100 mls INF [facility] Administration Protocol Per Protocol Dobutamine HCl/Dextrose 500 mg 250 mls @ 10.26 mls/hr 04/08/19 23:00 15:59 / Device IVPB 250 mls INF [facility] Administration Protocol 5 MCG/KG/MIN Norepinephrine Bitartrate 16 250 mls @ 0 mls/hr 04/11/19 00:45 04/11/19 08:46 mg/ Dextrose/Water IVPB 250 mls PRN PRN Administration to maintain SBP > 90 mmHG Protocol As Directed Piperacillin Sod/Tazobactam 100 mls @ 200 mls/hr 04/11/19 09:00 04/11/19 15: 02 Sod 2.25 gm/ Sodium Chloride IVPB 100 mls 0300,0900,1500,2100 [facility] Administration Micafungin Sodium 100 mg/ 100 mls @ 100 mls/hr 04/11/19 13:00 04/11/19 13:20 Sodium Chloride IVPB 100 mls 1300 [facility] Administration Insulin Human Regular 0 units 04/08/19 12:28 04/11/19 04:26 Humulin R SC 3 unit Q4H PRN Administration POST OP SLIDING SCALE Protocol Lorazepam 2 mg 04/08/19 21:54 04/09/19 01:13 Ativan SLOW IVP 05/08/19 21:54 2 mg Q1H PRN Administration Breakthrough agitation Sodium Chloride 10 ml 04/01/19 21:00 04/11/19 08:45 Flush - Normal Saline IVF 10 ml Q12HR [facility] Administration - Exam General Appearance: NAD, awake alert Heart: RRR, no murmur, no gallops, no rubs, normal peripheral pulses Heart - other findings: Sternotomy incisional wound. Drains. Respiratory: CTAB, no wheezes, no rales, no ronchi, normal chest expansion, no tachypnea Respiratory - other findings: Ventilated Gastrointestinal: soft, non-tender, non-distended, normal bowel sounds, no palpable masses, no hepatomegaly, no splenomegaly, no bruit Skin: normal turgor Neurological - other findings: Sedated Hosp A/P (1) NSTEMI (non-ST elevated myocardial infarction) Code(s): I21.4 - NON-ST ELEVATION (NSTEMI) MYOCARDIAL INFARCTION Status: Acute (2) CAD (coronary artery disease) Code(s): I25.10 - ATHSCL HEART DISEASE OF [place] CORONARY ARTERY W/O ANG PCTRS Status: Acute (3) Anemia of renal disease Code(s): D63.1 - ANEMIA IN CHRONIC KIDNEY DISEASE Status: Chronic (4) COPD (chronic obstructive pulmonary disease) Status: Chronic (5) Diabetes mellitus Code(s): E11.9 - TYPE 2 DIABETES MELLITUS WITHOUT COMPLICATIONS Status: Chronic Qualifiers: Diabetes mellitus type: type 2 Diabetes mellitus complication status: with circulatory complication (6) ESRD (end stage renal disease) on dialysis Code(s): N18.6 - END STAGE RENAL DISEASE; Z99.2 - DEPENDENCE ON RENAL DIALYSIS Status: Chronic (7) Hyperlipidemia Code(s): E78.5 - HYPERLIPIDEMIA, UNSPECIFIED Status: Chronic (8) Hypertension Code(s): I10 - ESSENTIAL (PRIMARY) HYPERTENSION Status: Chronic (9) Ischemic cardiomyopathy Code(s): I25.5 - ISCHEMIC CARDIOMYOPATHY Status: Acute (10) BPH with obstruction/lower urinary tract symptoms Code(s): N40.1 - BENIGN PROSTATIC HYPERPLASIA WITH LOWER URINARY TRACT SYMP; N13.8 - OTHER OBSTRUCTIVE AND REFLUX UROPATHY Status: Acute (11) Atrial fibrillation Code(s): I48.91 - UNSPECIFIED ATRIAL FIBRILLATION Status: Acute (12) S/P CABG x 5 Code(s): Z95.1 - PRESENCE OF AORTOCORONARY BYPASS GRAFT Status: Acute (13) S/P left atrial appendage ligation Code(s): Z98.890 - OTHER SPECIFIED POSTPROCEDURAL STATES Status: Acute (14) Acute respiratory failure with hypoxia Code(s): J96.01 - ACUTE RESPIRATORY FAILURE WITH HYPOXIA Status: Acute - Plan POD 3 CABG x 5 vessels. Post op resp failure, re-intubated. ON pressors, with some weaning possible through today. Continue hemodialysis. Had some fluid removed today. Past two days required some positive fluid balance. Followed by Cards, [facility], Pulm/CC, Nephrology. Spoke with the patient's and daughter yesterday. They affirmed that the patient had a DNAR and they wanted to keep that in place. They want to make certain the focus is on comfort while we continue to work toward making him better. Today they have indicated they do not want any further interventional procedures , but good with continuing pressors and medical management.
[2019-04-11] MEDS: fentaNYL Citrate/PF 2,000 MCG in Sodium Chloride 0.9% 60 ML IV SCH (17:13)
--- NOTE | 2019-04-11 18:30 | PDOC.CPN ---
- Subjective Date: 04/11/19 Time: 18:29 Interval history: He has not had BM's for some time now and abdomen is quiet. He is putting out a dark colored liquid from his NG tube. He continues to need increasing amount of support. - Review of Systems ROS unobtainable: due to endotracheal tube - Objective Allergies/Adverse Reactions: Allergies Allergy/AdvReac Type Severity Reaction Status Date / Time latex Allergy Hives Verified 03/31/19 22:06 Visit Medications: Current Medications Acetaminophen (Tylenol) 650 mg PO Q6H PRN PRN Reason: Headache/Fever/Mild Pain (1-3) Al Hydroxide/Mg Hydroxide (Maalox) 30 ml PO Q4H PRN PRN Reason: Indigestion Aspirin (Ecotrin) 81 mg PO DAILY [facility] Last Admin: 04/11/19 08:24 Dose: Not Given Atorvastatin Calcium (Lipitor) 40 mg PO HS [facility] Last Admin: 04/10/19 20:26 Dose: 40 mg Bisacodyl (Dulcolax) 10 mg PO Q12H PRN PRN Reason: Constipation Bisacodyl (Dulcolax) 10 mg ID Q12H PRN PRN Reason: Constipation Dextrose/Water (Dextrose 50%) 25 gm SLOW IVP PRN PRN PRN Reason: PER HYPOGLYCEMIC PROTOCOL Last Admin: 04/08/19 21:33 Dose: 25 gm Docusate Sodium (Colace) 100 mg PO BID [facility] Last Admin: 04/11/19 08:24 Dose: Not Given Epoetin Nadeem-epbx (Retacrit) 7,500 unit SC Q7D [facility] Last Admin: 04/09/19 09:24 Dose: 7,500 unit Famotidine (Pepcid) 20 mg PO DAILY [facility] Last Admin: 04/11/19 08:24 Dose: Not Given Famotidine (Pepcid) 20 mg SLOW IVP DAILY [facility] Last Admin: 04/11/19 08:45 Dose: 20 mg Glucagon (Glucagon) 1 mg SC PRN PRN PRN Reason: PER HYPOGLYCEMIC PROTOCOL Guaifenesin/Dextromethorphan (Robitussin Dm) 15 ml PO Q4H PRN PRN Reason: Cough Hydralazine HCl (Apresoline) 10 mg SLOW IVP Q6H PRN PRN Reason: To Maintain SBP< 140mmHG Amiodarone HCl 450 mg/Miscellaneous Medication 1 each/ Dextrose/Water 259 mls @ 0 mls/hr IVPB INF AFTAB; Protocol Last Admin: 04/11/19 04:26 Dose: 259 mls Nicardipine HCl 25 mg/ Sodium (Chloride) 260 mls @ 0 mls/hr IVPB INF PRN; Protocol PRN Reason: To Maintain SBP< 140mmHG Nitroglycerin/Dextrose (Nitroglycerin 50 Mg/250 Ml Bot) 250 mls @ 0 mls/hr IVPB PRN PRN; Protocol PRN Reason: To Maintain SBP< 140mmHG Insulin Human Regular 100 (units/ Sodium Chloride) 101 mls @ 0 mls/hr IVPB INF AFTAB; Protocol Dextrose/Water (D5w) 1,000 mls @ 0 mls/hr IV INF PRN PRN Reason: PRN HYPOGLYCEMIC PROTOCOL Fentanyl Citrate 2,000 mcg/ (Sodium Chloride) 100 mls @ 0 mls/hr IV INF AFTAB; Protocol Stop: 05/08/19 21:54 Last Admin: 04/11/19 17:13 Dose: 100 mls Fentanyl Citrate (Fentanyl Bolus) 250 mls @ 0 mls/hr IVPB PRN PRN PRN Reason: Breakthrough pain/agitation Stop: 05/08/19 21:54 Dopamine HCl/Dextrose (Dopamine 400 Mg/D5w 250 Ml) 250 mls @ 0 mls/hr IVPB INF AFTAB; Protocol Dobutamine HCl/Dextrose 500 mg (/ Device) 250 mls @ 10.26 mls/hr IVPB INF AFTAB; Protocol Last Admin: 04/10/19 15:59 Dose: 250 mls Norepinephrine Bitartrate 16 (mg/ Dextrose/Water) 250 mls @ 0 mls/hr IVPB PRN PRN; Protocol PRN Reason: to maintain SBP > 90 mmHG Last Admin: 04/11/19 08:46 Dose: 250 mls Sodium Chloride (Normal Saline 0.9%) 1,000 mls @ 0 mls/hr IV .Q0M AFTAB Piperacillin Sod/Tazobactam (Sod 2.25 gm/ Sodium Chloride) 100 mls @ 200 mls/ hr IVPB 0300,0900,1500,2100 AFTAB Last Admin: 04/11/19 15:02 Dose: 100 mls Vancomycin HCl 1.25 gm/ Sodium (Chloride) 250 mls @ 166.667 mls/hr IVPB WILLCALL AFTAB Vancomycin HCl 1 gm/ Device 200 mls @ 200 mls/hr IVPB WILLCALL AFTAB Vancomycin HCl 750 mg/ Sodium (Chloride) 250 mls @ 250 mls/hr IVPB WILLCALL AFTAB Vancomycin HCl 500 mg/ Sodium (Chloride) 100 mls @ 100 mls/hr IVPB WILLCALL AFTAB Micafungin Sodium 100 mg/ (Sodium Chloride) 100 mls @ 100 mls/hr IVPB 1300 AFTAB Last Admin: 04/11/19 13:20 Dose: 100 mls Milrinone Lactate 20 mg/ (Sodium Chloride) 100 mls @ 0 mls/hr IVPB INF AFTAB; Protocol Insulin Human Regular (Humulin R) 0 units SC Q4H PRN; Protocol PRN Reason: POST OP SLIDING SCALE Last Admin: 04/11/19 04:26 Dose: 3 unit Lorazepam (Ativan) 2 mg SLOW IVP Q1H PRN PRN Reason: Breakthrough agitation Stop: 05/08/19 21:54 Last Admin: 04/09/19 01:13 Dose: 2 mg Miscellaneous Medication (Pharmacy To Dose) 1 each IVPB PRN PRN PRN Reason: Pharmacy to dose Morphine Sulfate (Morphine) 2 mg SLOW IVP Q1H PRN PRN Reason: BREAKTHROUGH PAIN/Agitation Stop: 05/08/19 21:54 Hold Vancomycin For (Level >20) 0 each FS .AT DIALYSIS [facility] Ondansetron HCl (Zofran) 4 mg IVP Q6H PRN PRN Reason: Nausea/Vomiting Potassium Chloride (Kcl) 20 meq IVPB PRN PRN PRN Reason: K level </= 4.0 Promethazine HCl (Phenergan) 6.25 mg IM Q4H PRN PRN Reason: Nausea/Vomiting Propofol (Diprivan) 1,000 mg IV INF PRN; Protocol PRN Reason: TO ACHIEVE GOAL RASS Stop: 05/08/19 21:54 Propofol (Diprivan Bolus) 20 mg IV Q5MIN PRN PRN Reason: BREAKTHROUGH AGITATION Stop: 05/08/19 21:54 Sodium Chloride (Flush - Normal Saline) 10 ml IVF Q12HR [facility] Last Admin: 04/11/19 08:45 Dose: 10 ml Vital Signs & Weight: Vital Signs Temp Pulse Resp BP Pulse Ox 04/11/19 14:00 14 04/11/19 13:09 92 111/46 L 04/11/19 12:00 97.6 F 15 04/11/19 11:00 97.7 F 04/11/19 10:00 16 04/11/19 09:24 97 90/38 L 04/11/19 08:00 97.7 F 14 98 04/11/19 07:47 91 106/41 L 04/11/19 07:00 97.7 F Admit Weight 167 lb 15.876 oz Weight 177 lb 11.081 oz - Physical Exam General: other (S/I) HEENT: normocephaly Neck: supple neck Cardiac: irregularly regular Lungs: bibasilar rales Neuro: other (S/I) Abdomen: decreased bowel sounds Extremities: 1+ LE edema Skin: clear Musculoskeletal: no fluid collection - Labs Result Diagrams: 04/11/19 04:15 04/11/19 04:15 Troponin/CKMB CK-MB (CK-2) 75.2 ng/mL (0-6.6) H* 03/31/19 18:07 Troponin I 23.773 ng/mL (< 0.028) H* 03/31/19 20:57 - Telemetry Supraventricular conduction: atrial fibrillation - Assessment/Plan Assessment/Plan: 1. NSTEMI 2. ESRD on HD 3. Acute on chronic systolic heart failure 4. Multivessel CAD 5. Ischemic CM 6. Paroxysmal afib 7. S/P CABG x 5, BARKLEY to LAD, Sequential SVG to OM1 and OM2, SVG to PDA, SVG from OM graft to Diagonal. 8. S/P Epicardial MAZE and SRINIVAS ligation. 9. Fungemia? 10. Ileus? PLAN: - Afib is rate controlled. - Continue supportive care. - Continue ASA/Statin. - Continue Amiodarone drip. - Continue levophed and dobutamine. WIll add milrinone to improve forward flow. - Family is considering hospice care and withdrawal of care as they do not think he would want any of this. They feel he would not want to even survive this situation an go through the process after the fact as he would have no quality of life. - Agree with Palliative care consult at this time. - Antifungals per Critical care. - Critically ill. would not be unexpected. - Critical Care Time Critical care time (mins): 45
[2019-04-11] MEDS: Atorvastatin Calcium 40 MG TAB PO SCH (20:09)
[2019-04-11] MEDS: DOBUTamine 500 mg/250 ml 500 MG in Premix Bag 1 BAG IVPB SCH (20:25)
[2019-04-11 22:30] LABS: Lactic Acid 4.1 mmol/L (0.5-2.2)
[2019-04-12] MEDS: Piperacillin/Tazobactam 2.25 GM in Sodium Chloride 0.9% 100 ML IVPB SCH ×4 (02:07→20:08)
[2019-04-12 04:47] LABS: Anion Gap 15 mmol/L (10-20); BUN (Urea Nitrogen) 38 mg/dL (8.4-25.7); Calc. Creatinine Clearance 19 mL/min (70-130); Calcium 7.2 mg/dL (7.8-10.44); Carbon Dioxide 23 mmol/L (23-31); Chloride 98 mmol/L (98-107); Estimated GFR-MDRD 15; Glucose 142 mg/dL (83-110); Potassium 5.3 mmol/L (3.5-5.1); Sodium 131 mmol/L (136-145)
[2019-04-12] MEDS: DOBUTamine 500 mg/250 ml 500 MG in Premix Bag 1 BAG IVPB SCH ×2 (05:14→17:43)
[2019-04-12 05:48] LABS: Anisocytosis SLIGHT = 6-15 cells (100X) (0-5/hpf); Band 31 % (5-11); Eosinophils 3 % (0-10); Hemoglobin 9.7 g/dL (14.0-18.0); Lymphocytes 17 % (21-51); MDiff Complete? YES; Mean Corpuscular Hemoglobin 32.6 pg (27.0-31.0); Mean Corpuscular Volume 98.9 fL (78.0-98.0); Mean Platelet Volume 10.8 fL (7.4-10.4); Metamyelocyte 12 % (0-0); Monocytes 16 % (0-10); Myelocyte 3 % (0-0); Neutrophil 18 % (42-75); Nucleated RBC 7 % (0); Platelet Count 47 thou/uL (130-400); Platelet Morphology Comment Appears Decreased; RBC Distribution Width 14.6 % (11.5-14.5); Red Blood Cell (RBC) Count 2.96 mill/uL (4.70-6.10); White Blood Cell (WBC) Count 4.4 thou/uL (4.8-10.8)
[2019-04-12] MEDS: Norepinephrine 16 MG in Dextrose 5% in Water 234 ML IVPB PRN ×3 (06:30→20:09)
[2019-04-12 07:15] LABS: Actual Bicarbonate (HCO3a) 19.2 mEq/L (22-28); Base Excess (BEa) -6.2 mEq/L (-2.0 to +3.0); CO2 Tension 37.5 mmHg (35.0-45.0); Calcium, Ionized 0.96 mmol/L (1.12-1.30); Carboxyhemoglobin (COHb) 0.3 gm% (0.0-3.0); Hemoglobin (Hb) 10.2 g/dL (14.0-18.0); O2 Tension (PaO2) 116.5 mmHg (> 70.0); Potassium - ABG Lab 5.16 mmol/L (3.70-5.30); pH, Arterial 7.33 (7.35-7.45)
[2019-04-12 07:18] LABS: ALV-art Gradient 300.075 (0-20); Puncture Site LINE
--- NOTE | 2019-04-12 08:50 | RAD ---
RADIOGRAPH CHEST 1 VIEW: DATE: 04/12/2019 TIME: 8:11 AM HISTORY: 73-year-old male in respiratory failure. COMPARISON: 04/11/2019 4:43 AM FINDINGS: No change in endotracheal tube, esophagogastric tube, left-sided chest tube, and left subclavian cent ral line. Increased haziness of right lung indicates posteriorly layering right pleural effusion probably increased in volume versus shift in fluid due to positional difference. Opacification of med ial portions of bilateral lower lobes unchanged. No pneumothorax visualized. IMPRESSION: 1. Mild interval increase in right pleural effusion. 2. No other interval change.
[2019-04-12] MEDS ORDERED: Calcium Chloride 13.6 MEQ in Sodium Chloride 0.9% 100 ML IVPB SCH (09:00)
[2019-04-12] MEDS ORDERED: Calcium Chloride 1 GM/10 ML Abboject SYRINGE IVP SCH (09:00)
[2019-04-12] MEDS: Famotidine/PF 20 mg/2ml Vial SLOW IVP SCH (09:32)
[2019-04-12] MEDS: Docusate 100 MG CAP PO SCH ×2 (09:32→20:08)
[2019-04-12] MEDS: Aspirin 81 mg Enteric Coated Tablet PO SCH (09:32)
[2019-04-12] MEDS: Famotidine 20 MG TAB PO SCH (09:33)
--- NOTE | 2019-04-12 09:51 | PRG ---
DATE OF SERVICE: 04/12/2019 SUBJECTIVE: Mr. Chandler is a 73-year-old white male with ESRD and followed up by the [facility] for his maintenance hemodialysis. He was admitted for an VT/CHF. He underwent CABG. Since his CABG, he has not done well. He remained hypotensive, was placed on several pressor supports. He was successfully extubated, currently still intubated. Per family's wishes, they would like to consider hospice care with this patient. Plan is to extubate him tomorrow. He has been receiving daily dialysis. There is no indication for any dialytic intervention today. OBJECTIVE: VITAL SIGNS: Blood pressure 107/47, heart rate 102, respiratory rate 18, pulse ox 98%. GENERAL: The patient is sedated, intubated on ventilator support. SKIN: Adequate turgor. HEENT: He has pinkish conjunctivae. Anicteric sclerae. NECK: No neck mass. No carotid bruits. No JVD. CHEST: No deformities. LUNGS: Decreased breath sounds. HEART: Normal sinus rhythm. No murmurs. No gallops. No rubs. ABDOMEN: Globular, soft, nontender. No masses. EXTREMITIES: No edema. MEDICATIONS: Medications of April 12, 2019, were reviewed. LABORATORY DATA: Laboratories of April 12, 2019; white count 4.4, hemoglobin 9.7. Sodium 131, potassium 5.3, chloride 98, carbon dioxide 23, BUN 38, creatinine 3.94, calcium 7.2. Lactic acid is 4.1. ASSESSMENT AND PLAN: 1. End-stage renal disease. Currently, the patient will be withdrawn from dialysis due to the family's wish to place him on hospice care. No indication for an emergent hemodialysis today. The plan is to have him extubated tomorrow. 2. Status post coronary artery bypass graft, not doing well, unable to extubate. 3. Still dependent on pressor support. Job ID: [id number]
--- NOTE | 2019-04-12 10:35 | PRG ---
DATE OF SERVICE: 04/12/2019 SERVICE: Pulmonary Medicine. INTERVAL HISTORY: The patient is doing very poorly from mentation standpoint. At this point, he has an upward gaze present, he is no longer following any commands. He is not awake. He has a very minimal grimace with noxious stimuli. Otherwise, he is essentially nonresponsive. He is overbreathing the ventilator. His pupils are not currently functioning. He is just on a little bit of fentanyl. PHYSICAL EXAMINATION: VITAL SIGNS: Afebrile. Pulse 102, blood pressure 107/47, respirations 18, saturation 98%, currently on 50% FiO2 and a PEEP of 7. GENERAL: The patient is intubated. He is under the influence of a little sedation. That being said, he is poorly responsive today. HEENT: Normocephalic and atraumatic. Sclerae are white. Conjunctivae are pink. Oral mucosa is moist without lesions. LUNGS: Decent air entry. Dependent crackles are present. No prolonged expiratory phase or wheezing is appreciated. HEART: Normal rate. Regular. ABDOMEN: Soft, nontender, nondistended. Bowel sounds are absent. MUSCULOSKELETAL: No clubbing. Cyanosis is present throughout bilateral upper and lower extremities. No pitting edema throughout. NEUROLOGIC: He is not following commands. He does not withdraw from noxious stimuli, though there is a very subtle grimace. He has an upward and right gaze preference. Pupils currently are nonreactive, though he is overbreathing the ventilator. I cannot elicit a cough from him with deep suctioning. LABORATORY DATA: WBC 4.4, hemoglobin 9.7, platelets 47,000. Neutrophils are 18 on top of band of 31. PH 7.33, pCO2 of 37, PO2 of 116, corresponding to a saturation of 98%. Potassium 5.3. Basic metabolic profile is otherwise unremarkable. Lactate is gently up trending to 4.1. Strep was growing in the original blood cultures. Repeat blood cultures are negative at 5 days. Gram-positive cocci in clusters are growing from the sputum with many white blood cells present. IMAGING: Chest x-ray demonstrates endotracheal tube is in good position. There is a right pleural parenchymal density present. It appears that there is a layering effusion on the right. There is likely atelectasis in the left lung. Lung volumes are quite small. Left subclavian central venous catheter is in good position. The endotracheal tube is about 4 to 5 cm above the level of the robyn in stable position. Mediastinal drains and chest tube are once again noted. No evidence of pneumothorax is present. ASSESSMENT: 1. Acute hypoxic respiratory failure. 2. Pleural effusion, likely layering. 3. [id number] myocardial infarction. 4. Coronary artery disease, status post coronary artery bypass graft. 5. Healthcare-associated pneumonia, possible secondary to Staph. 6. Cardiogenic shock. 7. End-stage renal disease. 8. Atrial fibrillation, currently rate controlled. 9. Acute on chronic systolic and diastolic heart failure. DISCUSSION AND PLAN: The patient remains critically ill. He is unlikely to make a recovery unless cardiac output picks up a touch. His new neurologic exam features are quite alarming. Sedation will be interrupted altogether. We will continue support on the ventilator and dialysis. Empiric antibiotics have been initiated for possible lung infection. We have a report that possibly blood cultures are growing fungal species. That is yet to be officially resulted. As such, micafungin was also initially started. The patient is too sick to consider weaning from mechanical ventilation. Pulmonary will continue to follow. CRITICAL CARE TIME: 30 minutes. Job ID: [id number]
--- NOTE | 2019-04-12 12:01 | PDOC.CPN ---
- Subjective Date: 04/12/19 Time: 12:00 Interval history: He remains intubated, sedated. He has continued to need increasing doses of pressors and innotropes. - Review of Systems ROS unobtainable: due to endotracheal tube - Objective Allergies/Adverse Reactions: Allergies Allergy/AdvReac Type Severity Reaction Status Date / Time latex Allergy Hives Verified 03/31/19 22:06 Visit Medications: Current Medications Acetaminophen (Tylenol) 650 mg PO Q6H PRN PRN Reason: Headache/Fever/Mild Pain (1-3) Al Hydroxide/Mg Hydroxide (Maalox) 30 ml PO Q4H PRN PRN Reason: Indigestion Aspirin (Ecotrin) 81 mg PO DAILY [facility] Last Admin: 04/12/19 09:32 Dose: 81 mg Atorvastatin Calcium (Lipitor) 40 mg PO HS [facility] Last Admin: 04/11/19 20:09 Dose: Not Given Bisacodyl (Dulcolax) 10 mg PO Q12H PRN PRN Reason: Constipation Bisacodyl (Dulcolax) 10 mg MD Q12H PRN PRN Reason: Constipation Dextrose/Water (Dextrose 50%) 25 gm SLOW IVP PRN PRN PRN Reason: PER HYPOGLYCEMIC PROTOCOL Last Admin: 04/08/19 21:33 Dose: 25 gm Docusate Sodium (Colace) 100 mg PO BID [facility] Last Admin: 04/12/19 09:32 Dose: 100 mg Epoetin Nadeem-epbx (Retacrit) 7,500 unit SC Q7D [facility] Last Admin: 04/09/19 09:24 Dose: 7,500 unit Famotidine (Pepcid) 20 mg PO DAILY [facility] Last Admin: 04/12/19 09:33 Dose: Not Given Famotidine (Pepcid) 20 mg SLOW IVP DAILY [facility] Last Admin: 04/12/19 09:32 Dose: 20 mg Glucagon (Glucagon) 1 mg SC PRN PRN PRN Reason: PER HYPOGLYCEMIC PROTOCOL Guaifenesin/Dextromethorphan (Robitussin Dm) 15 ml PO Q4H PRN PRN Reason: Cough Hydralazine HCl (Apresoline) 10 mg SLOW IVP Q6H PRN PRN Reason: To Maintain SBP< 140mmHG Amiodarone HCl 450 mg/Miscellaneous Medication 1 each/ Dextrose/Water 259 mls @ 0 mls/hr IVPB INF AFTAB; Protocol Last Admin: 04/11/19 20:58 Dose: 259 mls Nicardipine HCl 25 mg/ Sodium (Chloride) 260 mls @ 0 mls/hr IVPB INF PRN; Protocol PRN Reason: To Maintain SBP< 140mmHG Nitroglycerin/Dextrose (Nitroglycerin 50 Mg/250 Ml Bot) 250 mls @ 0 mls/hr IVPB PRN PRN; Protocol PRN Reason: To Maintain SBP< 140mmHG Insulin Human Regular 100 (units/ Sodium Chloride) 101 mls @ 0 mls/hr IVPB INF AFTAB; Protocol Dextrose/Water (D5w) 1,000 mls @ 0 mls/hr IV INF PRN PRN Reason: PRN HYPOGLYCEMIC PROTOCOL Fentanyl Citrate 2,000 mcg/ (Sodium Chloride) 100 mls @ 0 mls/hr IV INF AFTAB; Protocol Stop: 05/08/19 21:54 Last Admin: 04/11/19 17:13 Dose: 100 mls Fentanyl Citrate (Fentanyl Bolus) 250 mls @ 0 mls/hr IVPB PRN PRN PRN Reason: Breakthrough pain/agitation Stop: 05/08/19 21:54 Dopamine HCl/Dextrose (Dopamine 400 Mg/D5w 250 Ml) 250 mls @ 0 mls/hr IVPB INF AFTAB; Protocol Dobutamine HCl/Dextrose 500 mg (/ Device) 250 mls @ 10.26 mls/hr IVPB INF AFTAB; Protocol Last Admin: 04/12/19 05:14 Dose: 250 mls Norepinephrine Bitartrate 16 (mg/ Dextrose/Water) 250 mls @ 0 mls/hr IVPB PRN PRN; Protocol PRN Reason: to maintain SBP > 90 mmHG Last Admin: 04/12/19 06:30 Dose: 250 mls Sodium Chloride (Normal Saline 0.9%) 1,000 mls @ 0 mls/hr IV .Q0M AFTAB Piperacillin Sod/Tazobactam (Sod 2.25 gm/ Sodium Chloride) 100 mls @ 200 mls/ hr IVPB 0300,0900,1500,2100 AFTAB Last Admin: 04/12/19 09:32 Dose: 100 mls Vancomycin HCl 1.25 gm/ Sodium (Chloride) 250 mls @ 166.667 mls/hr IVPB WILLCALL AFTAB Vancomycin HCl 1 gm/ Device 200 mls @ 200 mls/hr IVPB WILLCALL AFTAB Vancomycin HCl 750 mg/ Sodium (Chloride) 250 mls @ 250 mls/hr IVPB WILLCALL AFTAB Vancomycin HCl 500 mg/ Sodium (Chloride) 100 mls @ 100 mls/hr IVPB WILLCALL AFTAB Micafungin Sodium 100 mg/ (Sodium Chloride) 100 mls @ 100 mls/hr IVPB 1300 AFTAB Last Admin: 04/11/19 13:20 Dose: 100 mls Milrinone Lactate 20 mg/ (Sodium Chloride) 100 mls @ 0 mls/hr IVPB INF AFTAB; Protocol Last Admin: 04/12/19 09:33 Dose: 100 mls Insulin Human Regular (Humulin R) 0 units SC Q4H PRN; Protocol PRN Reason: POST OP SLIDING SCALE Last Admin: 04/11/19 04:26 Dose: 3 unit Lorazepam (Ativan) 2 mg SLOW IVP Q1H PRN PRN Reason: Breakthrough agitation Stop: 05/08/19 21:54 Last Admin: 04/09/19 01:13 Dose: 2 mg Miscellaneous Medication (Pharmacy To Dose) 1 each IVPB PRN PRN PRN Reason: Pharmacy to dose Morphine Sulfate (Morphine) 2 mg SLOW IVP Q1H PRN PRN Reason: BREAKTHROUGH PAIN/Agitation Stop: 05/08/19 21:54 Hold Vancomycin For (Level >20) 0 each FS .AT DIALYSIS [facility] Ondansetron HCl (Zofran) 4 mg IVP Q6H PRN PRN Reason: Nausea/Vomiting Potassium Chloride (Kcl) 20 meq IVPB PRN PRN PRN Reason: K level </= 4.0 Promethazine HCl (Phenergan) 6.25 mg IM Q4H PRN PRN Reason: Nausea/Vomiting Propofol (Diprivan) 1,000 mg IV INF PRN; Protocol PRN Reason: TO ACHIEVE GOAL RASS Stop: 05/08/19 21:54 Propofol (Diprivan Bolus) 20 mg IV Q5MIN PRN PRN Reason: BREAKTHROUGH AGITATION Stop: 05/08/19 21:54 Sodium Chloride (Flush - Normal Saline) 10 ml IVF Q12HR [facility] Last Admin: 04/12/19 11:10 Dose: Not Given Vital Signs & Weight: Vital Signs Temp Pulse Resp Pulse Ox 04/12/19 10:28 90 04/12/19 10:00 22 H 04/12/19 08:00 97.6 F 17 98 04/12/19 07:02 100 04/12/19 06:00 20 04/12/19 04:00 13 04/12/19 03:00 98.2 F 04/12/19 02:00 17 Admit Weight 167 lb 15.876 oz Weight 182 lb 12.211 oz - Physical Exam General: other (S/I) HEENT: mucus membranes moist Neck: supple neck Cardiac: irregularly regular Lungs: scattered rhonchi Neuro: other (Sedated.) Abdomen: decreased bowel sounds Extremities: 1+ LE edema Skin: clear Musculoskeletal: no fluid collection - Labs Result Diagrams: 04/12/19 04:10 04/12/19 04:10 Troponin/CKMB CK-MB (CK-2) 75.2 ng/mL (0-6.6) H* 03/31/19 18:07 Troponin I 23.773 ng/mL (< 0.028) H* 03/31/19 20:57 - Telemetry Supraventricular conduction: atrial fibrillation - Assessment/Plan Assessment/Plan: 1. NSTEMI 2. ESRD on HD 3. Acute on chronic systolic heart failure 4. Multivessel CAD 5. Ischemic CM 6. Paroxysmal afib 7. S/P CABG x 5, BARKLEY to LAD, Sequential SVG to OM1 and OM2, SVG to PDA, SVG from OM graft to Diagonal. 8. S/P Epicardial MAZE and SRINIVAS ligation. 9. Fungemia 10. Ileus PLAN: - Afib is rate controlled. - Continue ASA/Statin. - Continue Amiodarone drip. - Continue levophed and dobutamine. Will add milrinone to improve forward flow. - Family has decided to withdraw care tomorrow morning. They feel he would not want to undergo the long road ahead to recover form his current situation. They are waiting for more family to come in with plans to withdraw care tomorrow morning.
--- NOTE | 2019-04-12 12:45 | PDOC.PALF ---
Purpose of Conference: Goals of care Care Providers Present: Dat Reed POTTERY DECORATOR-BC, Dat Garcia RN Paliative Care Family Members Present: Patient mother, his sister Paula, patient daughter and her . Meeting Comments: Family revisited what patient "was like" and discussed at length what he would want. They expressed that he would not desire continued measures to sustain life as well as a life that would consist of extensive rehab. Family shared what had been said to them by all physicians and weighed information. Therapeutic listening. Goals of Care: Family has decided to tentatively compassionately extubate Mr Chandler 04/13 in the morning. Family visits this afternoon and daughter will confirm decision. Summary: As stated above. Will communicate to physicians after the daughter confirms the familys decision this afternoon. Total Time Spent with Family: 75
[2019-04-12] MEDS ORDERED: Scopolamine 1.5 mg/72 hour Patch TD SCH (13:00)
[2019-04-12] MEDS: Amiodarone 450 MG, Admixture Fee 1 EACH in Dextrose 5% in Water 250 ML IVPB SCH (13:25)
[2019-04-12] MEDS: Micafungin 100 MG in Sodium Chloride 0.9% 100 ML IVPB SCH (13:30)
[2019-04-12 13:38] VITALS: BMI 29.5
--- NOTE | 2019-04-12 19:27 | PDOC.HOSPP ---
- Subjective Subjective: Still vent and pressor dependent. - Objective Vital Signs & Weight: Vital Signs (12 hours) Temp Pulse Resp Pulse Ox 04/12/19 19:00 98.3 F 04/12/19 18:00 26 H 04/12/19 16:00 27 H 04/12/19 15:00 98.3 F 04/12/19 14:00 26 H 04/12/19 13:37 94 04/12/19 12:00 21 H 04/12/19 11:00 98.1 F 04/12/19 10:28 90 04/12/19 10:00 22 H 04/12/19 08:00 97.6 F 17 98 Weight Admit Weight 167 lb 15.876 oz Weight 182 lb 12.211 oz Most Recent Monitor Data Heart Rate from ECG 84 NIBP 97/39 NIBP BP-Mean 58 Respiration from ECG 26 SpO2 97 I&O: 04/11/19 04/12/19 04/13/19 06:59 06:59 06:59 Intake Total 3926.7 2814 1412.3 Output Total 710 690 230 Balance 3216.7 2124 1182.3 Result Diagrams: 04/12/19 04:10 04/12/19 04:10 Additional Labs: Accuchecks 04/11/19 04/11/19 04/08/19 23:16 20:24 10:49 POC Glucose 100 95 82 04/08/19 10:00 POC Glucose 99 Hospitalist ROS - Medication Medications: Active Medications Generic Name Dose Route Start Last Admin Trade Name Freq PRN Reason Stop Dose Admin Aspirin 81 mg 04/01/19 09:00 04/12/19 09:32 Ecotrin PO 81 mg DAILY AFTAB Administration Atorvastatin Calcium 40 mg 04/02/19 21:00 04/11/19 20:09 Lipitor PO Not Given HS AFTAB Dextrose/Water 25 gm 04/08/19 12:28 04/08/19 21:33 Dextrose 50% SLOW IVP 25 gm PRN PRN Administration PER HYPOGLYCEMIC PROTOCOL Docusate Sodium 100 mg 04/06/19 21:00 04/12/19 09:32 Colace PO 100 mg BID AFTAB Administration Epoetin Nadeem-epbx 7,500 unit 04/02/19 09:15 04/09/19 09:24 Retacrit SC 7,500 unit Q7D AFTAB Administration Famotidine 20 mg 04/06/19 09:00 04/12/19 09:33 Pepcid PO Not Given DAILY AFTAB Famotidine 20 mg 04/09/19 09:00 04/12/19 09:32 Pepcid SLOW IVP 20 mg DAILY AFTAB Administration Amiodarone HCl 450 mg/ 259 mls @ 0 mls/hr 04/03/19 17:00 04/12/19 13:25 Miscellaneous Medication 1 IVPB 259 mls each/ Dextrose/Water INF AFTAB Administration Protocol As Directed Fentanyl Citrate 2,000 mcg/ 100 mls @ 0 mls/hr 04/08/19 21:54 04/11/19 17:13 Sodium Chloride IV 05/08/19 21:54 100 mls INF AFTAB Administration Protocol Per Protocol Dobutamine HCl/Dextrose 500 mg 250 mls @ 10.26 mls/hr 04/08/19 23:00 17:43 / Device IVPB 250 mls INF AFTAB Administration Protocol 5 MCG/KG/MIN Norepinephrine Bitartrate 16 250 mls @ 0 mls/hr 04/11/19 00:45 04/12/19 15:39 mg/ Dextrose/Water IVPB 250 mls PRN PRN Administration to maintain SBP > 90 mmHG Protocol As Directed Piperacillin Sod/Tazobactam 100 mls @ 200 mls/hr 04/11/19 09:00 04/12/19 13: 34 Sod 2.25 gm/ Sodium Chloride IVPB 100 mls 0300,0900,1500,2100 AFTAB Administration Micafungin Sodium 100 mg/ 100 mls @ 100 mls/hr 04/11/19 13:00 04/12/19 13:30 Sodium Chloride IVPB 100 mls 1300 AFTAB Administration Milrinone Lactate 20 mg/ 100 mls @ 0 mls/hr 04/11/19 18:30 04/12/19 09:33 Sodium Chloride IVPB 100 mls INF AFTAB Administration Protocol As Directed Insulin Human Regular 0 units 04/08/19 12:28 04/11/19 04:26 Humulin R SC 3 unit Q4H PRN Administration POST OP SLIDING SCALE Protocol Lorazepam 2 mg 04/08/19 21:54 04/09/19 01:13 Ativan SLOW IVP 05/08/19 21:54 2 mg Q1H PRN Administration Breakthrough agitation Scopolamine 3 mg 04/12/19 13:00 04/12/19 13:30 Transderm Scop TD 3 mg Q3D AFTAB Administration Sodium Chloride 10 ml 04/01/19 21:00 04/12/19 11:10 Flush - Normal Saline IVF Not Given Q12HR AFTAB - Exam General - other findings: Intubated, sedated. Heart: RRR, no murmur, no gallops, no rubs, normal peripheral pulses Heart - other findings: Some ectopy noted. Respiratory: CTAB, no wheezes, no rales, no ronchi, normal chest expansion, no tachypnea, normal percussion Gastrointestinal: soft, non-distended, normal bowel sounds, no palpable masses, no hepatomegaly, no splenomegaly, no bruit Extremities - other findings: Generalized severe edema, cyanotic fingertips. Hosp A/P (1) NSTEMI (non-ST elevated myocardial infarction) Code(s): I21.4 - NON-ST ELEVATION (NSTEMI) MYOCARDIAL INFARCTION Status: Acute (2) CAD (coronary artery disease) Code(s): I25.10 - ATHSCL HEART DISEASE OF [place] CORONARY ARTERY W/O ANG PCTRS Status: Acute (3) Anemia of renal disease Code(s): D63.1 - ANEMIA IN CHRONIC KIDNEY DISEASE Status: Chronic (4) COPD (chronic obstructive pulmonary disease) Status: Chronic (5) Diabetes mellitus Code(s): E11.9 - TYPE 2 DIABETES MELLITUS WITHOUT COMPLICATIONS Status: Chronic Qualifiers: Diabetes mellitus type: type 2 Diabetes mellitus complication status: with circulatory complication (6) ESRD (end stage renal disease) on dialysis Code(s): N18.6 - END STAGE RENAL DISEASE; Z99.2 - DEPENDENCE ON RENAL DIALYSIS Status: Chronic (7) Hyperlipidemia Code(s): E78.5 - HYPERLIPIDEMIA, UNSPECIFIED Status: Chronic (8) Hypertension Code(s): I10 - ESSENTIAL (PRIMARY) HYPERTENSION Status: Chronic (9) Ischemic cardiomyopathy Code(s): I25.5 - ISCHEMIC CARDIOMYOPATHY Status: Acute (10) BPH with obstruction/lower urinary tract symptoms Code(s): N40.1 - BENIGN PROSTATIC HYPERPLASIA WITH LOWER URINARY TRACT SYMP; N13.8 - OTHER OBSTRUCTIVE AND REFLUX UROPATHY Status: Acute (11) Atrial fibrillation Code(s): I48.91 - UNSPECIFIED ATRIAL FIBRILLATION Status: Acute (12) S/P CABG x 5 Code(s): Z95.1 - PRESENCE OF AORTOCORONARY BYPASS GRAFT Status: Acute (13) S/P left atrial appendage ligation Code(s): Z98.890 - OTHER SPECIFIED POSTPROCEDURAL STATES Status: Acute (14) Acute respiratory failure with hypoxia Code(s): J96.01 - ACUTE RESPIRATORY FAILURE WITH HYPOXIA Status: Acute - Plan POD 3 CABG x 5 vessels. Post op resp failure, re-intubated. ON pressors and vent. Family has expressed their desire to stop dialysis and compassionately withdraw the vent support tomorrow morning.
[2019-04-12] MEDS: Atorvastatin Calcium 40 MG TAB PO SCH (20:08)
[2019-04-12 23:03] VITALS: TEMP 98.1
--- NOTE | 2019-04-14 02:25 | DIS ---
DATE OF ADMISSION: 03/31/2019 DATE OF DISCHARGE: 04/13/2019 DISCHARGE DIAGNOSES: 1. Acute on chronic systolic heart failure. 2. Non ST-elevation myocardial infarction. 3. Ischemic cardiomyopathy. 4. Coronary artery disease. 5. End-stage renal disease on hemodialysis. 6. Chronic obstructive pulmonary disease. 7. Anemia of chronic renal disease. 8. Hyperlipidemia. 9. Hypertension. 10. Atrial fibrillation. 11. Acute respiratory failure with hypoxia. 12. Hypotension due to cardiogenic shock. PROCEDURES PERFORMED: 1. Heart catheterization revealing multi-vessel disease. 2. Coronary artery bypass graft x5 vessels with left atrial appendage ligation. HISTORY OF PRESENT ILLNESS: This patient is a 73-year-old man, who presented initially via the emergency department. Please see the full H and P by Dr. Marie on 03/31/2019. Briefly, the patient presented with evidence of NSTEMI, was seen initially by Cardiology and Pulmonary Critical Care, and placed into the ICU setting. He appeared to be in some volume overload. He was also seen by Nephrology, who continued dialysis. The patient had echocardiogram at that time revealing an ejection fraction of 20% to 25% with grade 2/3 diastolic dysfunction, mild concentric LVH, and elevated right ventricular pressures. He was seen by Cardiology and underwent a heart catheterization revealing severe multivessel coronary artery disease including severe proximal mid LAD, severe ostial left circumflex, severe OM1 and OM3, and severe RCA. He was then seen by CV Surgery and plan was for bypass. The patient did subsequently undergo the bypass procedure of 5-vessel bypasses. Subsequently, the patient was taken back to the ICU and extubated, unfortunately, fairly promptly failed with hypoxic respiratory failure and required re-intubation. His pressures dropped and he required some pressor support. Repeat echocardiogram appeared to be consistent with an ejection fraction of around 20% to 25%. However, the patient appeared to have perpetuating congestive heart failure. He had substantial fluid retention and given his hypotension, was not a good opportunity to have significant fluid removal at the time of dialysis because of the hypotension. Subsequently, echocardiogram revealed an ejection fraction down to 10% to 15% with global hypokinesis. The patient appeared to be suffering from some cardiogenic shock with hypotension and volume overload. The patient's family remained at the bedside and ultimately decided they did not want to pursue anything further with aggressive treatments. They initially maintained pressors, however as it appeared the patient was not responding, they requested discontinuation of dialysis, comfort measures and ultimately were seen by Palliative Care and through family discussion, they decided to withdrawal care and compassionately extubate the patient. This was done on the resaw operator of and the patient promptly at 0231 hours. The patient's family was at the bedside. No autopsy was requested. Time spent in discharge activities was 31 min. Job ID: [id number] MTDD
--- NOTE | 2019-04-14 12:41 | EKG ---
Test Reason : POST CABG Blood Pressure : / mmHG Vent. Rate : 083 BPM Atrial Rate : 083 BPM P-R Int : 228 ms QRS Dur : 128 ms QT Int : 384 ms P-R-T Axes : 089 027 -48 degrees QTc Int : 451 ms Sinus rhythm with 1st degree A-V block Non-specific intra-ventricular conduction block Cannot rule out Septal infarct (cited on or before 03-APR-2019) Lateral injury pattern * ACUTE GA * Abnormal ECG When compared with ECG of 03-APR-2019 16:02, Sinus rhythm has replaced Atrial fibrillation Vent. rate has decreased BY 46 BPM QRS duration has increased Serial changes of evolving Septal infarct Present Confirmed by JUNE SHIRLEY (2) on 04/14/2019 12:41:27 PM Referred By: GIANNI Confirmed By:JUNE SHIRLEY
--- NOTE | 2019-04-14 14:10 | EKG ---
Test Reason : Blood Pressure : / mmHG Vent. Rate : 109 BPM Atrial Rate : 136 BPM P-R Int : 000 ms QRS Dur : 100 ms QT Int : 360 ms P-R-T Axes : 000 035 114 degrees QTc Int : 484 ms Atrial fibrillation with rapid ventricular response with premature ventricular or aberrantly conducte d complexes Septal infarct (cited on or before 03-APR-2019) Abnormal ECG When compared with ECG of 08-APR-2019 13:01, (Unconfirmed) Atrial fibrillation has replaced Sinus rhythm QRS duration has decreased Serial changes of evolving Septal infarct Present Confirmed by JUNE SHIRLEY (2) on 04/14/2019 2:10:14 PM Referred By: GAYATHRI Confirmed By:JUNE SHIRLEY
== END 2019-04-13 02:31 | disposition expired | DRG 228 ==
LOC: ERS 13:31 → CCU 15:17
PROVIDERS: ADMIT Internal Medicine; ATTEND Internal Medicine
PROC: 02100Z9 Bypass Coronary Artery, One Artery from Left Internal Mammary, Open Approach (ICD-10-PCS; 2019-03-31)
PROC: 5A1945Z Respiratory Ventilation, 24-96 Consecutive Hours (ICD-10-PCS; 2019-03-31)
PROC: 0BH17EZ Insertion of Endotracheal Airway into Trachea, Via Natural or Artificial Opening (ICD-10-PCS; 2019-03-31)
PROC: 02580ZZ Destruction of Conduction Mechanism, Open Approach (ICD-10-PCS; 2019-03-31)
PROC: 4A023N7 Measurement of Cardiac Sampling and Pressure, Left Heart, Percutaneous Approach (ICD-10-PCS; principal; 2019-04-01)
PROC: B2111ZZ Fluoroscopy of Multiple Coronary Arteries using Low Osmolar Contrast (ICD-10-PCS; 2019-04-01)
PROC: B2151ZZ Fluoroscopy of Left Heart using Low Osmolar Contrast (ICD-10-PCS; 2019-04-01)
PROC: 5A1D70Z Performance of Urinary Filtration, Intermittent, Less than 6 Hours Per Day (ICD-10-PCS; 2019-04-02)
PROC: 021309W Bypass Coronary Artery, Four or More Arteries from Aorta with Autologous Venous Tissue, Open Approach (ICD-10-PCS; 2019-04-08)
PROC: 06BQ4ZZ Excision of Left Saphenous Vein, Percutaneous Endoscopic Approach (ICD-10-PCS; 2019-04-08)
PROC: 5A1221Z Performance of Cardiac Output, Continuous (ICD-10-PCS; 2019-04-08)
PROC: 02L70ZK Occlusion of Left Atrial Appendage, Open Approach (ICD-10-PCS; 2019-04-08)
PROC: 30233N1 Transfusion of Nonautologous Red Blood Cells into Peripheral Vein, Percutaneous Approach (ICD-10-PCS; 2019-04-08)
PROC: 4A133BC Monitoring of Arterial Pressure, Coronary, Percutaneous Approach (ICD-10-PCS; 2019-04-10)
DX: I21.4 Non-ST elevation (NSTEMI) myocardial infarction (principal); J96.01 Acute respiratory failure with hypoxia; N18.6 End stage renal disease; I50.43 Acute on chronic combined systolic (congestive) and diastolic (congestive) heart failure; I13.2 Hypertensive heart and chronic kidney disease with heart failure and with stage 5 chronic kidney disease, or end stage renal disease; N25.81 Secondary hyperparathyroidism of renal origin; K56.7 Ileus, unspecified; E87.70 Fluid overload, unspecified; E78.5 Hyperlipidemia, unspecified; N40.0 Benign prostatic hyperplasia without lower urinary tract symptoms; J44.9 Chronic obstructive pulmonary disease, unspecified; D63.1 Anemia in chronic kidney disease; G47.33 Obstructive sleep apnea (adult) (pediatric); E11.22 Type 2 diabetes mellitus with diabetic chronic kidney disease; N40.1 Benign prostatic hyperplasia with lower urinary tract symptoms; R33.8 Other retention of urine; E78.00 Pure hypercholesterolemia, unspecified; I73.9 Peripheral vascular disease, unspecified; H91.90 Unspecified hearing loss, unspecified ear; M14.672 Charcot's joint, left ankle and foot; Z51.5 Encounter for palliative care; I25.10 Atherosclerotic heart disease of native coronary artery without angina pectoris; I48.0 Paroxysmal atrial fibrillation; I25.5 Ischemic cardiomyopathy; R57.0 Cardiogenic shock; I95.89 Other hypotension; E11.40 Type 2 diabetes mellitus with diabetic neuropathy, unspecified; E11.319 Type 2 diabetes mellitus with unspecified diabetic retinopathy without macular edema; C44.90 Unspecified malignant neoplasm of skin, unspecified; Z79.4 Long term (current) use of insulin; Z89.432 Acquired absence of left foot; Z99.2 Dependence on renal dialysis; Z91.040 Latex allergy status; Z86.010 Personal history of colon polyps; Z79.01 Long term (current) use of anticoagulants
CPT/HCPCS: 31500; 36415; 36416; 36430; 71045; 80048; 80053; 82550; 82553; 82607; 82746; 82805; 83036; 83605; 83735; 83880; 84100; 84443; 84484; 85014; 85018; 85025; 85027; 85049; 85610; 85730; 86850; 86900; 86901; 87040; 87070; 87077; 87103; 87149; 87186; 87205; 87340; 90935; 93005; 93010; 93306; 93458; 93798; 94002; 94003; 94640; 94644; 94660; 96365; 96366; 96374; 99152; 99153; C1769; G0257; J0282; J1160; J1250; J1265; J1642; J1644; J1815; J1885; J1940; J2001; J2060; J2248; J2250; J2260; J2270; J2310; J2405; J2440; J2543; J2720; J3010; J3370; J3475; J3480; J3490; J7070; J7512; J7611; J7620; P9016; P9045; P9047; Q5105; Q9967; S0017; S0028